=== PATIENT | male | born 1930 | race Caucasian/White ===

== ENCOUNTER 2016-04-11 12:57 | Emergency (ER) | payer OTHER ==
[2016-04-11 13:24] VITALS: BP 140/69; PULSE 74; TEMP 97.8; BMI 19.7
--- NOTE | 2016-04-11 14:44 | PDOC ---
History of Present Illness - General Chief Complaint: Pain Stated Complaint: FALL (PCP SENT) Time Seen by Provider: 04/11/16 14:26 History Source: Patient Exam Limitations: No Limitations - History of Present Illness Initial Comments: 04/11/16 14:46 86y M hx of afib on coumadin, stomach ca, htn, presents from PMD office for evvaluation. The pt fell ou tof bed 1 week ago, approx 2 feet, complaining of pain to his L hip, L rib area. Pt dneis any headache, neck pain, back pain, loc , vision changes, n/v, cough, sob, cp, abd pain, le pain. pt went to dr. salcedo office for evaluation and was sent to the ED for evaluation. pt has been citlaliin yesi per . pt ambulates with assistance and denies any pain when ambulating. Past History - Past Medical History Allergies/Adverse Reactions: Allergies Allergy/AdvReac Type Severity Reaction Status Date / Time aspirin Allergy Rash Verified 04/11/16 13:25 Home Medications: Ambulatory Orders Metoprolol "Xl" (Sustain Act) [Toprol Xl] 50 mg PO DAILY 08/09/11 Warfarin Na [Coumadin] 2 mg PO DAILY@1800 08/09/11 Furosemide [Lasix] 20 mg PO ASDIR 04/11/16 Metformin HCl 500 mg PO DAILY 04/11/16 Potassium Chloride [Klor-Con M10] 10 meq PO ASDIR 04/11/16 Tramadol HCl 50 mg PO TID #21 tablet MDD 3 04/11/16 Anemia: No Asthma: No Cancer: Yes (stomach) Cardiac Disorders: Yes (ATRIAL FIBRILLATION) CVA: No COPD: No CHF: No Dementia: No Diabetes: No GI Disorders: No Disorders: No HTN: Yes Hypercholesterolemia: No Liver Disease: No Seizures: No Thyroid Disease: No - Surgical History Abdominal Surgery: Yes Appendectomy: No Cardiac Surgery: No Cholecystectomy: Yes Lung Surgery: No Neurologic Surgery: No Orthopedic Surgery: No - Psycho/Social/Smoking Cessation Hx Suicidal Ideation: No Smoking History: Never smoked Information on smoking cessation initiated: No Hx Alcohol Use: No Drug/Substance Use Hx: No Review of Systems - Review of Systems Able to Perform ROS?: Yes Comments:: 04/11/16 14:57 Constitutional - no reported Fever, Chills, weakness, HEENT: no reported vision changes, sore throat Respiratory: no reported cough, sob, hemoptysis Cardiac: no reported chest pain, palpitations, light headedness, leg swelling Abd/GI: no reported abd pain, nausea, vomiting, blood per rectum, melena, diarrhea : no reported dysuria, frequency, discharge Musculskelatal - +L sided rib pain, L hip pain no reported back pain, joint swelling skin - no reported bruising, erythema, rash neurological: no reported headache, numbness, focal weakness, tingling, ataxia, weakness hematologic: no reported anemia, easy bruising, easy bleeding *Physical Exam - Vital Signs Last Vital Signs Temp Pulse Resp BP Pulse Ox 97.8 F 74 18 140/69 100 04/11/16 13:19 04/11/16 13:19 04/11/16 13:19 04/11/16 13:19 04/11/16 13:19 - Physical Exam Comments: 04/11/16 14:59 GENERAL: The patient is awake, alert, and fully oriented, Nontoxic - in no acute distress. HEAD: Normocephalic, atraumatic. EYES: extraocular movements intact, sclera anicteric, conjunctiva clear. ENT: Normal voice, Moist mucous membranes. NECK: Normal range of motion, supple LUNGS: Breath sounds equal, clear to auscultation bilaterally. No wheezes, no rhonchi, no rales. HEART: Regular rate and rhythm, normal S1 and S2 without murmur, rub or gallop. ABDOMEN: Soft, nontender, normoactive bowel sounds. No guarding, no rebound. No CVA tenderness NEUROLOGICAL: No facial assymetry, Normal speech, PSYCH: Normal mood, normal affect. SKIN: Warm, Dry, normal turgor, Back: No midline tenderness to the cervical, thoracic or lumbar spine Musculoskelatal: FROM of b/l shoulders, elbows, wrist. FROM of hips, knees, ankles - No signs of ecchymosis, erythema, or crepitus noted on palpation extremities, chest wall, clavicals, back. mild tenderness to L lateral ribs, w/ o crepitus/eechymosis/erythema, minma tenderness to lL iliac crest, slightly shuffling gait, but no discomfort when ambulating ED Treatment Course - LABORATORY CBC & Chemistry Diagram: 04/11/16 15:08 04/11/16 15:08 Medical Decision Making - Medical Decision Making 04/11/16 15:01 no focal bony tenderness on back to suggest spinal fx no trauma on scalp no headache/n/v/dizziness or other sypmtoms to suggest ich will ck labs to r/o metabolic derangement, anemia will ck inr will ck xray of ribs, hip/pelvis will give tylenol will reassess 04/11/16 17:18 labs reviewed INR slightly thereapeutic xray of ribs/chest/hip negative cxr shows some atelectasis - inconsistant with pna as pt is otherwise asypmtomatic will d/c the pt to fu with pmd reutrn precuations were discussed I discussed the physical exam findings, ancillary test results and final diagnoses with the patient. I answered all of the patient's questions. The patient was satisfied with the care received and felt comfortable with the discharge plan and treatment plan. The patient will call their primary care physician within 24 hours to arrange follow-up and will return to the Emergency Department with any new, persistent or worsening symptoms. caes was d/w dr haile, agrees [facility] and will follow up with him tomorrow *DC/Admit/Observation/Transfer Diagnosis at time of Disposition: Rib pain on left side Fall from bed Qualifiers: Encounter type: initial encounter Qualified Code(s): W06.XXXA - Fall from bed, initial encounter - Discharge Dispostion Disposition: HOME Condition at time of disposition: Improved Admit: No - Prescriptions Prescriptions: Tramadol HCl 50 mg PO TID #21 tablet MDD 3 - Referrals Referrals: Tung Haile MD [Primary Care Provider] - - Patient Instructions Printed Discharge Instructions: DI for Rib Contusion Additional Instructions: Return to the emergency department immediately with ANY new, persistent or worsening symptoms including any worseing pain. Take iburpfeon/tylenol for your pain. You MUST call and follow up with your doctor tomorrow for further evaluation of your symptoms. Results were discussed with you. Please make sure your doctor reviews the results of your emergency evaluation. If you had any xrays during your visit, it was read preliminarily by myself, a Radiologist will review it and if there are any additional findings we will call you.
[2016-04-11] MEDS ORDERED: ACETAMINOPHEN 325 MG TABLET (FP) PO ONE (14:45)
[2016-04-11] MEDS ORDERED: ACETAMINOPHEN 325 MG TABLET (FP) ONE (14:53)
[2016-04-11 15:29] LABS: BASOPHIL 1.4 % (0-2.0); EOSINOPHIL 0.8 % (0-4.5); MEAN CELL VOLUME 80.6 fl (80-96); NEUTROPHILS 52.7 % (42.8-82.8); PLATELET COUNT 479 K/MM3 (134-434); RDW 18.5 % (11.9-15.9); WHITE BLOOD COUNT 7.7 K/mm3 (4.0-10.0)
[2016-04-11 15:38] LABS: INR 3.93 (0.82-1.09); PROTHROMBIN TIME (PATIENT) 44.4 SEC (9.98-11.88)
[2016-04-11 15:40] LABS: ALBUMIN 3.2 g/dl (3.4-5.0); ALK PHOS 169 U/L (45-117); ANION GAP 10 (8-16); BILIRUBIN,TOTAL 0.6 mg/dL (0.2-1.0); CALCIUM 9.4 mg/dL (8.5-10.1); CO2 29 mmol/L (21-32); GLUCOSE,RANDOM 91 mg/dL (74-106); SGOT/AST 68 U/L (15-37); SGPT/ALT 49 U/L (12-78); TOT PROT 6.9 g/dl (6.4-8.2)
== END 2016-04-11 19:15 | disposition home or self-care (01) ==
LOC: JER 12:57
DX: R07.81 Pleurodynia (principal); M25.552 Pain in left hip; W06.XXXA Fall from bed, initial encounter; Y93.89 Activity, other specified; Y92.013 Bedroom of single-family (private) house as the place of occurrence of the external cause; I48.91 Unspecified atrial fibrillation; Z79.01 Long term (current) use of anticoagulants; I10 Essential (primary) hypertension; Z85.028 Personal history of other malignant neoplasm of stomach
CPT/HCPCS: 36415; 71020-TC; 71101-TC; 73523-TC; 80053; 85025; 85610; 99281-25

== ENCOUNTER 2016-04-15 10:43 | Inpatient (IN) | payer OTHER ==
--- NOTE | 2016-04-15 12:23 | PDOC ---
History of Present Illness - General Chief Complaint: Pain Stated Complaint: ABD PAIN Time Seen by Provider: 04/15/16 11:58 History Source: Patient, Spouse - History of Present Illness Timing/Duration: reports: constant Quality: reports: severe Abdominal Pain Onset Location: reports: LUQ Pain Radiation: reports: no radiation Past History - Past Medical History Allergies/Adverse Reactions: Allergies Allergy/AdvReac Type Severity Reaction Status Date / Time aspirin Allergy Rash Verified 04/15/16 10:47 Home Medications: Ambulatory Orders Metoprolol "Xl" (Sustain Act) [Toprol Xl] 50 mg PO DAILY 08/09/11 Warfarin Na [Coumadin] 2 mg PO DAILY@1800 08/09/11 Furosemide [Lasix] 20 mg PO ASDIR 04/11/16 Metformin HCl 500 mg PO DAILY 04/11/16 Potassium Chloride [Klor-Con M10] 10 meq PO ASDIR 04/11/16 Tramadol HCl 50 mg PO TID #21 tablet MDD 3 04/11/16 Anemia: No Asthma: No Cancer: Yes (stomach) Cardiac Disorders: Yes (ATRIAL FIBRILLATION) CVA: No COPD: No CHF: No Dementia: No Diabetes: Yes GI Disorders: No Disorders: No HTN: Yes Hypercholesterolemia: Yes Liver Disease: No Seizures: No Thyroid Disease: No - Surgical History Abdominal Surgery: Yes Appendectomy: No Cardiac Surgery: No Cholecystectomy: Yes Lung Surgery: No Neurologic Surgery: No Orthopedic Surgery: No - Psycho/Social/Smoking Cessation Hx Suicidal Ideation: No Smoking History: Never smoked Have you smoked in the past 12 months: No Information on smoking cessation initiated: No Hx Alcohol Use: No Drug/Substance Use Hx: No Review of Systems - Review of Systems Constitutional: No: Chills, Fever Respiratory: No: Cough, Shortness of Breath Cardiac (ROS): No: Chest Pain ABD/GI: No: Constipated, Diarrhea, Nausea, Rectal Bleeding, Vomiting, Tarry Stools : No: Dysuria *Physical Exam - Vital Signs Last Vital Signs Temp Pulse Resp BP Pulse Ox 98.4 F 73 18 153/98 100 04/15/16 10:47 04/15/16 10:47 04/15/16 10:47 04/15/16 10:47 04/15/16 10:47 - Physical Exam General Appearance: Yes: Appropriately Dressed. No: Apparent Distress HEENT: positive: Normal Voice Respiratory/Chest: positive: Lungs Clear, Normal Breath Sounds. negative: Respiratory Distress Cardiovascular: positive: Regular Rate, S1, S2 Gastrointestinal/Abdominal: positive: Normal Bowel Sounds, Soft. negative: Tender, Distended, Guarding, Hernia, Mass Musculoskeletal: negative: CVA Tenderness Extremity: positive: Normal Inspection Integumentary: positive: Dry, Warm Neurologic: positive: Fully Oriented, Alert, Normal Mood/Affect ED Treatment Course - LABORATORY CBC & Chemistry Diagram: 04/15/16 12:01 04/15/16 12:01 - RADIOLOGY Radiology Studies Ordered: Category Date Time Status ABDOMEN & PELVIS CT WITH CONTR [CT] Stat CT Scan 04/15/16 12:18 Ordered CHEST X-RAY PORTABLE* [RAD] Stat Radiology 04/15/16 11:59 Ordered Medical Decision Making - Medical Decision Making 04/15/16 12:19 86-year-old male, history of A. fib on Coumadin, stomach cancer status post gastrectomy 40 years ago, hypertension, presents with abd pain. Patient reports left upper quadrant pain that has been constant 2 weeks, unable to describe. As per , pain so severe that pt has a difficult time ambulating. Pt was seen in ED status post fall 4 days ago and was complaining of left rib pain then with negative x-rays. insists that LUQ pain started prior to fall. Pt denies changes to bowel movement, blood per rectum, melena, nausea, vomiting, fever or chills. No recent weight loss. Reports no chest pain or shortness of breath. See exam Upper abd pain Stable w/ unimpressive abd exam -pain control -labs -CT given h/o gastric ca -dispo pending 04/15/16 12:24 04/15/16 13:40 Patient's PMD ,Dr. Tung Amador, contacted me. Agrees with CAT scan in ED and would like to be contacted with disposition at [phone] 04/15/16 16:15 04/15/16 16:56 CT read *DC/Admit/Observation/Transfer Diagnosis at time of Disposition: Pneumonia Qualifiers: Pneumonia type: due to unspecified organism Laterality: unspecified laterality Lung location: unspecified part of lung Qualified Code(s): J18.9 - Pneumonia, unspecified organism - Discharge Dispostion Condition at time of disposition: Fair Admit: Yes Addendum entered and electronically signed by Gavin Geiger PA 04/15/16 17:02 : CT demonstrates bibasal consolidation/pneumonia, right more than left with borderline dilatation of the common bile duct and constipation. Case discussed with Dr. Amador who recommends treating for possible pneumonia and admitting with consults to Dr. Dockery of pulmonary and Dr. Sparrow of GI
[2016-04-15 12:39] LABS: EOSINOPHIL 0.3 % (0-4.5); MCH 25.9 pg (25.7-33.7); MEAN CELL VOLUME 80.9 fl (80-96); MEAN PLT VOLUME 9.2 fl (7.5-11.1); NEUTROPHILS 62.4 % (42.8-82.8); PLATELET COUNT 373 K/MM3 (134-434); RDW 19.2 % (11.9-15.9); WHITE BLOOD COUNT 8.8 K/mm3 (4.0-10.0)
[2016-04-15 12:50] LABS: ALBUMIN 2.9 g/dl (3.4-5.0); ALK PHOS 156 U/L (45-117); ANION GAP 9 (8-16); BILIRUBIN,TOTAL 0.7 mg/dL (0.2-1.0); CALCIUM 8.8 mg/dL (8.5-10.1); CO2 29 mmol/L (21-32); GLUCOSE,RANDOM 100 mg/dL (74-106); SGOT/AST 32 U/L (15-37); SGPT/ALT 28 U/L (12-78); TOT PROT 6.5 g/dl (6.4-8.2)
[2016-04-15 12:52] LABS: TROPONIN I < 0.02 ng/ml (0.00-0.05)
[2016-04-15] MEDS ORDERED: AZITHROMYCIN IVPB 500 MG in DEXTROSE 5%-WATER - 250 ML IVPB ONE (16:54)
[2016-04-15] MEDS ORDERED: CEFTRIAXONE 50 ML ONE (17:44)
[2016-04-15] MEDS ORDERED: AZITHROMYCIN IVPB 250 ML IVPB ONE ×2 (17:44→17:46)
[2016-04-15] MEDS ORDERED: POLYETHYLENE GLYCOL 3350 255 GM BTL PO ONE (18:09)
[2016-04-15 18:52] LABS: PROTHROMBIN TIME (PATIENT) 65.6 SEC (9.98-11.88)
[2016-04-15 18:58] LABS: INR 5.75 (0.82-1.09)
[2016-04-15 19:31] VITALS: BMI 24.2
[2016-04-15] MEDS ORDERED: POLYETHYLENE GLYCOL 3350 119 GM BTL PO ONE (21:15)
[2016-04-15 21:32] LABS: PROTHROMBIN TIME (PATIENT) 61.7 SEC (9.98-11.88)
[2016-04-15 21:39] LABS: INR 5.42 (0.82-1.09)
[2016-04-15] MEDS: PIPERACILLIN/TAZOB 3.375 GM/50 ML PRE-DOCKED IVPB SCH (22:46)
[2016-04-15] MEDS: DOCUSATE SODIUM 100 MG CAPSULE (FP) PO SCH (22:46)
[2016-04-16] MEDS: DOCUSATE SODIUM 100 MG CAPSULE (FP) PO SCH ×3 (05:35→21:56)
[2016-04-16] MEDS: PIPERACILLIN/TAZOB 3.375 GM/50 ML PRE-DOCKED IVPB SCH ×2 (05:35→15:32)
[2016-04-16] MEDS: metFORMIN HCL 500 MG TABLET (FP) PO SCH (06:32)
[2016-04-16 09:07] LABS: MCH 25.9 pg (25.7-33.7); MCHC 32.3 g/dl (32.0-35.9); MEAN CELL VOLUME 80.1 fl (80-96); MEAN PLT VOLUME 8.9 fl (7.5-11.1); PLATELET COUNT 348 K/MM3 (134-434); RDW 19.1 % (11.9-15.9); WHITE BLOOD COUNT 9.2 K/mm3 (4.0-10.0)
[2016-04-16 09:16] LABS: PROTHROMBIN TIME (PATIENT) 55.4 SEC (9.98-11.88)
[2016-04-16 10:16] LABS: INR 4.88 (0.82-1.09)
[2016-04-16 11:41] LABS: PLATELET COMMENT2 NO CLOTTING DETECTED; PLATELET ESTIMATE ADEQUATE (NORMAL)
[2016-04-16] MEDS: POTASSIUM CHLORIDE TABS 10 MEQ TABLET.ER (FP) PO SCH (11:41)
[2016-04-16] MEDS: METOPROLOL SUCCINATE 50 MG TAB.SR.24H (FP) PO SCH (11:41)
[2016-04-16 12:34] LABS: CALCIUM 8.7 mg/dL (8.5-10.1); CREATININE 0.8 mg/dL (0.7-1.3)
--- NOTE | 2016-04-16 13:03 | CONSULT ---
Cardiology Consult (text) - Consultation Consultation Note: Cardiology (Dr. Colmenares covering Dr. Ibrahim) Patient seen and examined Consulted for management of AFib, HTN and anticoagulation 86 M with h/o DM2, AF on AC (coumadin), S/P remote gastrectomy for gastric CA, HTN, admitted for evaluation of 2 week h/o left upper quadrant abdominal pain. Denies chest pain, dyspnea or palpitations at bedside and reports recent fall 1 week ago transferring from bed to standing No h/o CVA, DE or CAD Followed by Dr. Ibrahim and last seen approx 6 months ago Meds: Metoprolol 50mg daily Coumadin Metformin 500 Tramadol ALL: Asa - rash PE: 157/81mmHg, P 79/min Afebrile No distress Confused Irregular with no murmur Lungs clear bilaterally Abd is tender in LUQ No edema ECG: Afib at 85/min with LAFB and LVH Labs: INR 4.88, Hgb 11.6, Plt 348,000 BUN/Cr 10/0.8 AST/ALT 32/28 IMP: 1) AFib -Well rate controlled -Continue Metoprolol at 50mg daily -Supratherapeutic INR without bleeding -Agree with holding coumadin -Need to reassess anticoagulation candidacy given h/o recent fall -Would start IV UFH once INR <2. -Allergy to ASA 2) HTN -Elevated today -Will monitor and consider addition of CCB if remains elevated DM as per primary team Undergoing GI evaluation for abdominal pain and h/o gastric cancer
--- NOTE | 2016-04-16 13:10 | HP ---
Admitting History and Physical - Admission Chief Complaint: s/p fall 2 wks ago c/o luq pain History of Present Illness: s/p fall pneumonia on ct cheast stage 2 sacral ulcer constipated relieved w miralax feels better today History Source: Patient, Family Member Limitations to Obtaining History: Language Barrier, Other (mild dementia) - Past Medical History Cardiovascular: Yes: AFIB Pulmonary: Yes: Pneumonia Gastrointestinal: Yes: Constipation, Other (total gastrectomy /??? cancer stomach and cholocystectomy) Endocrine: Yes: Diabetes Mellitus Dermatology: Yes: Other (easy brusabiliy) - Smoking History Smoking history: Never smoked Have you smoked in the past 12 months: No - Alcohol/Substance Use Hx Alcohol Use: No - Social History Usual Living Arrangement: Yes: With Spouse ADL: Family Assistance History of Recent Travel: No Home Medications - Allergies Allergies/Adverse Reactions: Allergies Allergy/AdvReac Type Severity Reaction Status Date / Time aspirin Allergy Rash Verified 04/15/16 10:47 - Home Medications Home Medications: Ambulatory Orders Metoprolol "Xl" (Sustain Act) [Toprol Xl] 50 mg PO DAILY 08/09/11 Warfarin Na [Coumadin] mg PO DAILY@1800 08/09/11 Metformin HCl 500 mg PO DAILY 04/11/16 Tramadol HCl 50 mg PO TID #21 tablet MDD 3 04/11/16 Family Disease History - Family Disease History Family History: Unremarkable Review of Systems - Review of Systems Constitutional: reports: Other (abd pain) Eyes: reports: No Symptoms HENT: reports: No Symptoms Neck: reports: No Symptoms Cardiovascular: reports: No Symptoms Respiratory: reports: No Symptoms Gastrointestinal: reports: Bloating, Other (pain) Genitourinary: reports: No Symptoms Breasts: reports: No Symptoms Reported Musculoskeletal: reports: No Symptoms Integumentary: reports: Bruising Neurological: reports: Confusion (at times) Endocrine: reports: No Symptoms Hematology/Lymphatic: reports: Easily Bruised Psychiatric: reports: Other (dementia mild) Physical Examination Vital Signs: Vital Signs Temperature 98.0 F 04/16/16 09:00 Pulse Rate 79 04/16/16 11:19 Respiratory Rate 20 04/16/16 09:00 Blood Pressure 157/81 04/16/16 11:19 O2 Sat by Pulse Oximetry (%) 98 04/16/16 10:00 Constitutional: Yes: No Distress Eyes: Yes: WNL HENT: Yes: WNL Neck: Yes: WNL Cardiovascular: Yes: Pulse Irregular Respiratory: Yes: WNL Gastrointestinal: Yes: Distention, Hypoactive Bowel Sounds ...Rectal Exam: Yes: Deferred Renal/: Yes: WNL Breast(s): Yes: WNL Musculoskeletal: Yes: WNL Extremities: Yes: WNL Edema: No Edema: LUE: Trace Peripheral Pulses WNL: Yes Integumentary: Yes: Bruising Wound/Incision: Yes: Other (sacral ulcer stage 2) ...Motor Strength: WNL Psychiatric: Yes: Other (mild dementia) Labs: CBC, BMP 04/16/16 08:05 04/16/16 08:05 Problem List - Problems (1) Impaction of colon Code(s): K56.49 - OTHER IMPACTION OF INTESTINE (2) A-fib Code(s): I48.91 - UNSPECIFIED ATRIAL FIBRILLATION Assessment/Plan get aic level id gi to see pt giveb enema 1 liter fl resrition daily
--- NOTE | 2016-04-16 13:45 | CONSULT ---
Consult Consult Specialty:: GI Referred by:: Dr Lana Amador Reason for Consultation:: Abdominal pain - History of Present Illness Chief Complaint: Abdominal pain History of Present Illness: 86 M with h/o AF on AC, S/P remote gastrectomy for gastric CA, HTN, admitted for evaluation of 2 week h/o abdominal pain. He reports pain has been severe, /. Fell 4 days ago and was evaluated in the ED for L rib pain. Pain preceded fall as per . A CT was done That shows a troubling constellation of pancreatic and common bile duct dilatation. f - History Source History Provided By: Patient, Family Member, Medical Record Limitations to Obtaining History: No Limitations - Past Medical History Cardio/Vascular: Yes: AFIB Pulmonary: Yes: Pneumonia Gastrointestinal: Yes: Constipation, Other (total gastrectomy /??? cancer stomach and cholocystectomy) Endocrine: Yes: Diabetes Mellitus Dermatology: Yes: Other (easy brusabiliy) - Alcohol/Substance Use Hx Alcohol Use: No - Smoking History Smoking history: Never smoked Have you smoked in the past 12 months: No - Social History ADL: Family Assistance History of Recent Travel: No Home Medications - Allergies Allergies/Adverse Reactions: Allergies Allergy/AdvReac Type Severity Reaction Status Date / Time aspirin Allergy Rash Verified 04/15/16 10:47 - Home Medications Home Medications: Ambulatory Orders Metoprolol "Xl" (Sustain Act) [Toprol Xl] 50 mg PO DAILY 08/09/11 Warfarin Na [Coumadin] mg PO DAILY@1800 08/09/11 Metformin HCl 500 mg PO DAILY 04/11/16 Tramadol HCl 50 mg PO TID #21 tablet MDD 3 04/11/16 Physical Exam-GI Vital Signs: Vital Signs Temperature 98.0 F 04/16/16 09:00 Pulse Rate 79 04/16/16 11:19 Respiratory Rate 20 04/16/16 09:00 Blood Pressure 157/81 04/16/16 11:19 O2 Sat by Pulse Oximetry (%) 98 04/16/16 10:00 Constitutional: Yes: Well Nourished, Anxious HENT: Yes: Normocephalic Neck: Yes: Supple Cardiovascular: Yes: Pulse Irregular Respiratory: Yes: Regular Gastrointestinal Inspection: Yes: WNL ...Palpate: Yes: Soft, Tenderness, Epigastium ...Percussion: Yes: Tympanitic Labs: CBC, BMP 04/16/16 08:05 04/16/16 08:05 INR, PTT INR 4.88 (0.82-1.09) H* 04/16/16 08:20 Hepatic Panel Total Bilirubin 0.7 mg/dL (0.2-1.0) 04/15/16 12:01 AST 32 U/L (15-37) D 04/15/16 12:01 ALT 28 U/L (12-78) D 04/15/16 12:01 Alkaline Phosphatase 156 U/L (45-117) H 04/15/16 12:01 Albumin 2.9 g/dl (3.4-5.0) L 04/15/16 12:01 Imaging - Results Cat Scan: Report Reviewed Assessment/Plan 86 M with above history now admitted with 2 week h/o abdominal pain with CT showing double duct sign. Normal LFT's. R/O pancreatic ca vs cholangiocarcinoma. MRI ordered. Tumor markers ordered Continue low Na diet Will follow
--- NOTE | 2016-04-16 14:16 | PN ---
Progress Note (short form) - Note Progress Note: PULMONARY CHART REVIEWED CT ABD NOTED HAVE ORDERED CT CHEST NO CONTRAST FULL CONSULT TO FOLLOWGaby VALENZUELA MD
--- NOTE | 2016-04-16 15:13 | CONSULT ---
Consult Consult Specialty:: infectious diseases Referred by:: Reason for Consultation:: pneumonia,abd pain - History of Present Illness Chief Complaint: abd pain History of Present Illness: Patient does not speak bolivian history taken from the charts 86-year-old male, history of A. fib on Coumadin, stomach cancer status post gastrectomy 40 years ago, hypertension, presents with abd pain. Patient reports left upper quadrant pain that has been constant 2 weeks, unable to describe. As per , pain so severe that pt has a difficult time ambulating. Pt was seen in ED status post fall 4 days ago and was complaining of left rib pain then with negative x-rays. insists that LUQ pain started prior to fall. Pt denies changes to bowel movement, blood per rectum, melena, nausea, vomiting, fever or chills. No recent weight loss. Reports no chest pain or shortness of breath. patient was worked up and and on ct scan was found to have pleural effusion and pneumonia possibly bilateral patient also has sacral ulcer stage patient otherwise uncomfortable - History Source History Provided By: Patient, Medical Record Limitations to Obtaining History: Language Barrier - Past Medical History Cardio/Vascular: Yes: AFIB Pulmonary: Yes: Pneumonia Gastrointestinal: Yes: Constipation, Other (total gastrectomy /??? cancer stomach and cholocystectomy) Endocrine: Yes: Diabetes Mellitus Dermatology: Yes: Other (easy brusabiliy) - Alcohol/Substance Use Hx Alcohol Use: No - Smoking History Smoking history: Never smoked Have you smoked in the past 12 months: No - Social History ADL: Family Assistance History of Recent Travel: No Home Medications - Allergies Allergies/Adverse Reactions: Allergies Allergy/AdvReac Type Severity Reaction Status Date / Time aspirin Allergy Rash Verified 04/15/16 10:47 - Home Medications Home Medications: Ambulatory Orders Metoprolol "Xl" (Sustain Act) [Toprol Xl] 50 mg PO DAILY 08/09/11 Warfarin Na [Coumadin] mg PO DAILY@1800 08/09/11 Metformin HCl 500 mg PO DAILY 04/11/16 Tramadol HCl 50 mg PO TID #21 tablet MDD 3 04/11/16 Review of Systems - Review of Systems Constitutional: reports: Loss of Appetite, Weakness Eyes: reports: No Symptoms HENT: reports: No Symptoms Neck: reports: No Symptoms Cardiovascular: reports: No Symptoms Respiratory: reports: Cough Gastrointestinal: reports: Abdominal Pain Genitourinary: reports: No Symptoms Integumentary: reports: No Symptoms Neurological: reports: No Symptoms Endocrine: reports: No Symptoms Hematology/Lymphatic: reports: No Symptoms Psychiatric: reports: No Symptoms Physical Exam Vital Signs: Vital Signs Temperature 98.0 F 04/16/16 09:00 Pulse Rate 79 04/16/16 11:19 Respiratory Rate 20 04/16/16 09:00 Blood Pressure 157/81 04/16/16 11:19 O2 Sat by Pulse Oximetry (%) 98 04/16/16 10:00 Constitutional: Yes: Other (failure to thrive) Eyes: Yes: Conjunctiva Clear HENT: Yes: Atraumatic Neck: Yes: Supple Cardiovascular: Yes: Pulse Irregular Respiratory: Yes: Regular, Poor Air Entry, Rhonchi Gastrointestinal: Yes: Normal Bowel Sounds, Soft Musculoskeletal: Yes: WNL Extremities: Yes: Other (patient has multiple bruise gomez on both upper ext) Neurological: Yes: Alert, Oriented Psychiatric: Yes: Alert Labs: CBC, BMP 04/16/16 08:05 04/16/16 08:05 Imaging - Results Chest X-ray: Report Reviewed, Image Reviewed Cat Scan: Report Reviewed, Image Reviewed (of abd) Assessment/Plan after loking at the patients history i think patient is aspirating agree with the ct of the chest Problem List - Problems (1) Impaction of colon Code(s): K56.49 - OTHER IMPACTION OF INTESTINE (2) A-fib Code(s): I48.91 - UNSPECIFIED ATRIAL FIBRILLATION pneumonia abd pain plan we will continue zosyn' await for ct of the chest
[2016-04-16] MEDS: ACETAMINOPHEN 325 MG TABLET (FP) PO PRN (16:26)
--- NOTE | 2016-04-16 16:30 | EKG ---
Test Reason : Blood Pressure : / mmHG Vent. Rate : 079 BPM Atrial Rate : 090 BPM P-R Int : 000 ms QRS Dur : 100 ms QT Int : 380 ms P-R-T Axes : 000 -57 024 degrees QTc Int : 435 ms POOR DATA QUALITY, INTERPRETATION MAY BE ADVERSELY AFFECTED ATRIAL FIBRILLATION LEFT ANTERIOR FASCICULAR BLOCK MODERATE VOLTAGE CRITERIA FOR LVH, MAY BE NORMAL VARIANT ABNORMAL ECG WHEN COMPARED WITH ECG OF 17-AUG-2010 12:53, ATRIAL FIBRILLATION HAS REPLACED SINUS RHYTHM Confirmed by JULIO VILLASEÑOR MD ([id number]) on 04/16/2016 4:29:59 PM Referred By: Confirmed By:JULIO VILLASEÑOR MD
[2016-04-16] MEDS ORDERED: WARFARIN NA 1 MG TABLET (FP) PO SCH ×2 (18:00)
[2016-04-16] MEDS: PIPERACILLIN/TAZOB 3.375 GM 50 ML IVPB SCH (20:04)
[2016-04-17] MEDS: PIPERACILLIN/TAZOB 3.375 GM 50 ML IVPB SCH ×3 (02:18→18:02)
[2016-04-17] MEDS: DOCUSATE SODIUM 100 MG CAPSULE (FP) PO SCH ×3 (06:26→22:00)
[2016-04-17] MEDS: metFORMIN HCL 500 MG TABLET (FP) PO SCH (06:26)
[2016-04-17] MEDS: ACETAMINOPHEN 325 MG TABLET (FP) PO PRN (07:09)
[2016-04-17 08:13] LABS: BASOPHIL 0.6 % (0-2.0); EOSINOPHIL 0.5 % (0-4.5); MCH 25.9 pg (25.7-33.7); MCHC 32.2 g/dl (32.0-35.9); MEAN CELL VOLUME 80.4 fl (80-96); MEAN PLT VOLUME 9.1 fl (7.5-11.1); NEUTROPHILS 67.8 % (42.8-82.8); PLATELET COUNT 371 K/MM3 (134-434); RDW 19.4 % (11.9-15.9)
[2016-04-17 08:33] LABS: CALCIUM 8.7 mg/dL (8.5-10.1); CREATININE 0.8 mg/dL (0.7-1.3)
[2016-04-17] MEDS: POTASSIUM CHLORIDE TABS 10 MEQ TABLET.ER (FP) PO SCH (09:38)
[2016-04-17] MEDS: METOPROLOL SUCCINATE 50 MG TAB.SR.24H (FP) PO SCH (09:38)
--- NOTE | 2016-04-17 11:17 | CONSULT ---
Consult Consult Specialty:: PULMONARY Reason for Consultation:: SOB - History of Present Illness Chief Complaint: SOB History of Present Illness: 86 M with h/o DM2, AF on AC (coumadin), S/P remote gastrectomy for gastric CA, HTN, admitted for evaluation of 2 week h/o left upper quadrant abdominal pain. Denies chest pain, dyspnea or palpitations. 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 cancer stomach and cholocystectomy) Endocrine: Yes: Diabetes Mellitus Dermatology: Yes: Other (easy brusabiliy) - Alcohol/Substance Use Hx Alcohol Use: No - Smoking History Smoking history: Never smoked Have you smoked in the past 12 months: No - Social History ADL: Family Assistance Place of : Other History of Recent Travel: No Home Medications - Allergies Allergies/Adverse Reactions: Allergies Allergy/AdvReac Type Severity Reaction Status Date / Time aspirin Allergy Rash Verified 04/15/16 10:47 - Home Medications Home Medications: Ambulatory Orders Metoprolol "Xl" (Sustain Act) [Toprol Xl] 50 mg PO DAILY 08/09/11 Warfarin Na [Coumadin] mg PO DAILY@1800 08/09/11 Metformin HCl 500 mg PO DAILY 04/11/16 Tramadol HCl 50 mg PO TID #21 tablet MDD 3 04/11/16 Family Disease History - Family Disease History Family History: Unremarkable Review of Systems - Review of Systems Respiratory: denies: Cough, Hemoptysis, SOB, Wheezing Physical Exam Vital Sings: Vital Signs Temperature 97.4 F L 04/17/16 06:00 Pulse Rate 87 04/17/16 06:00 Respiratory Rate 20 04/17/16 06:00 Blood Pressure 158/86 04/17/16 06:00 O2 Sat by Pulse Oximetry (%) 98 04/16/16 21:00 Constitutional: Yes: Calm Eyes: Yes: EOM Intact HENT: Yes: Normocephalic Neck: Yes: Trachea Midline Cardiovascular: Yes: S1, S2 Respiratory: Yes: Diminished (BREATH SOUNDS AT RIGHT BASE) Gastrointestinal: Yes: Normal Bowel Sounds, Soft Edema: No Labs: CBC, BMP 04/17/16 06:35 04/17/16 06:35 REST OF LABS REVIEWED Imaging - Results Chest X-ray: Image Reviewed Cat Scan: Image Reviewed Problem List - Problems (1) A-fib Code(s): I48.91 - UNSPECIFIED ATRIAL FIBRILLATION (2) Impaction of colon Code(s): K56.49 - OTHER IMPACTION OF INTESTINE (3) Pleural effusion Code(s): J90 - PLEURAL EFFUSION, NOT ELSEWHERE CLASSIFIED Assessment/Plan RIGHT LARGE VOLUME PLEURAL EFFUSION WITH COMPRESSIVE ATELECTASIS SMALL LEFT SIDED EFFUSION LACK OF FEVER AND NORMAL WBC WITH NO CLEAR CUT INFILTRATE ON CT SPEAK AGAINST FACILITY ACQUIRED PNEUMONIA MAY CONSIDER OBSERVING OFF ANTIBIOTICS/WILL LEAVE THAT TO ID [employer] TENDER IF PATIENT HAS NOT HAD A PREVIOUS THORACENTESIS WOULD CONSIDER HOLDING A/C AND HAVE IR PERFORM ECHO/CARDIO F/U R BIANCA SIERRA
[2016-04-17 11:29] LABS: INR 2.58 (0.82-1.09); PROTHROMBIN TIME (PATIENT) 28.9 SEC (9.98-11.88)
--- NOTE | 2016-04-17 11:51 | PN ---
Progress Note, Physician History of Present Illness: No events overnight No complaints No chest pain or dyspnea - Current Medication List Current Medications: Active Medications Acetaminophen (Tylenol -) 650 mg PO Q4H PRN PRN Reason: FEVER OR PAIN Last Admin: 04/17/16 07:09 Dose: 650 mg Docusate Sodium (Colace -) 100 mg PO TID [facility] Last Admin: 04/17/16 06:26 Dose: 100 mg Furosemide (Lasix -) 20 mg PO MoTuWeFr@1000 [facility] Piperacillin Sod/Tazobactam Sod (Zosyn 3.375gm Ivpb (Pre-Docked)) 50 mls @ 100 mls/hr IVPB Q8H-IV [facility] Last Admin: 04/17/16 09:39 Dose: 100 mls/hr Lisinopril (Prinivil) 5 mg PO DAILY [facility] Metformin HCl (Glucophage -) 500 mg PO DAILY@0700 [facility] Last Admin: 04/17/16 06:26 Dose: 500 mg Metoprolol Succinate (Toprol Xl -) 50 mg PO DAILY [facility] Last Admin: 04/17/16 09:38 Dose: 50 mg Potassium Chloride (K-Dur -) 10 meq PO DAILY [facility] Last Admin: 04/17/16 09:38 Dose: 10 meq - Objective Vital Signs: Vital Signs Temperature 97.4 F L 04/17/16 06:00 Pulse Rate 87 04/17/16 06:00 Respiratory Rate 20 04/17/16 06:00 Blood Pressure 158/86 04/17/16 06:00 O2 Sat by Pulse Oximetry (%) 98 04/16/16 21:00 Constitutional: Yes: No Distress, Calm Eyes: Yes: WNL HENT: Yes: WNL Neck: Yes: WNL Cardiovascular: Yes: WNL Respiratory: Yes: WNL, Regular Gastrointestinal: Yes: WNL, Tenderness Edema: No Labs: CBC, BMP 04/17/16 06:35 04/17/16 06:35 INR, PTT INR 2.58 (0.82-1.09) H D 04/17/16 11:08 Assessment/Plan 1) AFib -Well rate controlled -Continue Metoprolol at 50mg daily -Supratherapeutic INR without bleeding -Agree with holding coumadin -Need to reassess anticoagulation candidacy given h/o recent fall -Would start IV UFH once INR <2. -Allergy to ASA 2) HTN -Elevated today -Will start Lisinopril 5mg daily DM as per primary team Undergoing GI evaluation for abdominal pain and h/o gastric cancer
[2016-04-17] MEDS ORDERED: BENZOCAINE 28 GM HEMORRHOIDAL OINTMENT PR PRN (13:14)
--- NOTE | 2016-04-17 13:17 | PN ---
Progress Note, Physician Chief Complaint: gen pain when moving him hemorroids pain urgency plan flomax ointmeny pr chk ct chest mri abd - Current Medication List Current Medications: Active Medications Acetaminophen (Tylenol -) 650 mg PO Q4H PRN PRN Reason: FEVER OR PAIN Last Admin: 04/17/16 07:09 Dose: 650 mg Benzocaine (Americaine Ointment -) 1 applic [place] PRN PRN PRN Reason: PAIN Docusate Sodium (Colace -) 100 mg PO TID [facility] Last Admin: 04/17/16 06:26 Dose: 100 mg Furosemide (Lasix -) 20 mg PO MoTuWeFr@1000 [facility] Piperacillin Sod/Tazobactam Sod (Zosyn 3.375gm Ivpb (Pre-Docked)) 50 mls @ 100 mls/hr IVPB Q8H-IV [facility] Last Admin: 04/17/16 09:39 Dose: 100 mls/hr Lisinopril (Prinivil) 5 mg PO DAILY [facility] Metformin HCl (Glucophage -) 500 mg PO DAILY@0700 [facility] Last Admin: 04/17/16 06:26 Dose: 500 mg Metoprolol Succinate (Toprol Xl -) 50 mg PO DAILY [facility] Last Admin: 04/17/16 09:38 Dose: 50 mg Potassium Chloride (K-Dur -) 10 meq PO DAILY [facility] Last Admin: 04/17/16 09:38 Dose: 10 meq Tamsulosin HCl (Flomax -) 0.4 mg PO DAILY@0830 [facility] - Objective Vital Signs: Vital Signs Temperature 97.4 F L 04/17/16 06:00 Pulse Rate 87 04/17/16 06:00 Respiratory Rate 20 04/17/16 06:00 Blood Pressure 158/86 04/17/16 06:00 O2 Sat by Pulse Oximetry (%) 98 04/16/16 21:00 Labs: CBC, BMP 04/17/16 06:35 04/17/16 06:35 INR, PTT INR 2.58 (0.82-1.09) H D 04/17/16 11:08 Problem List - Problems (1) Impaction of colon Code(s): K56.49 - OTHER IMPACTION OF INTESTINE (2) A-fib Code(s): I48.91 - UNSPECIFIED ATRIAL FIBRILLATION
[2016-04-17] MEDS ORDERED: HYDROmorphone HCL 2 MG TABLET PO PRN ×2 (14:32)
[2016-04-17] MEDS: LISINOPRIL 5 MG TABLET (FP) PO SCH (14:59)
--- NOTE | 2016-04-17 16:22 | PN ---
GI Progress Note Subjective: Didn't tolerate MRI yesterday. Patient yelling and screaming during the procedure with too much movement to generate an accurate report. Repeat today with nurse and family present and did much better. Not read yet. - Objective Vital Signs: Vital Signs Temperature 97.4 F L 04/17/16 14:49 Pulse Rate 79 04/17/16 14:49 Respiratory Rate 20 04/17/16 14:49 Blood Pressure 142/74 04/17/16 14:49 O2 Sat by Pulse Oximetry (%) 98 04/16/16 21:00 Constitutional: Thin HENT: Yes: Normocephalic Neck: Yes: Supple Cardiovascular: Yes: Regular Rate and Rhythm Respiratory: Yes: CTA Bilaterally ...Auscultate: Yes: Normoactive Bowel Sounds ...Palpate: Yes: Soft. No: Tenderness Labs: CBC, BMP 04/17/16 06:35 04/17/16 06:35 INR, PTT INR 2.58 (0.82-1.09) H D 04/17/16 11:08 - ....Imaging MRI: Pending (Await official read) Assessment/Plan 86 M with above history now admitted with 2 week h/o abdominal pain with CT showing double duct sign. Normal LFT's. R/O pancreatic ca vs cholangiocarcinoma. MRI done-report pending. Tumor markers ordered and still pending Continue low Na diet Will follow
--- NOTE | 2016-04-17 16:55 | PN ---
Progress Note, Physician History of Present Illness: confused but awake and alert - Current Medication List Current Medications: Active Medications Acetaminophen (Tylenol -) 650 mg PO Q4H PRN PRN Reason: FEVER OR PAIN Last Admin: 04/17/16 07:09 Dose: 650 mg Benzocaine (Americaine Ointment -) 1 applic [place] PRN PRN PRN Reason: PAIN Docusate Sodium (Colace -) 100 mg PO TID [facility] Last Admin: 04/17/16 14:58 Dose: 100 mg Furosemide (Lasix -) 20 mg PO MoTuWeFr@1000 [facility] Hydromorphone HCl (Dilaudid -) 1 mg PO Q4H PRN Last Admin: 04/17/16 14:58 Dose: 1 mg Hydromorphone HCl (Dilaudid -) 1 mg PO Q6H PRN Piperacillin Sod/Tazobactam Sod (Zosyn 3.375gm Ivpb (Pre-Docked)) 50 mls @ 100 mls/hr IVPB Q8H-IV [facility] Last Admin: 04/17/16 09:39 Dose: 100 mls/hr Lisinopril (Prinivil) 5 mg PO DAILY [facility] Last Admin: 04/17/16 14:59 Dose: 5 mg Metformin HCl (Glucophage -) 500 mg PO DAILY@0700 [facility] Last Admin: 04/17/16 06:26 Dose: 500 mg Metoprolol Succinate (Toprol Xl -) 50 mg PO DAILY [facility] Last Admin: 04/17/16 09:38 Dose: 50 mg Potassium Chloride (K-Dur -) 10 meq PO DAILY [facility] Last Admin: 04/17/16 09:38 Dose: 10 meq Tamsulosin HCl (Flomax -) 0.4 mg PO DAILY@0830 [facility] Warfarin Sodium (Coumadin -) 1 mg PO DAILY@1800 [facility] - Objective Vital Signs: Vital Signs Temperature 97.4 F L 04/17/16 14:49 Pulse Rate 79 04/17/16 14:49 Respiratory Rate 20 04/17/16 14:49 Blood Pressure 142/74 04/17/16 14:49 O2 Sat by Pulse Oximetry (%) 97 04/17/16 10:00 Constitutional: Yes: No Distress, Calm Neck: Yes: Supple Cardiovascular: Yes: Regular Rate and Rhythm Respiratory: Yes: Regular, Poor Air Entry, Rhonchi Musculoskeletal: Yes: WNL Extremities: Yes: WNL Neurological: Yes: Alert, Confusion Psychiatric: Yes: Alert Labs: CBC, BMP 04/17/16 06:35 04/17/16 06:35 INR, PTT INR 2.58 (0.82-1.09) H D 04/17/16 11:08 - ....Imaging Cat Scan: Image Reviewed Assessment/Plan after loking at the patients history i think patient is aspirating agree with the ct of the chest Problem List - Problems (1) Impaction of colon Code(s): K56.49 - OTHER IMPACTION OF INTESTINE (2) A-fib Code(s): I48.91 - UNSPECIFIED ATRIAL FIBRILLATION pneumonia abd pain pleural effusion plan contiue modestosyn await for all imaging results of mrcp and ercp
[2016-04-17] MEDS ORDERED: WARFARIN NA 1 MG TABLET (FP) PO SCH (18:00)
[2016-04-17] MEDS ORDERED: PT OWN MED DRAWER 7, Y5N ONE (21:18)
[2016-04-18] MEDS: PIPERACILLIN/TAZOB 3.375 GM 50 ML IVPB SCH ×3 (01:40→16:59)
[2016-04-18] MEDS: metFORMIN HCL 500 MG TABLET (FP) PO SCH (06:13)
[2016-04-18] MEDS: DOCUSATE SODIUM 100 MG CAPSULE (FP) PO SCH ×3 (06:13→22:53)
[2016-04-18 07:38] LABS: INR 2.29 (0.82-1.09); MCH 26.3 pg (25.7-33.7); MCHC 32.8 g/dl (32.0-35.9); MEAN CELL VOLUME 79.9 fl (80-96); MEAN PLT VOLUME 8.7 fl (7.5-11.1); PLATELET COUNT 347 K/MM3 (134-434); PROTHROMBIN TIME (PATIENT) 25.6 SEC (9.98-11.88); RDW 19.3 % (11.9-15.9); WHITE BLOOD COUNT 8.3 K/mm3 (4.0-10.0)
[2016-04-18 07:54] LABS: CALCIUM 8.1 mg/dL (8.5-10.1)
[2016-04-18 07:55] LABS: CREATININE 0.8 mg/dL (0.7-1.3)
[2016-04-18] MEDS: TAMSULOSIN HCL 0.4 MG CAP.ER.24H (FP) PO SCH (09:42)
[2016-04-18] MEDS: POTASSIUM CHLORIDE TABS 10 MEQ TABLET.ER (FP) PO SCH (09:42)
[2016-04-18] MEDS: METOPROLOL SUCCINATE 50 MG TAB.SR.24H (FP) PO SCH (11:44)
[2016-04-18] MEDS: FUROSEMIDE 20 MG TABLET (FP) PO SCH (11:44)
[2016-04-18] MEDS: LISINOPRIL 5 MG TABLET (FP) PO SCH (11:44)
[2016-04-18] MEDS: ACETAMINOPHEN 325 MG TABLET (FP) PO PRN ×2 (11:52→16:56)
--- NOTE | 2016-04-18 11:54 | PN ---
Progress Note, Physician History of Present Illness: PULLMONARY ALERT,C/O GENERALIZED PAINS,-SOB - Current Medication List Current Medications: Active Medications Acetaminophen (Tylenol -) 650 mg PO Q4H PRN PRN Reason: FEVER OR PAIN Last Admin: 04/17/16 07:09 Dose: 650 mg Benzocaine (Americaine Ointment -) 1 applic [place] PRN PRN PRN Reason: PAIN Docusate Sodium (Colace -) 100 mg PO TID [facility] Last Admin: 04/18/16 06:13 Dose: 100 mg Furosemide (Lasix -) 20 mg PO MoTuWeFr@1000 [facility] Piperacillin Sod/Tazobactam Sod (Zosyn 3.375gm Ivpb (Pre-Docked)) 50 mls @ 100 mls/hr IVPB Q8H-IV [facility] Last Admin: 04/18/16 09:44 Dose: 100 mls/hr Lisinopril (Prinivil) 5 mg PO DAILY [facility] Last Admin: 04/17/16 14:59 Dose: 5 mg Metformin HCl (Glucophage -) 500 mg PO DAILY@0700 [facility] Last Admin: 04/18/16 06:13 Dose: 500 mg Metoprolol Succinate (Toprol Xl -) 50 mg PO DAILY [facility] Last Admin: 04/17/16 09:38 Dose: 50 mg Potassium Chloride (K-Dur -) 10 meq PO DAILY [facility] Last Admin: 04/18/16 09:42 Dose: 10 meq Tamsulosin HCl (Flomax -) 0.4 mg PO DAILY@0830 [facility] Last Admin: 04/18/16 09:42 Dose: 0.4 mg Warfarin Sodium (Coumadin -) 1 mg PO DAILY@1800 [facility] Last Admin: 04/17/16 18:02 Dose: 1 mg - Objective Vital Signs: Vital Signs Temperature 98.2 F 04/18/16 11:26 Pulse Rate 88 04/18/16 11:26 Respiratory Rate 18 04/18/16 11:26 Blood Pressure 127/70 04/18/16 11:26 O2 Sat by Pulse Oximetry (%) 93 L 04/17/16 21:00 Constitutional: Yes: Calm, Thin Eyes: Yes: WNL HENT: Yes: WNL Neck: Yes: WNL Cardiovascular: Yes: Pulse Irregular, S1, S2 Respiratory: Yes: Rales (CRACKLES LEFT 1/3 UP) Gastrointestinal: Yes: Normal Bowel Sounds, Soft Extremities: Yes: WNL Edema: No Labs: CBC, BMP 04/18/16 06:35 04/18/16 06:35 INR, PTT INR 2.29 (0.82-1.09) H 04/18/16 06:35 Problem List - Problems (1) Rib pain on left side Code(s): R07.81 - PLEURODYNIA (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
--- NOTE | 2016-04-18 12:18 | PN ---
Progress Note, Physician History of Present Illness: No complaints and daughter at bedside - Current Medication List Current Medications: Active Medications Acetaminophen (Tylenol -) 650 mg PO Q4H PRN PRN Reason: FEVER OR PAIN Last Admin: 04/18/16 11:52 Dose: 650 mg Benzocaine (Americaine Ointment -) 1 applic [place] PRN PRN PRN Reason: PAIN Docusate Sodium (Colace -) 100 mg PO TID [facility] Last Admin: 04/18/16 06:13 Dose: 100 mg Furosemide (Lasix -) 20 mg PO MoTuWeFr@1000 [facility] Last Admin: 04/18/16 11:44 Dose: 20 mg Piperacillin Sod/Tazobactam Sod (Zosyn 3.375gm Ivpb (Pre-Docked)) 50 mls @ 100 mls/hr IVPB Q8H-IV [facility] Last Admin: 04/18/16 09:44 Dose: 100 mls/hr Lisinopril (Prinivil) 5 mg PO DAILY [facility] Last Admin: 04/18/16 11:44 Dose: 5 mg Metformin HCl (Glucophage -) 500 mg PO DAILY@0700 [facility] Last Admin: 04/18/16 06:13 Dose: 500 mg Metoprolol Succinate (Toprol Xl -) 50 mg PO DAILY [facility] Last Admin: 04/18/16 11:44 Dose: 50 mg Potassium Chloride (K-Dur -) 10 meq PO DAILY [facility] Last Admin: 04/18/16 09:42 Dose: 10 meq Tamsulosin HCl (Flomax -) 0.4 mg PO DAILY@0830 [facility] Last Admin: 04/18/16 09:42 Dose: 0.4 mg Warfarin Sodium (Coumadin -) 1 mg PO DAILY@1800 [facility] Last Admin: 04/17/16 18:02 Dose: 1 mg - Objective Vital Signs: Vital Signs Temperature 98.2 F 04/18/16 11:26 Pulse Rate 88 04/18/16 11:26 Respiratory Rate 18 04/18/16 11:26 Blood Pressure 127/70 04/18/16 11:26 O2 Sat by Pulse Oximetry (%) 93 L 04/17/16 21:00 Constitutional: Yes: No Distress, Calm Eyes: Yes: WNL HENT: Yes: WNL Neck: Yes: WNL Cardiovascular: Yes: Pulse Irregular Respiratory: Yes: WNL Musculoskeletal: Yes: WNL Extremities: Yes: WNL Edema: No Labs: CBC, BMP 04/18/16 06:35 04/18/16 06:35 INR, PTT INR 2.29 (0.82-1.09) H 04/18/16 06:35 Assessment/Plan 1) AFib -Well rate controlled -Continue Metoprolol at 50mg daily -Therapeutic INR without bleeding -Agree with holding coumadin -Need to reassess anticoagulation candidacy given h/o recent fall -Would start IV UFH once INR <2 in anticipation of possible GI procedures?. -Allergy to ASA 2) HTN -Better today -Continue Lisinopril 5mg daily DM as per primary team Undergoing GI evaluation for abdominal pain and h/o gastric cancer
--- NOTE | 2016-04-18 14:21 | CONSULT ---
Consult Consult Specialty:: urology Referred by:: Tung Amador MD Reason for Consultation:: urinary incontinence - History of Present Illness History of Present Illness: Patient is a 86 year old male admitted with pneumonia after a fall. The patient had symptoms of prostatism at home. He describes urinary frequency, urgency, with nocturia x3+ prior to hospitalization. The patient is a poor historian and the history was ascertained from the and daughter. The patient does not have a history of previous urlogic surgery, uti's, or gross hematuria. The patient denies gross hematuria. 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 cancer stomach and cholocystectomy) Endocrine: Yes: Diabetes Mellitus Dermatology: Yes: Other (easy brusabiliy) - Alcohol/Substance Use Hx Alcohol Use: No - Smoking History Smoking history: Never smoked Have you smoked in the past 12 months: No - Social History ADL: Family Assistance History of Recent Travel: No Home Medications - Allergies Allergies/Adverse Reactions: Allergies Allergy/AdvReac Type Severity Reaction Status Date / Time aspirin Allergy Rash Verified 04/15/16 10:47 - Home Medications Home Medications: Ambulatory Orders Metoprolol "Xl" (Sustain Act) [Toprol Xl] 50 mg PO DAILY 08/09/11 Warfarin Na [Coumadin] mg PO DAILY@1800 08/09/11 Metformin HCl 500 mg PO DAILY 04/11/16 Tramadol HCl 50 mg PO TID #21 tablet MDD 3 04/11/16 Physical Exam- Vital Signs: Vital Signs Temperature 98.2 F 04/18/16 11:26 Pulse Rate 88 04/18/16 11:26 Respiratory Rate 18 04/18/16 11:26 Blood Pressure 127/70 04/18/16 11:26 O2 Sat by Pulse Oximetry (%) 96 04/18/16 09:00 Constitutional: Yes: Cachectic Eyes: Yes: WNL, Conjunctiva Clear, EOM Intact HENT: Yes: WNL, Atraumatic, Normocephalic Neck: Yes: WNL, Supple, Trachea Midline Cardiovascular: Yes: Pulse Irregular Respiratory: Yes: Regular Gastrointestinal: Yes: Normal Bowel Sounds, Soft Renal/: Yes: Bladder Distention Kidneys: Yes: WNL Pelvis: Yes: Bladder Palpable Scrotum: Yes: WNL Penis: Yes: WNL Prostate Exam: Yes: Swollen Labs: CBC, BMP 04/18/16 06:35 04/18/16 06:35 Imaging - Results Cat Scan: Report Reviewed Assessment/Plan Impression bph urinary incontinence plan continue flomax bladder scan ordered to evaluate whether patient is in retention If patient is not in retention then ditropan xl at 5 mg daily may be started discussed with patient and family x 20 minutes
--- NOTE | 2016-04-18 14:54 | PN ---
Progress Note, Physician History of Present Illness: patient stable no issues family in room d/w the family patient has a history of confusion evaluated by urology bladder scan - Current Medication List Current Medications: Active Medications Acetaminophen (Tylenol -) 650 mg PO Q4H PRN PRN Reason: FEVER OR PAIN Last Admin: 04/18/16 11:52 Dose: 650 mg Benzocaine (Americaine Ointment -) 1 applic [place] PRN PRN PRN Reason: PAIN Docusate Sodium (Colace -) 100 mg PO TID [facility] Last Admin: 04/18/16 06:13 Dose: 100 mg Furosemide (Lasix -) 20 mg PO MoTuWeFr@1000 [facility] Last Admin: 04/18/16 11:44 Dose: 20 mg Piperacillin Sod/Tazobactam Sod (Zosyn 3.375gm Ivpb (Pre-Docked)) 50 mls @ 100 mls/hr IVPB Q8H-IV [facility] Last Admin: 04/18/16 09:44 Dose: 100 mls/hr Lisinopril (Prinivil) 5 mg PO DAILY [facility] Last Admin: 04/18/16 11:44 Dose: 5 mg Metformin HCl (Glucophage -) 500 mg PO DAILY@0700 [facility] Last Admin: 04/18/16 06:13 Dose: 500 mg Metoprolol Succinate (Toprol Xl -) 50 mg PO DAILY [facility] Last Admin: 04/18/16 11:44 Dose: 50 mg Potassium Chloride (K-Dur -) 10 meq PO DAILY [facility] Last Admin: 04/18/16 09:42 Dose: 10 meq Tamsulosin HCl (Flomax -) 0.4 mg PO DAILY@0830 [facility] Last Admin: 04/18/16 09:42 Dose: 0.4 mg Warfarin Sodium (Coumadin -) 1 mg PO DAILY@1800 [facility] Last Admin: 04/17/16 18:02 Dose: 1 mg - Objective Vital Signs: Vital Signs Temperature 98.2 F 04/18/16 11:26 Pulse Rate 88 04/18/16 11:26 Respiratory Rate 18 04/18/16 11:26 Blood Pressure 127/70 04/18/16 11:26 O2 Sat by Pulse Oximetry (%) 96 04/18/16 09:00 Constitutional: Yes: No Distress, Calm Cardiovascular: Yes: Regular Rate and Rhythm Respiratory: Yes: Regular, Poor Air Entry Gastrointestinal: Yes: Normal Bowel Sounds, Soft Musculoskeletal: Yes: WNL Extremities: Yes: WNL Neurological: Yes: Alert, Oriented Psychiatric: Yes: Alert Labs: CBC, BMP 04/18/16 06:35 04/18/16 06:35 INR, PTT INR 2.29 (0.82-1.09) H 04/18/16 06:35 Assessment/Plan Problem List - Problems (1) Impaction of colon Code(s): K56.49 - OTHER IMPACTION OF INTESTINE (2) A-fib Code(s): I48.91 - UNSPECIFIED ATRIAL FIBRILLATION pneumonia abd pain pleural effusion plan contiue zosyn await for all imaging results of mrcp results noted gi on case bladder scan
--- NOTE | 2016-04-18 15:36 | PN ---
Progress Note, Physician History of Present Illness: PT CONFUSED VSS APETITE OK BM OK APPREIETED AGREE W PLAN DITROPAN IF FLOMAX NI HELP NA BETERR CT CHEST AND MRI REVUED T10 FX LESS BACK PAIN SACRAL ULCER STAGE 2 PLAN IS WATCH INCRESING AGITATION - Current Medication List Current Medications: Active Medications Acetaminophen (Tylenol -) 650 mg PO Q4H PRN PRN Reason: FEVER OR PAIN Last Admin: 04/18/16 11:52 Dose: 650 mg Benzocaine (Americaine Ointment -) 1 applic [place] PRN PRN PRN Reason: PAIN Docusate Sodium (Colace -) 100 mg PO TID [facility] Last Admin: 04/18/16 15:18 Dose: Not Given Furosemide (Lasix -) 20 mg PO MoTuWeFr@1000 [facility] Last Admin: 04/18/16 11:44 Dose: 20 mg Piperacillin Sod/Tazobactam Sod (Zosyn 3.375gm Ivpb (Pre-Docked)) 50 mls @ 100 mls/hr IVPB Q8H-IV [facility] Last Admin: 04/18/16 09:44 Dose: 100 mls/hr Lisinopril (Prinivil) 5 mg PO DAILY [facility] Last Admin: 04/18/16 11:44 Dose: 5 mg Metformin HCl (Glucophage -) 500 mg PO DAILY@0700 [facility] Last Admin: 04/18/16 06:13 Dose: 500 mg Metoprolol Succinate (Toprol Xl -) 50 mg PO DAILY [facility] Last Admin: 04/18/16 11:44 Dose: 50 mg Potassium Chloride (K-Dur -) 10 meq PO DAILY [facility] Last Admin: 04/18/16 09:42 Dose: 10 meq Tamsulosin HCl (Flomax -) 0.4 mg PO DAILY@0830 [facility] Last Admin: 04/18/16 09:42 Dose: 0.4 mg Warfarin Sodium (Coumadin -) 1 mg PO DAILY@1800 [facility] Last Admin: 04/17/16 18:02 Dose: 1 mg - Objective Vital Signs: Vital Signs Temperature 97.6 F 04/18/16 15:15 Pulse Rate 71 04/18/16 15:15 Respiratory Rate 18 04/18/16 15:15 Blood Pressure 132/72 04/18/16 15:15 O2 Sat by Pulse Oximetry (%) 96 04/18/16 09:00 Labs: CBC, BMP 04/18/16 06:35 04/18/16 06:35 INR, PTT INR 2.29 (0.82-1.09) H 04/18/16 06:35 Problem List - Problems (1) Impaction of colon Code(s): K56.49 - OTHER IMPACTION OF INTESTINE (2) A-fib Code(s): I48.91 - UNSPECIFIED ATRIAL FIBRILLATION
[2016-04-18] MEDS: HALOPERIDOL 0.5 MG TABLET PO PRN (16:51)
[2016-04-18] MEDS: WARFARIN NA 1 MG TABLET (FP) PO SCH (19:13)
[2016-04-19] MEDS: PIPERACILLIN/TAZOB 3.375 GM 50 ML IVPB SCH ×3 (02:23→18:15)
[2016-04-19] MEDS: metFORMIN HCL 500 MG TABLET (FP) PO SCH (06:48)
[2016-04-19] MEDS: DOCUSATE SODIUM 100 MG CAPSULE (FP) PO SCH ×3 (06:48→22:40)
[2016-04-19 08:21] LABS: CALCIUM 8.6 mg/dL (8.5-10.1); CREATININE 0.9 mg/dL (0.7-1.3)
[2016-04-19] MEDS: TAMSULOSIN HCL 0.4 MG CAP.ER.24H (FP) PO SCH (08:35)
[2016-04-19 09:11] LABS: MCH 26.7 pg (25.7-33.7); MCHC 33.1 g/dl (32.0-35.9); MEAN CELL VOLUME 80.8 fl (80-96); PLATELET COUNT 300 K/MM3 (134-434); WHITE BLOOD COUNT 10.3 K/mm3 (4.0-10.0)
[2016-04-19] MEDS ORDERED: PT OWN MED DRAWER 7, Y5N ONE ×4 (11:02→22:30)
[2016-04-19] MEDS: POTASSIUM CHLORIDE TABS 10 MEQ TABLET.ER (FP) PO SCH (11:04)
[2016-04-19] MEDS: FUROSEMIDE 20 MG TABLET (FP) PO SCH (11:04)
[2016-04-19] MEDS: METOPROLOL SUCCINATE 50 MG TAB.SR.24H (FP) PO SCH (11:04)
[2016-04-19] MEDS: LISINOPRIL 5 MG TABLET (FP) PO SCH (11:04)
[2016-04-19] MEDS: SOLIFENACIN SUCCINATE 5 MG TAB (FP) PO SCH (11:05)
--- NOTE | 2016-04-19 11:10 | PN ---
Progress Note, Physician - Current Medication List Current Medications: Active Medications Acetaminophen (Tylenol -) 650 mg PO Q4H PRN PRN Reason: FEVER OR PAIN Last Admin: 04/18/16 16:56 Dose: 650 mg Benzocaine (Americaine Ointment -) 1 applic [place] PRN PRN PRN Reason: PAIN Docusate Sodium (Colace -) 100 mg PO TID [facility] Last Admin: 04/19/16 06:48 Dose: 100 mg Furosemide (Lasix -) 20 mg PO MoTuWeFr@1000 [facility] Last Admin: 04/18/16 11:44 Dose: 20 mg Haloperidol (Haldol -) 0.5 mg PO BID PRN PRN Reason: AGITATION Last Admin: 04/18/16 16:51 Dose: 0.5 mg Piperacillin Sod/Tazobactam Sod (Zosyn 3.375gm Ivpb (Pre-Docked)) 50 mls @ 100 mls/hr IVPB Q8H-IV [facility] Last Admin: 04/19/16 02:23 Dose: 100 mls/hr Lisinopril (Prinivil) 5 mg PO DAILY [facility] Last Admin: 04/18/16 11:44 Dose: 5 mg Metformin HCl (Glucophage -) 500 mg PO DAILY@0700 [facility] Last Admin: 04/19/16 06:48 Dose: 500 mg Metoprolol Succinate (Toprol Xl -) 50 mg PO DAILY [facility] Last Admin: 04/18/16 11:44 Dose: 50 mg Potassium Chloride (K-Dur -) 10 meq PO DAILY [facility] Last Admin: 04/18/16 09:42 Dose: 10 meq Solifenacin (Vesicare -) 5 mg PO DAILY [facility] Tamsulosin HCl (Flomax -) 0.4 mg PO DAILY@0830 [facility] Last Admin: 04/19/16 08:35 Dose: 0.4 mg Warfarin Sodium (Coumadin -) 1 mg PO DAILY@1800 [facility] Last Admin: 04/18/16 19:13 Dose: 1 mg - Objective Vital Signs: Vital Signs Temperature 98.7 F 04/19/16 06:00 Pulse Rate 92 H 04/19/16 06:00 Respiratory Rate 20 04/19/16 06:00 Blood Pressure 126/80 04/19/16 06:00 O2 Sat by Pulse Oximetry (%) 96 04/18/16 09:00 Labs: CBC, BMP 04/19/16 06:25 04/19/16 06:25 INR, PTT INR 2.29 (0.82-1.09) H 04/18/16 06:35 Problem List - Problems (1) Impaction of colon Code(s): K56.49 - OTHER IMPACTION OF INTESTINE (2) A-fib Code(s): I48.91 - UNSPECIFIED ATRIAL FIBRILLATION Assessment/Plan cxr in am no sx needed futile ercp woiuld be diff if pt insisting will send to [facility] cont as is
[2016-04-19 12:09] LABS: ANISOCYTOSIS 2+; FRAGMENTED CELL 1+; MICROCYTOSIS 1+; POIKILOCYTOSIS 4+; TARGET CELLS 3+
[2016-04-19 12:11] LABS: ACANTHOCYTES 1+; BURR CELLS 3+
--- NOTE | 2016-04-19 12:19 | PN ---
Progress Note (short form) - Note Progress Note: Awake in NAD on RA. Confused. Intake & Output 04/16/16 04/17/16 04/18/16 04/19/16 23:59 23:59 23:59 23:59 Intake Total 1080 1260 1510 50 Balance 1080 1260 1510 50 Last Vital Signs Temp Pulse Resp BP Pulse Ox 98.7 F 92 H 20 126/80 96 04/19/16 06:00 04/19/16 06:00 04/19/16 06:00 04/19/16 06:00 04/18/16 09:00 Active Medications Acetaminophen (Tylenol -) 650 mg PO Q4H PRN PRN Reason: FEVER OR PAIN Last Admin: 04/18/16 16:56 Dose: 650 mg Benzocaine (Americaine Ointment -) 1 applic [place] PRN PRN PRN Reason: PAIN Docusate Sodium (Colace -) 100 mg PO TID [facility] Last Admin: 04/19/16 06:48 Dose: 100 mg Furosemide (Lasix -) 20 mg PO MoTuWeFr@1000 [facility] Last Admin: 04/19/16 11:04 Dose: 20 mg Haloperidol (Haldol -) 0.5 mg PO BID PRN PRN Reason: AGITATION Last Admin: 04/18/16 16:51 Dose: 0.5 mg Piperacillin Sod/Tazobactam Sod (Zosyn 3.375gm Ivpb (Pre-Docked)) 50 mls @ 100 mls/hr IVPB Q8H-IV [facility] Last Admin: 04/19/16 11:05 Dose: 100 mls/hr Lisinopril (Prinivil) 5 mg PO DAILY [facility] Last Admin: 04/19/16 11:04 Dose: 5 mg Metformin HCl (Glucophage -) 500 mg PO DAILY@0700 [facility] Last Admin: 04/19/16 06:48 Dose: 500 mg Metoprolol Succinate (Toprol Xl -) 50 mg PO DAILY [facility] Last Admin: 04/19/16 11:04 Dose: 50 mg Potassium Chloride (K-Dur -) 10 meq PO DAILY [facility] Last Admin: 04/19/16 11:04 Dose: 10 meq Solifenacin (Vesicare -) 5 mg PO DAILY [facility] Last Admin: 04/19/16 11:05 Dose: 5 mg Tamsulosin HCl (Flomax -) 0.4 mg PO DAILY@0830 [facility] Last Admin: 04/19/16 08:35 Dose: 0.4 mg Warfarin Sodium (Coumadin -) 1 mg PO DAILY@1800 [facility] Last Admin: 04/18/16 19:13 Dose: 1 mg Constitutional: Yes: NAD, confused Eyes: Yes: WNL HENT: Yes: WNL Neck: Yes: WNL Cardiovascular: Yes: Pulse Irregular, S1, S2 Respiratory: Yes: Basilar rhonchi / crackles Gastrointestinal: Yes: Normal Bowel Sounds, Soft Extremities: Yes: WNL Edema: No Labs: Laboratory Results - last 24 hr 04/16/16 04/16/16 04/16/16 13:52 13:52 13:52 WBC RBC Hgb Hct MCV MCHC RDW Plt Count MPV Neutrophils % Lymphocytes % Poikilocytosis Anisocytosis Microcytosis Macrocytosis Target Cells [place] Cells Acanthocytes (Spur) Fragmented RBCs Morphology Comment Sodium Potassium Chloride Carbon Dioxide Anion Gap BUN Creatinine Random Glucose Calcium Tumor Marker AFP 4.6 Carcinoembryonic Ag 3.8 CA 19-9 Antigen 11 04/19/16 04/19/16 06:25 06:25 WBC 10.3 H RBC 4.41 Hgb 11.8 Hct 35.6 MCV 80.8 MCHC 33.1 RDW 20.0 H Plt Count 300 MPV 9.0 Neutrophils % Y Lymphocytes % Y Poikilocytosis 4+ Anisocytosis 2+ Microcytosis 1+ Macrocytosis 2+ Target Cells 3+ [place] Cells 3+ Acanthocytes (Spur) 1+ Fragmented RBCs 1+ Morphology Comment Slide scanned Sodium 143 Potassium 4.2 Chloride 106 Carbon Dioxide 28 Anion Gap 9 BUN 18 D Creatinine 0.9 Random Glucose 90 Calcium 8.6 Tumor Marker AFP Carcinoembryonic Ag CA 19-9 Antigen Problem List - Problems (1) Rib pain on left side Code(s): R07.81 - PLEURODYNIA (2) Gastric adenocarcinoma Code(s): C16.9 - MALIGNANT NEOPLASM OF STOMACH, UNSPECIFIED (3) A-fib Code(s): I48.91 - UNSPECIFIED ATRIAL FIBRILLATION (4) Impaction of colon Code(s): K56.49 - OTHER IMPACTION OF INTESTINE (5) Pleural effusion Code(s): J90 - PLEURAL EFFUSION, NOT ELSEWHERE CLASSIFIED Assessment/Plan RIGHT LARGE VOLUME PLEURAL EFFUSION WITH COMPRESSIVE ATELECTASIS SMALL LEFT SIDED EFFUSION R/O PANCREATIC CA H/O GASTRIC CA FOLLOW RADIOGRAPHS -> CAN CONSIDER THORACENTESIS BY IR IF NO IMPROVEMENT GI W/U ONGOING O2 NEEDED ASPIRATION PRECAUTIONS ON ABX PER ID DR BAEZ
--- NOTE | 2016-04-19 13:11 | PN ---
Progress Note, Physician History of Present Illness: patient stable no issues patient confused remaining stable all images noted - Current Medication List Current Medications: Active Medications Acetaminophen (Tylenol -) 650 mg PO Q4H PRN PRN Reason: FEVER OR PAIN Last Admin: 04/18/16 16:56 Dose: 650 mg Benzocaine (Americaine Ointment -) [address] PRN PRN PRN Reason: PAIN Docusate Sodium (Colace -) 100 mg PO TID [facility] Last Admin: 04/19/16 06:48 Dose: 100 mg Furosemide (Lasix -) 20 mg PO MoTuWeFr@1000 [facility] Last Admin: 04/19/16 11:04 Dose: 20 mg Haloperidol (Haldol -) 0.5 mg PO BID PRN PRN Reason: AGITATION Last Admin: 04/18/16 16:51 Dose: 0.5 mg Piperacillin Sod/Tazobactam Sod (Zosyn 3.375gm Ivpb (Pre-Docked)) 50 mls @ 100 mls/hr IVPB Q8H-IV [facility] Last Admin: 04/19/16 11:05 Dose: 100 mls/hr Lisinopril (Prinivil) 5 mg PO DAILY [facility] Last Admin: 04/19/16 11:04 Dose: 5 mg Metformin HCl (Glucophage -) 500 mg PO DAILY@0700 [facility] Last Admin: 04/19/16 06:48 Dose: 500 mg Metoprolol Succinate (Toprol Xl -) 50 mg PO DAILY [facility] Last Admin: 04/19/16 11:04 Dose: 50 mg Potassium Chloride (K-Dur -) 10 meq PO DAILY [facility] Last Admin: 04/19/16 11:04 Dose: 10 meq Solifenacin (Vesicare -) 5 mg PO DAILY [facility] Last Admin: 04/19/16 11:05 Dose: 5 mg Tamsulosin HCl (Flomax -) 0.4 mg PO DAILY@0830 [facility] Last Admin: 04/19/16 08:35 Dose: 0.4 mg Warfarin Sodium (Coumadin -) 1 mg PO DAILY@1800 [facility] Last Admin: 04/18/16 19:13 Dose: 1 mg - Objective Vital Signs: Vital Signs Temperature 98.7 F 04/19/16 06:00 Pulse Rate 92 H 04/19/16 06:00 Respiratory Rate 20 04/19/16 06:00 Blood Pressure 126/80 04/19/16 06:00 O2 Sat by Pulse Oximetry (%) 96 04/18/16 09:00 Constitutional: Yes: No Distress, Calm Cardiovascular: Yes: Regular Rate and Rhythm Respiratory: Yes: Regular Gastrointestinal: Yes: Normal Bowel Sounds, Soft Musculoskeletal: Yes: Other Extremities: Yes: WNL Neurological: Yes: Alert, Confusion Psychiatric: Yes: Alert Labs: CBC, BMP 04/19/16 06:25 04/19/16 06:25 INR, PTT INR 2.29 (0.82-1.09) H 04/18/16 06:35 Assessment/Plan Problem List - Problems (1) Impaction of colon Code(s): K56.49 - OTHER IMPACTION OF INTESTINE (2) A-fib Code(s): I48.91 - UNSPECIFIED ATRIAL FIBRILLATION pneumonia abd pain pleural effusion plan contiue zosyn probably no aggressive mgmt will be done will switch to oral after looking at the xrays rest as per primary
--- NOTE | 2016-04-19 15:35 | PN ---
Progress Note (short form) - Note Progress Note: reviewed MRCP,reviewed hospital course--h/o of gastric surgery in the past-- ERCP difficult--will need to send to tertiary center for further evaluation vs conservative management because of pats advanced age
[2016-04-19] MEDS: HALOPERIDOL 0.5 MG TABLET PO PRN (18:15)
[2016-04-19] MEDS: WARFARIN NA 1 MG TABLET (FP) PO SCH (18:26)
[2016-04-20] MEDS: PIPERACILLIN/TAZOB 3.375 GM 50 ML IVPB SCH ×3 (02:02→17:43)
[2016-04-20] MEDS: DOCUSATE SODIUM 100 MG CAPSULE (FP) PO SCH ×3 (07:39→21:32)
[2016-04-20] MEDS: metFORMIN HCL 500 MG TABLET (FP) PO SCH (07:40)
[2016-04-20 08:13] LABS: MCH 26.5 pg (25.7-33.7); MCHC 32.8 g/dl (32.0-35.9); MEAN CELL VOLUME 80.8 fl (80-96); MEAN PLT VOLUME 8.6 fl (7.5-11.1); PLATELET COUNT 259 K/MM3 (134-434); RDW 20.3 % (11.9-15.9); WHITE BLOOD COUNT 8.5 K/mm3 (4.0-10.0)
[2016-04-20] MEDS: TAMSULOSIN HCL 0.4 MG CAP.ER.24H (FP) PO SCH (08:23)
[2016-04-20 08:27] LABS: INR 2.8 (0.82-1.09); PROTHROMBIN TIME (PATIENT) 31.4 SEC (9.98-11.88)
[2016-04-20 08:53] LABS: CALCIUM 8.5 mg/dL (8.5-10.1); CREATININE 0.9 mg/dL (0.7-1.3)
[2016-04-20] MEDS: SOLIFENACIN SUCCINATE 5 MG TAB (FP) PO SCH (09:32)
[2016-04-20] MEDS: POTASSIUM CHLORIDE TABS 10 MEQ TABLET.ER (FP) PO SCH (09:32)
[2016-04-20] MEDS: HALOPERIDOL 0.5 MG TABLET PO PRN ×2 (09:32→21:32)
[2016-04-20] MEDS: METOPROLOL SUCCINATE 50 MG TAB.SR.24H (FP) PO SCH (09:32)
[2016-04-20] MEDS: LISINOPRIL 5 MG TABLET (FP) PO SCH (09:32)
[2016-04-20] MEDS: FUROSEMIDE 20 MG TABLET (FP) PO SCH (09:32)
--- NOTE | 2016-04-20 11:50 | CONSULT ---
Consultation: REQUESTING PROVIDER: Dr. López (Thoracic Surgery) CONSULT REQUEST: We have been asked to surgically evaluate this patient for right pleural effusion History Source: Patient, Family Member Limitations to Obtaining History: Language Barrier; mild dementia HISTORY OF PRESENT ILLNESS: Called to [facility] 86[facility] w/ PMHx noted below. Admitted to [facility] s/p fall with subsequent development of pneumonia as well as abd pain. Per GI note, admitted for evaluation of 2 week h/o abdominal pain. He reports pain has been severe, 01/10. Fell 4 days ago and was evaluated in the ED for L rib pain. Pain preceded fall as per . A CT was done That shows a troubling constellation of pancreatic and common bile duct dilatation. GI recommends transfer to tertiary care facility should he need an ERCP. Also onCT scan, note b/l pleural effusion (R>L). Chest xray also confirms R>L effusion. Denies CP, SOB, AGUILAR, wheezing, n/v/f/c or hemoptysis. PMHx: HTN, AFIB, Pneumonia, Constipation, Dementia, Diabetes Mellitus, easy brusabiliy) PSHx: Total gastrectomy /??? cancer stomach and cholecystectomy Smoking history: Never smoked Home Meds Metoprolol "Xl" (Sustain Act) [Toprol Xl] 50 mg PO DAILY Warfarin Na [Coumadin] 1 mg PO DAILY Metformin HCl 500 mg PO DAILY Tramadol HCl 50 mg PO TID #21 tablet Allergy: ASA ROS: CONSTITUTIONAL: SEE ABOVE. Absent: diaphoresis, generalized weakness, malaise, loss of appetite, weight change CARDIOVASCULAR: SEE ABOVE. Absent: syncope, palpitations RESPIRATORY: SEE ABOVE. GASTROINTESTINAL: Absent: SEE ABOVE. abdominal distension, diarrhea, constipation, melena, hematochezia GENITOURINARY: Absent: dysuria, frequency, urgency, hesitancy, hematuria, flank pain, genital pain MUSCULOSKELETAL: Absent: myalgia, arthralgia, joint swelling, back pain, neck pain SKIN: Absent: rash, itching, pallor HEMATOLOGIC/IMMUNOLOGIC: Absent: easy bleeding, easy bruising, lymphadenopathy, frequent infections NEUROLOGIC: Absent: focal weakness or paresthesias, dizziness, unsteady gait, seizure, mental status changes PSYCHIATRIC: Absent: anxiety, depression, suicidal or homicidal ideation, hallucinations. Last Vital Signs Temp Pulse Resp BP Pulse Ox 97.7 F 87 20 152/97 97 01/18/17 06:00 04/20/16 06:00 04/20/16 09:00 04/20/16 06:00 04/19/16 09:00 PE GENERAL: Awake, alert, in no acute distress. HEAD: Normal with no signs of trauma. EYES: Sclera anicteric, conjunctiva clear. NECK: Normal range of motion, supple without lymphadenopathy, JVD. LUNGS: Bi-basilar rhonchi / crackles. No accessory muscle use. HEART: afib. UE: 2+ pulses, warm, well-perfused. No cyanosis. Cap refill <2 seconds. Trace peripheral edema. LE: 2+ pulses, warm, well-perfused. No calf tenderness. Trace peripheral edema. SKIN: Stage 2 sacral ulcer (clean) LABS: CBC, BMP 04/20/16 06:35 04/20/16 06:35 INR, PTT INR 2.80 (0.82-1.09) H 04/20/16 06:35 Microbiology 04/15/16 17:16 Blood - Peripheral Venous Blood Culture - Preliminary NO GROWTH OBTAINED AFTER 96 HOURS, INCUBATION TO CONTINUE FOR 1 DAYS. 04/15/16 17:16 Blood - Peripheral Venous Blood Culture - Preliminary NO GROWTH OBTAINED AFTER 96 HOURS, INCUBATION TO CONTINUE FOR 1 DAYS. Problem List - Problems (1) Pleural effusion Assessment/Plan: Ordered right sided thoaracentesis Send specimen for: 1. AFB 2. Pleural fluid analysis 3. Pleural fluid culture & cytology 4. Pleural fluid cell count Continue medical management DVT ppx Dr. López (Thoracic) made aware and agrees with above plan. Code(s): J90 - PLEURAL EFFUSION, NOT ELSEWHERE CLASSIFIED (2) Pneumonia Code(s): J18.9 - PNEUMONIA, UNSPECIFIED ORGANISM Qualifiers: Pneumonia type: due to unspecified organism Laterality: unspecified laterality Lung location: unspecified part of lung Qualified Code(s) : J18.9 - Pneumonia, unspecified organism (3) A-fib Code(s): I48.91 - UNSPECIFIED ATRIAL FIBRILLATION Visit type - Case Type Case Type: ED Admission
--- NOTE | 2016-04-20 11:56 | EKG ---
Test Reason : Blood Pressure : / mmHG Vent. Rate : 085 BPM Atrial Rate : 073 BPM P-R Int : 000 ms QRS Dur : 104 ms QT Int : 392 ms P-R-T Axes : 000 -61 018 degrees QTc Int : 466 ms ATRIAL FIBRILLATION LEFT ANTERIOR FASCICULAR BLOCK MINIMAL VOLTAGE CRITERIA FOR LVH, MAY BE NORMAL VARIANT ANTERIOR INFARCT , AGE UNDETERMINED ABNORMAL ECG WHEN COMPARED WITH ECG OF 15-APR-2016 12:59, NONSPECIFIC T WAVE ABNORMALITY NOW EVIDENT IN ANTERIOR LEADS Confirmed by GRISELDA SIERRA, NATASHA ([id number]) on 04/20/2016 11:55:27 AM Referred By: Confirmed By:NATASHA VILLALOBOS MD
--- NOTE | 2016-04-20 12:11 | PN ---
Progress Note, Physician History of Present Illness: pulmonary alert,-resp distress. - Current Medication List Current Medications: Active Medications Acetaminophen (Tylenol -) 650 mg PO Q4H PRN PRN Reason: FEVER OR PAIN Last Admin: 04/18/16 16:56 Dose: 650 mg Benzocaine (Americaine Ointment -) 1 applic [place] PRN PRN PRN Reason: PAIN Docusate Sodium (Colace -) 100 mg PO TID [facility] Last Admin: 04/20/16 07:39 Dose: 100 mg Furosemide (Lasix -) 20 mg PO MoTuWeFr@1000 [facility] Last Admin: 04/20/16 09:32 Dose: 20 mg Haloperidol (Haldol -) 0.5 mg PO BID PRN PRN Reason: AGITATION Last Admin: 04/20/16 09:32 Dose: 0.5 mg Piperacillin Sod/Tazobactam Sod (Zosyn 3.375gm Ivpb (Pre-Docked)) 50 mls @ 100 mls/hr IVPB Q8H-IV [facility] Last Admin: 04/20/16 09:31 Dose: 100 mls/hr Lisinopril (Prinivil) 5 mg PO DAILY [facility] Last Admin: 04/20/16 09:32 Dose: 5 mg Metformin HCl (Glucophage -) 500 mg PO DAILY@0700 [facility] Last Admin: 04/20/16 07:40 Dose: 500 mg Metoprolol Succinate (Toprol Xl -) 50 mg PO DAILY [facility] Last Admin: 04/20/16 09:32 Dose: 50 mg Potassium Chloride (K-Dur -) 10 meq PO DAILY [facility] Last Admin: 04/20/16 09:32 Dose: 10 meq Solifenacin (Vesicare -) 5 mg PO DAILY [facility] Last Admin: 04/20/16 09:32 Dose: 5 mg Tamsulosin HCl (Flomax -) 0.4 mg PO DAILY@0830 [facility] Last Admin: 04/20/16 08:23 Dose: 0.4 mg Warfarin Sodium (Coumadin -) 1 mg PO DAILY@1800 [facility] Last Admin: 04/19/16 18:26 Dose: 1 mg - Objective Vital Signs: Vital Signs Temperature 97.7 F 04/20/16 06:00 Pulse Rate 87 04/20/16 06:00 Respiratory Rate 20 04/20/16 09:00 Blood Pressure 152/97 04/20/16 06:00 O2 Sat by Pulse Oximetry (%) 97 04/19/16 09:00 Constitutional: Yes: Calm, Thin Eyes: Yes: WNL HENT: Yes: WNL Neck: Yes: WNL Cardiovascular: Yes: Pulse Irregular, S1, S2 Respiratory: Yes: Diminished, Rhonchi (FEW SCATTERED RHONCHI) Gastrointestinal: Yes: Normal Bowel Sounds, Soft Extremities: Yes: WNL Edema: No Labs: CBC, BMP 04/20/16 06:35 04/20/16 06:35 INR, PTT INR 2.80 (0.82-1.09) H 04/20/16 06:35 - ....Imaging Chest X-ray: Report Reviewed, Image Reviewed Problem List - Problems (1) Rib pain on left side Code(s): R07.81 - PLEURODYNIA (2) Gastric adenocarcinoma Code(s): C16.9 - MALIGNANT NEOPLASM OF STOMACH, UNSPECIFIED Assessment/Plan Problem List - Problems (1) A-fib Code(s): I48.91 - UNSPECIFIED ATRIAL FIBRILLATION (2) Impaction of colon Code(s): K56.49 - OTHER IMPACTION OF INTESTINE (3) Pleural effusion Code(s): J90 - PLEURAL EFFUSION, NOT ELSEWHERE CLASSIFIED Assessment/Plan RIGHT PLEURAL EFUSION SMALL LEFT SIDED EFFUSION DOUBT PNEUMONIA R/O PANCREATIC CA H/O GASTRIC CA IF PATIENT HAS NOT HAD A PREVIOUS THORACENTESIS WOULD CONSIDER HOLDING A/C AND HAVE IR PERFORM GI W/U DR LEIGH
--- NOTE | 2016-04-20 14:05 | PN ---
Progress Note, Physician Chief Complaint: pt very confused po ok vss plan chst sx to thorocetisis asp precautions cont all tx as is any sx not advised s[poke to family fl may be malg in origin - Current Medication List Current Medications: Active Medications Acetaminophen (Tylenol -) 650 mg PO Q4H PRN PRN Reason: FEVER OR PAIN Last Admin: 04/18/16 16:56 Dose: 650 mg Benzocaine (Americaine Ointment -) 1 applic [place] PRN PRN PRN Reason: PAIN Docusate Sodium (Colace -) 100 mg PO TID [facility] Last Admin: 04/20/16 07:39 Dose: 100 mg Furosemide (Lasix -) 20 mg PO MoTuWeFr@1000 [facility] Last Admin: 04/20/16 09:32 Dose: 20 mg Haloperidol (Haldol -) 0.5 mg PO BID PRN PRN Reason: AGITATION Last Admin: 04/20/16 09:32 Dose: 0.5 mg Piperacillin Sod/Tazobactam Sod (Zosyn 3.375gm Ivpb (Pre-Docked)) 50 mls @ 100 mls/hr IVPB Q8H-IV [facility] Last Admin: 04/20/16 09:31 Dose: 100 mls/hr Lisinopril (Prinivil) 5 mg PO DAILY [facility] Last Admin: 04/20/16 09:32 Dose: 5 mg Metformin HCl (Glucophage -) 500 mg PO DAILY@0700 [facility] Last Admin: 04/20/16 07:40 Dose: 500 mg Metoprolol Succinate (Toprol Xl -) 50 mg PO DAILY [facility] Last Admin: 04/20/16 09:32 Dose: 50 mg Potassium Chloride (K-Dur -) 10 meq PO DAILY [facility] Last Admin: 04/20/16 09:32 Dose: 10 meq Solifenacin (Vesicare -) 5 mg PO DAILY [facility] Last Admin: 04/20/16 09:32 Dose: 5 mg Tamsulosin HCl (Flomax -) 0.4 mg PO DAILY@0830 [facility] Last Admin: 04/20/16 08:23 Dose: 0.4 mg Warfarin Sodium (Coumadin -) 1 mg PO DAILY@1800 [facility] Last Admin: 04/19/16 18:26 Dose: 1 mg - Objective Vital Signs: Vital Signs Temperature 97.7 F 04/20/16 06:00 Pulse Rate 87 04/20/16 06:00 Respiratory Rate 20 04/20/16 09:00 Blood Pressure 152/97 04/20/16 06:00 O2 Sat by Pulse Oximetry (%) 97 04/19/16 09:00 Labs: CBC, BMP 04/20/16 06:35 04/20/16 06:35 INR, PTT INR 2.80 (0.82-1.09) H 04/20/16 06:35 Problem List - Problems (1) Impaction of colon Code(s): K56.49 - OTHER IMPACTION OF INTESTINE (2) A-fib Code(s): I48.91 - UNSPECIFIED ATRIAL FIBRILLATION
--- NOTE | 2016-04-20 17:00 | PN ---
Progress Note, Physician History of Present Illness: patient very confused patient tolerated diet - Current Medication List Current Medications: Active Medications Acetaminophen (Tylenol -) 650 mg PO Q4H PRN PRN Reason: FEVER OR PAIN Last Admin: 04/18/16 16:56 Dose: 650 mg Benzocaine (Americaine Ointment -) 1 applic [place] PRN PRN PRN Reason: PAIN Docusate Sodium (Colace -) 100 mg PO TID [facility] Last Admin: 04/20/16 15:49 Dose: Not Given Furosemide (Lasix -) 20 mg PO MoTuWeFr@1000 [facility] Last Admin: 04/20/16 09:32 Dose: 20 mg Haloperidol (Haldol -) 0.5 mg PO BID PRN PRN Reason: AGITATION Last Admin: 04/20/16 09:32 Dose: 0.5 mg Piperacillin Sod/Tazobactam Sod (Zosyn 3.375gm Ivpb (Pre-Docked)) 50 mls @ 100 mls/hr IVPB Q8H-IV [facility] Last Admin: 04/20/16 09:31 Dose: 100 mls/hr Lisinopril (Prinivil) 5 mg PO DAILY [facility] Last Admin: 04/20/16 09:32 Dose: 5 mg Metformin HCl (Glucophage -) 500 mg PO DAILY@0700 [facility] Last Admin: 04/20/16 07:40 Dose: 500 mg Metoprolol Succinate (Toprol Xl -) 50 mg PO DAILY [facility] Last Admin: 04/20/16 09:32 Dose: 50 mg Potassium Chloride (K-Dur -) 10 meq PO DAILY [facility] Last Admin: 04/20/16 09:32 Dose: 10 meq Solifenacin (Vesicare -) 5 mg PO DAILY [facility] Last Admin: 04/20/16 09:32 Dose: 5 mg Tamsulosin HCl (Flomax -) 0.4 mg PO DAILY@0830 [facility] Last Admin: 04/20/16 08:23 Dose: 0.4 mg Warfarin Sodium (Coumadin -) 1 mg PO DAILY@1800 [facility] Last Admin: 04/19/16 18:26 Dose: 1 mg - Objective Vital Signs: Vital Signs Temperature 98 F 04/20/16 15:42 Pulse Rate 91 H 04/20/16 15:42 Respiratory Rate 16 04/20/16 15:42 Blood Pressure 95/61 04/20/16 15:42 O2 Sat by Pulse Oximetry (%) 97 04/19/16 09:00 Constitutional: Yes: Other Eyes: Yes: Conjunctiva Clear Cardiovascular: Yes: Regular Rate and Rhythm Respiratory: Yes: Poor Air Entry, Rhonchi, Other (rt side) Gastrointestinal: Yes: Normal Bowel Sounds, Soft Musculoskeletal: Yes: WNL Extremities: Yes: WNL Neurological: Yes: Confusion Labs: CBC, BMP 04/20/16 06:35 04/20/16 06:35 INR, PTT INR 2.80 (0.82-1.09) H 04/20/16 06:35 Assessment/Plan Problem List - Problems (1) Impaction of colon Code(s): K56.49 - OTHER IMPACTION OF INTESTINE (2) A-fib Code(s): I48.91 - UNSPECIFIED ATRIAL FIBRILLATION pneumonia abd pain confusion pleural effusion plan continue abx for now await for final plan
[2016-04-20] MEDS: WARFARIN NA 1 MG TABLET (FP) PO SCH (17:36)
[2016-04-20] MEDS: ACETAMINOPHEN 325 MG TABLET (FP) PO PRN (22:52)
[2016-04-21] MEDS ORDERED: PT OWN MED DRAWER 7, Y5N ONE ×2 (00:08→12:25)
[2016-04-21] MEDS: PIPERACILLIN/TAZOB 3.375 GM 50 ML IVPB SCH ×2 (01:25→10:05)
[2016-04-21] MEDS: DOCUSATE SODIUM 100 MG CAPSULE (FP) PO SCH ×3 (06:45→21:30)
[2016-04-21] MEDS: metFORMIN HCL 500 MG TABLET (FP) PO SCH (06:45)
[2016-04-21 07:50] LABS: INR 2.31 (0.82-1.09); PROTHROMBIN TIME (PATIENT) 25.9 SEC (9.98-11.88)
[2016-04-21 08:24] LABS: MCH 26.1 pg (25.7-33.7); MCHC 32.3 g/dl (32.0-35.9); MEAN CELL VOLUME 80.8 fl (80-96); MEAN PLT VOLUME 9.2 fl (7.5-11.1); PLATELET COUNT 251 K/MM3 (134-434); RDW 19.9 % (11.9-15.9); WHITE BLOOD COUNT 9.7 K/mm3 (4.0-10.0)
[2016-04-21 09:07] LABS: CALCIUM 9.1 mg/dL (8.5-10.1); CREATININE 0.9 mg/dL (0.7-1.3)
[2016-04-21] MEDS: TAMSULOSIN HCL 0.4 MG CAP.ER.24H (FP) PO SCH (09:25)
[2016-04-21] MEDS: LISINOPRIL 5 MG TABLET (FP) PO SCH (10:04)
[2016-04-21] MEDS: METOPROLOL SUCCINATE 50 MG TAB.SR.24H (FP) PO SCH (10:04)
[2016-04-21] MEDS: POTASSIUM CHLORIDE TABS 10 MEQ TABLET.ER (FP) PO SCH (10:05)
--- NOTE | 2016-04-21 10:48 | PN ---
Progress Note, Physician - Current Medication List Current Medications: Active Medications Acetaminophen (Tylenol -) 650 mg PO Q4H PRN PRN Reason: FEVER OR PAIN Last Admin: 04/20/16 22:52 Dose: 650 mg Benzocaine (Americaine Ointment -) 1 applic [place] PRN PRN PRN Reason: PAIN Docusate Sodium (Colace -) 100 mg PO TID [facility] Last Admin: 04/21/16 06:45 Dose: 100 mg Furosemide (Lasix -) 20 mg PO MoTuWeFr@1000 [facility] Last Admin: 04/20/16 09:32 Dose: 20 mg Haloperidol (Haldol -) 0.5 mg PO BID PRN PRN Reason: AGITATION Last Admin: 04/20/16 09:32 Dose: 0.5 mg Piperacillin Sod/Tazobactam Sod (Zosyn 3.375gm Ivpb (Pre-Docked)) 50 mls @ 100 mls/hr IVPB Q8H-IV [facility] Last Admin: 04/21/16 10:05 Dose: 100 mls/hr Lisinopril (Prinivil) 5 mg PO DAILY [facility] Last Admin: 04/21/16 10:04 Dose: Not Given Metformin HCl (Glucophage -) 500 mg PO DAILY@0700 [facility] Last Admin: 04/21/16 06:45 Dose: 500 mg Metoprolol Succinate (Toprol Xl -) 50 mg PO DAILY [facility] Last Admin: 04/21/16 10:04 Dose: Not Given Potassium Chloride (K-Dur -) 10 meq PO DAILY [facility] Last Admin: 04/21/16 10:05 Dose: 10 meq Solifenacin (Vesicare -) 5 mg PO DAILY [facility] Last Admin: 04/20/16 09:32 Dose: 5 mg Tamsulosin HCl (Flomax -) 0.4 mg PO DAILY@0830 [facility] Last Admin: 04/21/16 09:25 Dose: 0.4 mg Warfarin Sodium (Coumadin -) 1 mg PO DAILY@1800 [facility] Last Admin: 04/20/16 17:36 Dose: Not Given - Objective Vital Signs: Vital Signs Temperature 97.6 F 04/21/16 10:02 Pulse Rate 89 04/21/16 10:02 Respiratory Rate 20 04/21/16 10:02 Blood Pressure 97/51 04/21/16 10:02 O2 Sat by Pulse Oximetry (%) 97 04/19/16 09:00 Labs: CBC, BMP 04/21/16 06:40 04/21/16 06:40 INR, PTT INR 2.31 (0.82-1.09) H 04/21/16 06:40 Problem List - Problems (1) Impaction of colon Code(s): K56.49 - OTHER IMPACTION OF INTESTINE (2) A-fib Code(s): I48.91 - UNSPECIFIED ATRIAL FIBRILLATION Assessment/Plan pt appears calm now by side no distess na high take off fluid restriction wait inr less 1.8 than thorocetisis
[2016-04-21] MEDS: ACETAMINOPHEN 325 MG TABLET (FP) PO PRN (12:29)
[2016-04-21] MEDS: SOLIFENACIN SUCCINATE 5 MG TAB (FP) PO SCH (12:29)
--- NOTE | 2016-04-21 13:25 | PN ---
Progress Note, Physician History of Present Illness: PULMONARY AWAKE ,CONFUSED ,RESP DISTRESS - Current Medication List Current Medications: Active Medications Acetaminophen (Tylenol -) 650 mg PO Q4H PRN PRN Reason: FEVER OR PAIN Last Admin: 04/21/16 12:29 Dose: 650 mg Benzocaine (Americaine Ointment -) 1 applic [place] PRN PRN PRN Reason: PAIN Docusate Sodium (Colace -) 100 mg PO TID [facility] Last Admin: 04/21/16 06:45 Dose: 100 mg Furosemide (Lasix -) 20 mg PO MoTuWeFr@1000 [facility] Last Admin: 04/20/16 09:32 Dose: 20 mg Haloperidol (Haldol -) 0.5 mg PO BID PRN PRN Reason: AGITATION Last Admin: 04/20/16 09:32 Dose: 0.5 mg Piperacillin Sod/Tazobactam Sod (Zosyn 3.375gm Ivpb (Pre-Docked)) 50 mls @ 100 mls/hr IVPB Q8H-IV [facility] Last Admin: 04/21/16 10:05 Dose: 100 mls/hr Lisinopril (Prinivil) 5 mg PO DAILY [facility] Last Admin: 04/21/16 10:04 Dose: Not Given Metformin HCl (Glucophage -) 500 mg PO DAILY@0700 [facility] Last Admin: 04/21/16 06:45 Dose: 500 mg Metoprolol Succinate (Toprol Xl -) 50 mg PO DAILY [facility] Last Admin: 04/21/16 10:04 Dose: Not Given Potassium Chloride (K-Dur -) 10 meq PO DAILY [facility] Last Admin: 04/21/16 10:05 Dose: 10 meq Solifenacin (Vesicare -) 5 mg PO DAILY [facility] Last Admin: 04/21/16 12:29 Dose: 5 mg Tamsulosin HCl (Flomax -) 0.4 mg PO DAILY@0830 [facility] Last Admin: 04/21/16 09:25 Dose: 0.4 mg - Objective Vital Signs: Vital Signs Temperature 97.6 F 04/21/16 10:02 Pulse Rate 89 04/21/16 10:02 Respiratory Rate 20 04/21/16 10:02 Blood Pressure 97/51 04/21/16 10:02 O2 Sat by Pulse Oximetry (%) 97 04/19/16 09:00 Constitutional: Yes: Cachectic, Other (AWAKE) Eyes: Yes: WNL HENT: Yes: WNL Neck: Yes: WNL Cardiovascular: Yes: Pulse Irregular, S1, S2 Respiratory: Yes: Diminished Gastrointestinal: Yes: Normal Bowel Sounds, Soft Extremities: Yes: WNL Edema: No Labs: CBC, BMP 04/21/16 06:40 04/21/16 06:40 INR, PTT INR 2.31 (0.82-1.09) H 04/21/16 06:40 Problem List - Problems (1) Rib pain on left side Code(s): R07.81 - PLEURODYNIA (2) Gastric adenocarcinoma Code(s): C16.9 - MALIGNANT NEOPLASM OF STOMACH, UNSPECIFIED Assessment/Plan Problem List - Problems (1) A-fib Code(s): I48.91 - UNSPECIFIED ATRIAL FIBRILLATION (2) Impaction of colon Code(s): K56.49 - OTHER IMPACTION OF INTESTINE (3) Pleural effusion Code(s): J90 - PLEURAL EFFUSION, NOT ELSEWHERE CLASSIFIED Assessment/Plan RIGHT PLEURAL EFUSION SMALL LEFT SIDED EFFUSION DOUBT PNEUMONIA R/O PANCREATIC CA H/O GASTRIC CA CHEST X-RAY GI W/U ABX PER ID DR LEIGH
--- NOTE | 2016-04-21 15:14 | PN ---
Progress Note, Physician History of Present Illness: more awake and alert had confusion electrolyte changes noted - Current Medication List Current Medications: Active Medications Acetaminophen (Tylenol -) 650 mg PO Q4H PRN PRN Reason: FEVER OR PAIN Last Admin: 04/21/16 12:29 Dose: 650 mg Benzocaine (Americaine Ointment -) 1 applic [place] PRN PRN PRN Reason: PAIN Docusate Sodium (Colace -) 100 mg PO TID [facility] Last Admin: 04/21/16 06:45 Dose: 100 mg Furosemide (Lasix -) 20 mg PO MoTuWeFr@1000 [facility] Last Admin: 04/20/16 09:32 Dose: 20 mg Haloperidol (Haldol -) 0.5 mg PO BID PRN PRN Reason: AGITATION Last Admin: 04/20/16 09:32 Dose: 0.5 mg Metformin HCl (Glucophage -) 500 mg PO DAILY@0700 [facility] Last Admin: 04/21/16 06:45 Dose: 500 mg Metoprolol Succinate (Toprol Xl -) 25 mg PO DAILY [facility] Potassium Chloride (K-Dur -) 10 meq PO DAILY [facility] Last Admin: 04/21/16 10:05 Dose: 10 meq Solifenacin (Vesicare -) 5 mg PO DAILY [facility] Last Admin: 04/21/16 12:29 Dose: 5 mg Tamsulosin HCl (Flomax -) 0.4 mg PO DAILY@0830 [facility] Last Admin: 04/21/16 09:25 Dose: 0.4 mg - Objective Vital Signs: Vital Signs Temperature 97.4 F L 04/21/16 14:25 Pulse Rate 100 H 04/21/16 14:25 Respiratory Rate 16 04/21/16 14:25 Blood Pressure 90/56 04/21/16 14:25 O2 Sat by Pulse Oximetry (%) 97 04/19/16 09:00 Constitutional: Yes: No Distress, Calm Cardiovascular: Yes: Regular Rate and Rhythm Respiratory: Yes: Poor Air Entry, Rhonchi Gastrointestinal: Yes: Normal Bowel Sounds, Soft Musculoskeletal: Yes: Other Extremities: Yes: Other Neurological: Yes: Alert, Confusion Labs: CBC, BMP 04/21/16 06:40 04/21/16 06:40 INR, PTT INR 2.31 (0.82-1.09) H 04/21/16 06:40 Assessment/Plan Problem List - Problems (1) Impaction of colon Code(s): K56.49 - OTHER IMPACTION OF INTESTINE (2) A-fib Code(s): I48.91 - UNSPECIFIED ATRIAL FIBRILLATION pneumonia abd pain confusion pleural effusion plan will stop abx await for inr to come down
[2016-04-21] MEDS: METOPROLOL SUCCINATE 25 MG TAB.SR.24H (FP) PO SCH (17:00)
[2016-04-22] MEDS: DOCUSATE SODIUM 100 MG CAPSULE (FP) PO SCH ×3 (06:18→21:28)
[2016-04-22] MEDS: metFORMIN HCL 500 MG TABLET (FP) PO SCH (06:18)
[2016-04-22 07:05] LABS: MCH 26.3 pg (25.7-33.7); MCHC 32.3 g/dl (32.0-35.9); MEAN CELL VOLUME 81.5 fl (80-96); PLATELET COUNT 243 K/MM3 (134-434); RDW 20.3 % (11.9-15.9); WHITE BLOOD COUNT 8.2 K/mm3 (4.0-10.0)
[2016-04-22 07:27] LABS: INR 2.01 (0.82-1.09); PROTHROMBIN TIME (PATIENT) 22.4 SEC (9.98-11.88)
[2016-04-22 07:35] LABS: CALCIUM 8.8 mg/dL (8.5-10.1); CREATININE 0.9 mg/dL (0.7-1.3)
[2016-04-22 08:16] LABS: NEUTROPHILS 77.2 % (42.8-82.8)
[2016-04-22 08:22] LABS: BASOPHIL 2.4 % (0-2.0); EOSINOPHIL 2.7 % (0-4.5)
[2016-04-22 10:08] LABS: ACANTHOCYTES 2+; ANISOCYTOSIS 2+; BURR CELLS 4+; FRAGMENTED CELL 1+; HELMET CELLS 1+; MICROCYTOSIS 1+; OVALOCYTES 1+; POIKILOCYTOSIS 4+; SPHEROCYTE 1+; TARGET CELLS 2+
[2016-04-22] MEDS: FUROSEMIDE 20 MG TABLET (FP) PO SCH (10:21)
[2016-04-22] MEDS: TAMSULOSIN HCL 0.4 MG CAP.ER.24H (FP) PO SCH (10:21)
[2016-04-22] MEDS: POTASSIUM CHLORIDE TABS 10 MEQ TABLET.ER (FP) PO SCH (10:21)
[2016-04-22] MEDS: SOLIFENACIN SUCCINATE 5 MG TAB (FP) PO SCH (10:21)
[2016-04-22] MEDS: METOPROLOL SUCCINATE 25 MG TAB.SR.24H (FP) PO SCH (10:21)
--- NOTE | 2016-04-22 12:34 | PN ---
Progress Note, Physician - Current Medication List Current Medications: Active Medications Acetaminophen (Tylenol -) 650 mg PO Q4H PRN PRN Reason: FEVER OR PAIN Last Admin: 04/21/16 12:29 Dose: 650 mg Benzocaine (Americaine Ointment -) 1 applic [place] PRN PRN PRN Reason: PAIN Docusate Sodium (Colace -) 100 mg PO TID [facility] Last Admin: 04/22/16 06:18 Dose: 100 mg Furosemide (Lasix -) 20 mg PO MoTuWeFr@1000 [facility] Last Admin: 04/22/16 10:21 Dose: 20 mg Haloperidol (Haldol -) 0.5 mg PO BID PRN PRN Reason: AGITATION Last Admin: 04/20/16 09:32 Dose: 0.5 mg Metformin HCl (Glucophage -) 500 mg PO DAILY@0700 [facility] Last Admin: 04/22/16 06:18 Dose: 500 mg Metoprolol Succinate (Toprol Xl -) 25 mg PO DAILY [facility] Last Admin: 04/22/16 10:21 Dose: 25 mg Potassium Chloride (K-Dur -) 10 meq PO DAILY [facility] Last Admin: 04/22/16 10:21 Dose: 10 meq Solifenacin (Vesicare -) 5 mg PO DAILY [facility] Last Admin: 04/22/16 10:21 Dose: 5 mg Tamsulosin HCl (Flomax -) 0.4 mg PO DAILY@0830 [facility] Last Admin: 04/22/16 10:21 Dose: 0.4 mg - Objective Vital Signs: Vital Signs Temperature 97.8 F 04/22/16 05:42 Pulse Rate 97 H 04/22/16 05:42 Respiratory Rate 20 04/22/16 05:42 Blood Pressure 115/82 04/22/16 05:42 O2 Sat by Pulse Oximetry (%) 96 04/21/16 11:00 Labs: CBC, BMP 04/22/16 06:35 04/22/16 06:35 INR, PTT INR 2.01 (0.82-1.09) H 04/22/16 06:35 Problem List - Problems (1) Impaction of colon Code(s): K56.49 - OTHER IMPACTION OF INTESTINE (2) A-fib Code(s): I48.91 - UNSPECIFIED ATRIAL FIBRILLATION Assessment/Plan skin tears noted tx dressing as ordered when inr less 2 give luvonox 40 q 12 stop 12 hrs prior to proceder cont tx as is get cxr today again
--- NOTE | 2016-04-22 12:57 | PN ---
Progress Note, Physician History of Present Illness: pulmonary alert,still confused,-resp distress - Current Medication List Current Medications: Active Medications Acetaminophen (Tylenol -) 650 mg PO Q4H PRN PRN Reason: FEVER OR PAIN Last Admin: 04/21/16 12:29 Dose: 650 mg Benzocaine (Americaine Ointment -) 1 applic [place] PRN PRN PRN Reason: PAIN Docusate Sodium (Colace -) 100 mg PO TID [facility] Last Admin: 04/22/16 06:18 Dose: 100 mg Furosemide (Lasix -) 20 mg PO MoTuWeFr@1000 [facility] Last Admin: 04/22/16 10:21 Dose: 20 mg Haloperidol (Haldol -) 0.5 mg PO BID PRN PRN Reason: AGITATION Last Admin: 04/20/16 09:32 Dose: 0.5 mg Metformin HCl (Glucophage -) 500 mg PO DAILY@0700 [facility] Last Admin: 04/22/16 06:18 Dose: 500 mg Metoprolol Succinate (Toprol Xl -) 25 mg PO DAILY [facility] Last Admin: 04/22/16 10:21 Dose: 25 mg Potassium Chloride (K-Dur -) 10 meq PO DAILY [facility] Last Admin: 04/22/16 10:21 Dose: 10 meq Solifenacin (Vesicare -) 5 mg PO DAILY [facility] Last Admin: 04/22/16 10:21 Dose: 5 mg Tamsulosin HCl (Flomax -) 0.4 mg PO DAILY@0830 [facility] Last Admin: 04/22/16 10:21 Dose: 0.4 mg - Objective Vital Signs: Vital Signs Temperature 97.8 F 04/22/16 05:42 Pulse Rate 97 H 04/22/16 05:42 Respiratory Rate 20 04/22/16 05:42 Blood Pressure 115/82 04/22/16 05:42 O2 Sat by Pulse Oximetry (%) 96 04/21/16 11:00 Constitutional: Yes: Calm, Thin Eyes: Yes: WNL HENT: Yes: WNL Neck: Yes: Supple Cardiovascular: Yes: Pulse Irregular, S1, S2 Respiratory: Yes: Diminished Gastrointestinal: Yes: WNL Extremities: Yes: WNL Edema: No Labs: CBC, BMP 04/22/16 06:35 04/22/16 06:35 INR, PTT INR 2.01 (0.82-1.09) H 04/22/16 06:35 Problem List - Problems (1) Rib pain on left side Code(s): R07.81 - PLEURODYNIA (2) 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
[2016-04-22] MEDS: BACITRACIN 30 GM TUBE TOPICAL OINTMENT TP SCH (15:29)
--- NOTE | 2016-04-22 16:11 | PN ---
Progress Note, Physician History of Present Illness: continues to be confused otherwise no new issues - Current Medication List Current Medications: Active Medications Acetaminophen (Tylenol -) 650 mg PO Q4H PRN PRN Reason: FEVER OR PAIN Last Admin: 04/21/16 12:29 Dose: 650 mg Bacitracin (Bacitracin -) 1 applic TP Q2D@1000 [facility] Last Admin: 04/22/16 15:29 Dose: Not Given Benzocaine (Americaine Ointment -) 1 applic [place] PRN PRN PRN Reason: PAIN Docusate Sodium (Colace -) 100 mg PO TID [facility] Last Admin: 04/22/16 15:28 Dose: 100 mg Furosemide (Lasix -) 20 mg PO MoTuWeFr@1000 [facility] Last Admin: 04/22/16 10:21 Dose: 20 mg Haloperidol (Haldol -) 0.5 mg PO BID PRN PRN Reason: AGITATION Last Admin: 04/20/16 09:32 Dose: 0.5 mg Metformin HCl (Glucophage -) 500 mg PO DAILY@0700 [facility] Last Admin: 04/22/16 06:18 Dose: 500 mg Metoprolol Succinate (Toprol Xl -) 25 mg PO DAILY [facility] Last Admin: 04/22/16 10:21 Dose: 25 mg Potassium Chloride (K-Dur -) 10 meq PO DAILY [facility] Last Admin: 04/22/16 10:21 Dose: 10 meq Solifenacin (Vesicare -) 5 mg PO DAILY [facility] Last Admin: 04/22/16 10:21 Dose: 5 mg Tamsulosin HCl (Flomax -) 0.4 mg PO DAILY@0830 [facility] Last Admin: 04/22/16 10:21 Dose: 0.4 mg - Objective Vital Signs: Vital Signs Temperature 97.3 F L 04/22/16 14:06 Pulse Rate 80 04/22/16 14:06 Respiratory Rate 20 04/22/16 14:06 Blood Pressure 137/76 04/22/16 14:06 O2 Sat by Pulse Oximetry (%) 96 04/22/16 10:00 Constitutional: Yes: No Distress, Other Neck: Yes: Supple Cardiovascular: Yes: Regular Rate and Rhythm Respiratory: Yes: Poor Air Entry Gastrointestinal: Yes: Normal Bowel Sounds, Soft Labs: CBC, BMP 04/22/16 06:35 04/22/16 06:35 INR, PTT INR 2.01 (0.82-1.09) H 04/22/16 06:35 Assessment/Plan Problem List - Problems (1) Impaction of colon Code(s): K56.49 - OTHER IMPACTION OF INTESTINE (2) A-fib Code(s): I48.91 - UNSPECIFIED ATRIAL FIBRILLATION pneumonia abd pain confusion pleural effusion plan stable off of abx continue supportive treatment
--- NOTE | 2016-04-22 16:40 | PN ---
Progress Note (short form) - Note Progress Note: Called by Dr. Dr. López from thoracic surgery to follow up on this patient. Seen as a consult two days ago. Vital Signs Period Temp Pulse Resp BP Sys/Ho Pulse Ox Last 24 Hr 97.2 F-98.0 F 80-99 20-20 110-167/60-89 96 PE: GEN: Alert but not oriented. NAD LUNGS: CTA b/l but diminished, no dyspnea INR, PTT INR 2.01 (0.82-1.09) H 04/22/16 06:35 Problem List - Problems (1) Gastric adenocarcinoma Assessment/Plan: pt with right effusion, called for possible thoracentesis Case D?w thoracic surgeon and will plan for thorcentesis in IR when INR imporved , the patient was getting coumadin. Plan as per medicine is to begin lovenox when INR <2 CXR ordered to eval for worsening effusion, although the patient remains comfortable and in NAD with his breathing currrently Case D/W Dr. López Code(s): C16.9 - MALIGNANT NEOPLASM OF STOMACH, UNSPECIFIED
--- NOTE | 2016-04-22 18:18 | PN ---
Progress Note (short form) - Note Progress Note: CC: afib S: constant lower abdominal pain, and pain at right hand wound. Per nursing, eating small amounts, but not drinking much. + mild confusion. no cp, palps, dizziness sob. Current Medications Acetaminophen (Tylenol -) 650 mg PO Q4H PRN PRN Reason: FEVER OR PAIN Last Admin: 04/21/16 12:29 Dose: 650 mg Bacitracin (Bacitracin -) 1 applic TP Q2D@1000 [facility] Last Admin: 04/22/16 15:29 Dose: Not Given Benzocaine (Americaine Ointment -) 1 applic [place] PRN PRN PRN Reason: PAIN Docusate Sodium (Colace -) 100 mg PO TID [facility] Last Admin: 04/22/16 15:28 Dose: 100 mg Furosemide (Lasix -) 20 mg PO MoTuWeFr@1000 [facility] Last Admin: 04/22/16 10:21 Dose: 20 mg Haloperidol (Haldol -) 0.5 mg PO BID PRN PRN Reason: AGITATION Last Admin: 04/20/16 09:32 Dose: 0.5 mg Metformin HCl (Glucophage -) 500 mg PO DAILY@0700 [facility] Last Admin: 04/22/16 06:18 Dose: 500 mg Metoprolol Succinate (Toprol Xl -) 25 mg PO DAILY [facility] Last Admin: 04/22/16 10:21 Dose: 25 mg Potassium Chloride (K-Dur -) 10 meq PO DAILY [facility] Last Admin: 04/22/16 10:21 Dose: 10 meq Solifenacin (Vesicare -) 5 mg PO DAILY [facility] Last Admin: 04/22/16 10:21 Dose: 5 mg Tamsulosin HCl (Flomax -) 0.4 mg PO DAILY@0830 [facility] Last Admin: 04/22/16 10:21 Dose: 0.4 mg Vital Signs - 24 hr 04/21/16 04/21/16 04/22/16 18:15 20:07 02:00 Temperature 97.7 F 98.0 F Pulse Rate 88 99 H 90 Respiratory 20 20 20 Rate Blood Pressure 111/61 131/76 139/85 O2 Sat by Pulse Oximetry (%) 04/22/16 04/22/16 04/22/16 05:42 10:00 14:06 Temperature 97.8 F 97.2 F L 97.3 F L Pulse Rate 97 H 94 H 80 Respiratory 20 20 20 Rate Blood Pressure 115/82 167/89 137/76 O2 Sat by Pulse 96 Oximetry (%) Intake & Output 04/20/16 04/21/16 04/22/16 04/23/16 07:59 07:59 07:59 07:59 Intake Total 150 250 800 300 Balance 150 250 800 300 Constitutional: Yes: No Distress, Calm Eyes: Yes: WNL HENT: Yes: WNL Neck: Yes: WNL Cardiovascular: Yes: Pulse Irregular Respiratory: Yes: WNL Musculoskeletal: Yes: WNL Extremities: Yes: WNL Edema: No Diffuse bruising throughout skin Labs: CBC, BMP 04/22/16 06:35 04/22/16 06:35 Laboratory Tests 04/22/16 06:35 INR 2.01 H Assessment/Plan AFib -Reasonable rate controlled on Metoprolol at 25 mg daily, continue -Therapeutic INR despite having held coumadin for possible thora. Would check lfts. -Would defer overall anticoagulation candidacy decision to pcp. -Can bridge once INR < 2.0 -Allergy to ASA Pleural effusion - Mgm't per pmd/pulm/surg - improving s/p QOD lasix dosing, but patient developing worsened hypernatremia and with poor po intake. Would stop lasix and replace with less potent HCTZ 25 mg/day. Monitor volume status and for reaccumulation of pleural effusion. HTN -labile. Con't metoprolol. HCTZ as mentioned. abdominal pain and h/o gastric cancer - with concern for hepatobiliary abnormality. per pmd, GI>
[2016-04-22] MEDS: HALOPERIDOL 0.5 MG TABLET PO PRN (21:29)
[2016-04-23] MEDS: metFORMIN HCL 500 MG TABLET (FP) PO SCH (07:00)
[2016-04-23] MEDS: DOCUSATE SODIUM 100 MG CAPSULE (FP) PO SCH ×3 (07:00→21:57)
[2016-04-23 08:16] LABS: INR 1.7 (0.82-1.09); PROTHROMBIN TIME (PATIENT) 18.9 SEC (9.98-11.88)
[2016-04-23 08:26] LABS: CALCIUM 9.1 mg/dL (8.5-10.1); CREATININE 0.8 mg/dL (0.7-1.3)
[2016-04-23 08:30] LABS: ALBUMIN 2.5 g/dl (3.4-5.0); BILIRUBIN,DIRECT 0.2 mg/dL (0.0-0.2); BILIRUBIN,TOTAL 0.6 mg/dL (0.2-1.0)
[2016-04-23] MEDS: TAMSULOSIN HCL 0.4 MG CAP.ER.24H (FP) PO SCH (09:21)
[2016-04-23] MEDS: POTASSIUM CHLORIDE TABS 10 MEQ TABLET.ER (FP) PO SCH (09:57)
[2016-04-23] MEDS: SOLIFENACIN SUCCINATE 5 MG TAB (FP) PO SCH (09:57)
[2016-04-23] MEDS: METOPROLOL SUCCINATE 25 MG TAB.SR.24H (FP) PO SCH (09:57)
[2016-04-23] MEDS: HYDROCHLOROTHIAZIDE 25 MG TABLET (FP) PO SCH (09:57)
[2016-04-23] MEDS: ACETAMINOPHEN 325 MG TABLET (FP) PO PRN (11:49)
--- NOTE | 2016-04-23 12:12 | PN ---
Progress Note, Physician History of Present Illness: PULMONARY AWAKE,VERY WEAK C/O GENERALIZED PAINS - Current Medication List Current Medications: Active Medications Acetaminophen (Tylenol -) 650 mg PO Q4H PRN PRN Reason: FEVER OR PAIN Last Admin: 04/23/16 11:49 Dose: 650 mg Apixaban (Eliquis -) 2.5 mg PO BID [facility] Bacitracin (Bacitracin -) 1 applic TP Q2D@1000 [facility] Last Admin: 04/22/16 15:29 Dose: Not Given Benzocaine (Americaine Ointment -) 1 applic [place] PRN PRN PRN Reason: PAIN Docusate Sodium (Colace -) 100 mg PO TID [facility] Last Admin: 04/23/16 07:00 Dose: 100 mg Haloperidol (Haldol -) 0.5 mg PO BID PRN PRN Reason: AGITATION Last Admin: 04/22/16 21:29 Dose: 0.5 mg Hydrochlorothiazide (Hctz -) 25 mg PO DAILY [facility] Last Admin: 04/23/16 09:57 Dose: 25 mg Metformin HCl (Glucophage -) 500 mg PO DAILY@0700 [facility] Last Admin: 04/23/16 07:00 Dose: 500 mg Metoprolol Succinate (Toprol Xl -) 25 mg PO DAILY [facility] Last Admin: 04/23/16 09:57 Dose: 25 mg Potassium Chloride (K-Dur -) 10 meq PO DAILY [facility] Last Admin: 04/23/16 09:57 Dose: 10 meq Solifenacin (Vesicare -) 5 mg PO DAILY [facility] Last Admin: 04/23/16 09:57 Dose: 5 mg Tamsulosin HCl (Flomax -) 0.4 mg PO DAILY@0830 [facility] Last Admin: 04/23/16 09:21 Dose: 0.4 mg - Objective Vital Signs: Vital Signs Temperature 98.2 F 04/22/16 18:00 Pulse Rate 92 H 04/23/16 09:35 Respiratory Rate 20 04/23/16 09:35 Blood Pressure 129/73 04/23/16 09:35 O2 Sat by Pulse Oximetry (%) 95 04/22/16 21:00 Constitutional: Yes: Calm, Cachectic Eyes: Yes: WNL HENT: Yes: WNL Neck: Yes: WNL Cardiovascular: Yes: Pulse Irregular, S1, S2 Respiratory: Yes: Diminished Gastrointestinal: Yes: Normal Bowel Sounds, Soft Extremities: Yes: WNL Edema: No Labs: CBC, BMP 04/22/16 06:35 04/23/16 06:30 INR, PTT INR 1.70 (0.82-1.09) H 04/23/16 06:30 Problem List - Problems (1) Rib pain on left side Code(s): R07.81 - PLEURODYNIA (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
--- NOTE | 2016-04-23 12:42 | PN ---
Progress Note, Physician Chief Complaint: pt very confused feeding him no problem swallowing vss cxr w less plm fliud cacelled thorocetisis spoke dr reeves to [facility] neuro to adjust haldol vs ativan and to ro cva doubt needs h protdiet d/c warfarin and placed on low dose eliqis spoke to cardio?agrees for now blader scan to see if abd pain bladder - Current Medication List Current Medications: Active Medications Acetaminophen (Tylenol -) 650 mg PO Q4H PRN PRN Reason: FEVER OR PAIN Last Admin: 04/23/16 11:49 Dose: 650 mg Apixaban (Eliquis -) 2.5 mg PO BID [facility] Bacitracin (Bacitracin -) 1 applic TP Q2D@1000 [facility] Last Admin: 04/22/16 15:29 Dose: Not Given Benzocaine (Americaine Ointment -) 1 applic [place] PRN PRN PRN Reason: PAIN Docusate Sodium (Colace -) 100 mg PO TID [facility] Last Admin: 04/23/16 07:00 Dose: 100 mg Haloperidol (Haldol -) 0.5 mg PO BID PRN PRN Reason: AGITATION Last Admin: 04/22/16 21:29 Dose: 0.5 mg Hydrochlorothiazide (Hctz -) 25 mg PO DAILY [facility] Last Admin: 04/23/16 09:57 Dose: 25 mg Metformin HCl (Glucophage -) 500 mg PO DAILY@0700 [facility] Last Admin: 04/23/16 07:00 Dose: 500 mg Metoprolol Succinate (Toprol Xl -) 25 mg PO DAILY [facility] Last Admin: 04/23/16 09:57 Dose: 25 mg Potassium Chloride (K-Dur -) 10 meq PO DAILY [facility] Last Admin: 04/23/16 09:57 Dose: 10 meq Solifenacin (Vesicare -) 5 mg PO DAILY [facility] Last Admin: 04/23/16 09:57 Dose: 5 mg Tamsulosin HCl (Flomax -) 0.4 mg PO DAILY@0830 [facility] Last Admin: 04/23/16 09:21 Dose: 0.4 mg - Objective Vital Signs: Vital Signs Temperature 98.2 F 04/22/16 18:00 Pulse Rate 92 H 04/23/16 09:35 Respiratory Rate 20 04/23/16 09:35 Blood Pressure 129/73 04/23/16 09:35 O2 Sat by Pulse Oximetry (%) 95 04/22/16 21:00 Labs: CBC, BMP 04/22/16 06:35 04/23/16 06:30 INR, PTT INR 1.70 (0.82-1.09) H 04/23/16 06:30 Problem List - Problems (1) Impaction of colon Code(s): K56.49 - OTHER IMPACTION OF INTESTINE (2) A-fib Code(s): I48.91 - UNSPECIFIED ATRIAL FIBRILLATION
--- NOTE | 2016-04-23 13:21 | CON.NEP ---
Consult Referred by:: Tung Amador MD Reason for Consultation:: hypernatremia - History of Present Illness History of Present Illness: This is an 86 year old man with history of HTN, DM, AFib on anticoagulation, s/ p gastrectomy for remote gastric ca. He was admitted s/p fall. He has hypernatremia and has a right pleural effusion. So nephrology is consulted. 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) Endocrine: Yes: Diabetes Mellitus Dermatology: Yes: Other (easy brusabiliy) - Alcohol/Substance Use Hx Alcohol Use: No - Smoking History Smoking history: Never smoked Have you smoked in the past 12 months: No - Social History ADL: Family Assistance History of Recent Travel: No Home Medications - Allergies Allergies/Adverse Reactions: Allergies Allergy/AdvReac Type Severity Reaction Status Date / Time aspirin Allergy Rash Verified 04/15/16 10:47 - Home Medications Home Medications: Ambulatory Orders Metoprolol "Xl" (Sustain Act) [Toprol Xl] 50 mg PO DAILY 08/09/11 Warfarin Na [Coumadin] mg PO DAILY@1800 08/09/11 Metformin HCl 500 mg PO DAILY 04/11/16 Tramadol HCl 50 mg PO TID #21 tablet MDD 3 04/11/16 Review of Systems Unable to obtain ROS, reason: dementia Nephrology Consult - Height Height: 5 ft 6 in - Weight Weight: 150 lb - BMI Body Mass Index (BMI): 24.2 - Lab Results CBC,BMP: CBC, BMP 04/22/16 06:35 04/23/16 06:30 Anion Gap: Anion Gap Anion Gap 11 (8-16) 04/23/16 06:30 - Imaging Chest X-ray: Report Reviewed (right pleural effusion) - Physical Examination Vital Signs: Vital Signs Temperature 98.2 F 04/22/16 18:00 Pulse Rate 92 H 04/23/16 09:35 Respiratory Rate 20 04/23/16 09:35 Blood Pressure 129/73 04/23/16 09:35 O2 Sat by Pulse Oximetry (%) 95 04/22/16 21:00 Constitutional: Yes: Thin Eyes: Yes: Other (bitemporal wasting) HENT: Yes: Other ( ecchymotic areas) Neck: Yes: WNL Cardiovascular: Yes: Pulse Irregular Respiratory: Yes: Regular, Diminished Gastrointestinal: Yes: Normal Bowel Sounds. No: Palpable Mass Renal/: Yes: WNL Musculoskeletal: Yes: WNL Extremities: Yes: WNL Edema: No Peripheral Pulses WNL: Yes Integumentary: Yes: Pressure Ulcer, Other (surgical abdominal scar) Wound/Incision: Yes: Clean/Dry Neurological: Yes: WNL Assessment/Plan IMPRESSION hypernatremia likely due to diuresis and decreased po intake not sure if patient is fluid overloaded abdominal pain maybe from constipation PLAN will start a small amount od d5w which should be less likely to cause chf than saline ok to use hctz though bp may drop and sodium should drop as well MV
[2016-04-23] MEDS ORDERED: DEXTROSE 5%-WATER - 1,000 ML IV ONE (13:30)
[2016-04-23] MEDS ORDERED: PT OWN MED DRAWER 7, Y5N ONE (14:38)
--- NOTE | 2016-04-23 15:11 | PN ---
GI Progress Note Subjective: has spontaneous movement, abdominal pain resolved after inserting cleveland, denies abdominal pain - Objective Vital Signs: Vital Signs Temperature 97.8 F 04/23/16 12:00 Pulse Rate 92 H 04/23/16 09:35 Respiratory Rate 20 04/23/16 09:35 Blood Pressure 129/73 04/23/16 09:35 O2 Sat by Pulse Oximetry (%) 95 04/22/16 21:00 Constitutional: Well Nourished Eyes: Yes: Conjunctiva Clear HENT: Yes: Atraumatic Neck: Yes: Trachea Midline Cardiovascular: Yes: Regular Rate and Rhythm Respiratory: Yes: CTA Bilaterally ...Palpate: Yes: Soft. No: Firm/Rigid, Guarding, Hepatomegaly, Mass, Pulsatile Mass, Splenomegaly, Tenderness Labs: CBC, BMP 04/22/16 06:35 04/23/16 06:30 INR, PTT INR 1.70 (0.82-1.09) H 04/23/16 06:30 Problem List - Problems (1) Abdominal pain Assessment/Plan: R> secondry to urinary retention Code(s): R10.9 - UNSPECIFIED ABDOMINAL PAIN (2) Common bile duct dilatation Assessment/Plan: R>patient poor candidate for further w/u until metal status and respiratory status are stable Code(s): K83.8 - OTHER SPECIFIED DISEASES OF BILIARY TRACT
--- NOTE | 2016-04-23 15:53 | PN ---
Progress Note, Physician History of Present Illness: grossly confused events noted - Current Medication List Current Medications: Active Medications Acetaminophen (Tylenol -) 650 mg PO Q4H PRN PRN Reason: FEVER OR PAIN Last Admin: 04/23/16 11:49 Dose: 650 mg Apixaban (Eliquis -) 2.5 mg PO BID [facility] Bacitracin (Bacitracin -) 1 applic TP Q2D@1000 [facility] Last Admin: 04/22/16 15:29 Dose: Not Given Benzocaine (Americaine Ointment -) 1 applic [place] PRN PRN PRN Reason: PAIN Docusate Sodium (Colace -) 100 mg PO TID [facility] Last Admin: 04/23/16 07:00 Dose: 100 mg Haloperidol (Haldol -) 0.5 mg PO BID PRN PRN Reason: AGITATION Last Admin: 04/22/16 21:29 Dose: 0.5 mg Hydrochlorothiazide (Hctz -) 25 mg PO DAILY [facility] Last Admin: 04/23/16 09:57 Dose: 25 mg Dextrose (D5w -) 1,000 mls @ 42 mls/hr IV ASDIR ONE Stop: 04/24/16 13:18 Last Admin: 04/23/16 15:11 Dose: 42 mls/hr Metformin HCl (Glucophage -) 500 mg PO DAILY@0700 [facility] Last Admin: 04/23/16 07:00 Dose: 500 mg Metoprolol Succinate (Toprol Xl -) 25 mg PO DAILY [facility] Last Admin: 04/23/16 09:57 Dose: 25 mg Potassium Chloride (K-Dur -) 10 meq PO DAILY [facility] Last Admin: 04/23/16 09:57 Dose: 10 meq Solifenacin (Vesicare -) 5 mg PO DAILY [facility] Last Admin: 04/23/16 09:57 Dose: 5 mg Tamsulosin HCl (Flomax -) 0.4 mg PO DAILY@0830 [facility] Last Admin: 04/23/16 09:21 Dose: 0.4 mg - Objective Vital Signs: Vital Signs Temperature 98.4 F 04/23/16 14:30 Pulse Rate 79 04/23/16 14:30 Respiratory Rate 22 04/23/16 14:30 Blood Pressure 148/58 04/23/16 14:30 O2 Sat by Pulse Oximetry (%) 95 04/22/16 21:00 Constitutional: Yes: Moderate Distress, Other HENT: Yes: Atraumatic Neck: Yes: Supple Respiratory: Yes: Poor Air Entry Gastrointestinal: Yes: Normal Bowel Sounds, Soft Musculoskeletal: Yes: Other Extremities: Yes: Other Neurological: Yes: Alert, Confusion Labs: CBC, BMP 04/22/16 06:35 04/23/16 06:30 INR, PTT INR 1.70 (0.82-1.09) H 04/23/16 06:30 Assessment/Plan Problem List - Problems (1) Impaction of colon Code(s): K56.49 - OTHER IMPACTION OF INTESTINE (2) A-fib Code(s): I48.91 - UNSPECIFIED ATRIAL FIBRILLATION pneumonia abd pain confusion pleural effusion dehydration plan stable off of abx grossly confused hydration as per renal close monitoring
[2016-04-23 15:59] LABS: ARTERIAL BLD GAS O2 SATURATION 99.3 % (90-98.9); ARTERIAL BLOOD GAS BASE EXCESS 2.2 meq/l (-2-2); ARTERIAL BLOOD GAS HCO3 24.4 meq/L (22-26)
[2016-04-23 16:00] LABS: ALLENS TEST POSITIVE
[2016-04-23 16:01] LABS: ART PUNCT SITE RIGHT RADIAL; ARTERIAL BLOOD GAS pH 7.51 (7.35-7.45); LPM/O2% 21%; PT. ON O2? NO; TYPE OF O2 ROOM AIR
--- NOTE | 2016-04-23 17:32 | CON.NEURO ---
Consult Consult Specialty:: Neurology Referred by:: Tung haile Reason for Consultation:: Altered Mental Status - History of Present Illness Chief Complaint: Altered Mental Status History of Present Illness: Patient admitted a couple of weeks ago with complaints of abdominal pain and suspicion of pneumonia. As per son, that patient has had some altered mentation over the last 6 months or so, with some hallucinations, and sundowning and confusion, but walked into the hospital conversant. He became more confused over the past week and over the last 24 hours has become totally incoherent and doesn't seem to recognize his son or be able to carry on a coherent conversation. He had a cleveland catheter placed which seemed to eliminate some of his abdominal pain, but now he is complaining of pain again. He then says that there is pain throughout his body. His son notes that he has been having some tremulous movements and balling up his hand meaninglessly and grasping at the air for the last 24 hours and has never done that before. 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 cancer stomach and cholocystectomy) Endocrine: Yes: Diabetes Mellitus Dermatology: Yes: Other (easy brusabiliy) - Alcohol/Substance Use Hx Alcohol Use: No - Smoking History Smoking history: Never smoked Have you smoked in the past 12 months: No - Social History ADL: Family Assistance History of Recent Travel: No Home Medications - Allergies Allergies/Adverse Reactions: Allergies Allergy/AdvReac Type Severity Reaction Status Date / Time aspirin Allergy Rash Verified 04/15/16 10:47 - Home Medications Home Medications: Ambulatory Orders Metoprolol "Xl" (Sustain Act) [Toprol Xl] 50 mg PO DAILY 08/09/11 Warfarin Na [Coumadin] mg PO DAILY@1800 08/09/11 Metformin HCl 500 mg PO DAILY 04/11/16 Tramadol HCl 50 mg PO TID #21 tablet MDD 3 04/11/16 Physical Exam-Neuro Vital Signs: Vital Signs Temperature 98.4 F 04/23/16 14:30 Pulse Rate 79 04/23/16 14:30 Respiratory Rate 22 04/23/16 14:30 Blood Pressure 148/58 04/23/16 14:30 O2 Sat by Pulse Oximetry (%) 95 04/22/16 21:00 Constitutional: Yes: Thin, Other (aggitated, grasping at the air at times) Labs: CBC, BMP 04/22/16 06:35 04/23/16 06:30 INR, PTT INR 1.70 (0.82-1.09) H 04/23/16 06:30 - Neuro Exam Level Of Consciousness: Yes: Oriented to Person (inattentive) Eyes: Yes: CLARE Cranial Nerves II-XII Intact: Yes DTR's: 0 Left Achilles, 0 Right Achilles, 1+ Left Bicep, 1+ Right Bicep Babinski: Absent Response to light touch: Normal Imaging - Results Cat Scan: Pending Problem List - Problems (1) Encephalopathy Code(s): G93.40 - ENCEPHALOPATHY, UNSPECIFIED (2) Encephalopathy due to metabolic factor or toxin Assessment/Plan: Most likely. Though he appears to have a non-focal exam, he should still have a CT head to r/o stroke in this setting of afib. I think that this is more likely an encephalopathy due to toxic/metabolic factors. I'd start with checking ammonia level. If that and CT head are negative, may need to broaden search. Code(s): [id number] - Assessment/Plan Check CT head, ammonia level, and sedate with caution if needed for safety.
[2016-04-23] MEDS ORDERED: WARFARIN NA 1 MG TABLET (FP) PO SCH (18:00)
--- NOTE | 2016-04-23 20:32 | CONSULT ---
Consult Consult Specialty:: PULMONARY / CRITICAL CARE Referred by:: Dr Amador Reason for Consultation:: altered mental status - History of Present Illness Chief Complaint: confusion History of Present Illness: 86 y/o male with multiple medical problems including HTN, DM2, AF (on AC), prior gastric cancer, sacral decub, was admitted 8 days ago with pneumonia and pleural effusion. He was managed on the floor, thoracic was consulted for a thora, but wasn't done due to high risk for bleed given anticoagulation. He has had progressive altered mental status with agitated delirium while on the floor. A head CT was done which by report was negative, neurology was consulted and he was transferred to the ICU for closer monitoring. 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 cancer stomach and cholocystectomy) Endocrine: Yes: Diabetes Mellitus Dermatology: Yes: Other (easy brusabiliy) - Past Surgical History Additional Surgical History: ?gastrectomy - Alcohol/Substance Use Hx Alcohol Use: No - Smoking History Smoking history: Never smoked Have you smoked in the past 12 months: No - Social History ADL: Family Assistance History of Recent Travel: No Home Medications - Allergies Allergies/Adverse Reactions: Allergies Allergy/AdvReac Type Severity Reaction Status Date / Time aspirin Allergy Rash Verified 04/15/16 10:47 - Home Medications Home Medications: Ambulatory Orders Metoprolol "Xl" (Sustain Act) [Toprol Xl] 50 mg PO DAILY 08/09/11 Warfarin Na [Coumadin] mg PO DAILY@1800 08/09/11 Metformin HCl 500 mg PO DAILY 04/11/16 Tramadol HCl 50 mg PO TID #21 tablet MDD 3 04/11/16 Review of Systems Unable to obtain ROS, reason: altered mental status Physical Exam Vital Signs: Vital Signs Temperature 99.3 F 04/23/16 17:45 Pulse Rate 93 H 04/23/16 20:11 Respiratory Rate 04/23/16 20:11 Blood Pressure 121/70 04/23/16 20:11 O2 Sat by Pulse Oximetry (%) 97 04/23/16 11:05 Constitutional: Yes: Cachectic, Thin HENT: Yes: Other (bi-temporal wasting) Neck: Yes: Supple, Trachea Midline. No: Tenderness Cardiovascular: Yes: Pulse Irregular, S1, S2 Respiratory: Yes: CTA Bilaterally Gastrointestinal: Yes: Soft Extremities: Yes: Erythema Edema: No Peripheral Pulses WNL: Yes Neurological: Yes: Confusion, Dysarthria, Lethargy, Other (follows 1 step commands) Labs: CBC, BMP 04/22/16 06:35 04/23/16 06:30 Imaging - Results Chest X-ray: Report Reviewed, Image Reviewed Cat Scan: Pending, Image Reviewed Problem List - Problems (1) Lactic acidosis Code(s): E87.2 - ACIDOSIS (2) Encephalopathy due to metabolic factor or toxin Code(s): PNM3236 - (3) Delirium Code(s): R41.0 - DISORIENTATION, UNSPECIFIED (4) Hypernatremia Code(s): E87.0 - HYPEROSMOLALITY AND HYPERNATREMIA (5) A-fib Code(s): I48.91 - UNSPECIFIED ATRIAL FIBRILLATION (6) Malnutrition Code(s): E46 - UNSPECIFIED PROTEIN-CALORIE MALNUTRITION Assessment/Plan AMS and agitated delirium likely toxic metabolic encephalopathy Lactic acidosis Hypernatremia Severe malnutrition AF HTN -Hold Metformin - lactic acidosis, check fingersticks -Check UA and cultures to r/o infection, CXR is clear, no effusion -D5W for hyperNa -Frequent re-orientation, window room if possible, maximize sleep/wake cycle -Thiamine/Folate, probably needs some kind of gastric access if in line with goals of care -Rate control and AC per Cards Critically Ill 35" Thank you for this interesting consult Yonathan Leach Pulm/CC PRIVACY OFFICER
[2016-04-23] MEDS: APIXABAN 2.5 MG TABLET PO SCH (21:57)
[2016-04-23] MEDS ORDERED: ACETAMINOPHEN 1000 MG/100 ML VIAL (NON FORMULARY) IVPB ONE (23:35)
[2016-04-24 06:12] LABS: EOSINOPHIL 0.5 % (0-4.5); MCHC 32.2 g/dl (32.0-35.9); MEAN CELL VOLUME 80.8 fl (80-96); MEAN PLT VOLUME 9.2 fl (7.5-11.1); NEUTROPHILS 46.2 % (42.8-82.8); PLATELET COUNT 289 K/MM3 (134-434); RDW 20.4 % (11.9-15.9); WHITE BLOOD COUNT 7.8 K/mm3 (4.0-10.0)
[2016-04-24] MEDS: DOCUSATE SODIUM 100 MG CAPSULE (FP) PO SCH ×3 (06:26→22:15)
[2016-04-24 06:47] LABS: CALCIUM 8.8 mg/dL (8.5-10.1)
[2016-04-24 06:50] LABS: CREATININE 0.8 mg/dL (0.7-1.3)
[2016-04-24 07:36] LABS: ANISOCYTOSIS 1+; PLATELET COMMENT2 NO CLOTTING DETECTED; PLATELET COMMENT3 FEW GIANT PLTS; PLATELET ESTIMATE ADEQUATE (NORMAL); POIKILOCYTOSIS 1+; POLYCHROMASIA 1+
--- NOTE | 2016-04-24 08:28 | PN ---
Progress Note, Physician Chief Complaint: afib History of Present Illness: transferred to ICU overnight for acute agitated delirium. evaluated by critical care and found to have: AMS and agitated delirium likely toxic metabolic encephalopathy Lactic acidosis Hypernatremia Severe malnutrition AF HTN they held Metformin due to lactic acidosis, sent cultures and started D5W infusion for hyperNa he is currently mildly sedated, appears comfortable. - Current Medication List Current Medications: Active Medications Acetaminophen (Tylenol -) 650 mg PO Q4H PRN PRN Reason: FEVER OR PAIN Last Admin: 04/23/16 11:49 Dose: 650 mg Apixaban (Eliquis -) 2.5 mg PO BID [facility] Last Admin: 04/23/16 21:57 Dose: Not Given Bacitracin (Bacitracin -) 1 applic TP Q2D@1000 [facility] Last Admin: 04/22/16 15:29 Dose: Not Given Benzocaine (Americaine Ointment -) 1 applic [place] PRN PRN PRN Reason: PAIN Docusate Sodium (Colace -) 100 mg PO TID [facility] Last Admin: 04/24/16 06:26 Dose: Not Given Folic Acid (Folic Acid -) 1 mg PO DAILY [facility] Haloperidol (Haldol -) 0.5 mg PO BID PRN PRN Reason: AGITATION Last Admin: 04/22/16 21:29 Dose: 0.5 mg Hydrochlorothiazide (Hctz -) 25 mg PO DAILY [facility] Last Admin: 04/23/16 09:57 Dose: 25 mg Dextrose (D5w -) 1,000 mls @ 42 mls/hr IV ASDIR ONE Stop: 04/24/16 13:18 Last Admin: 04/23/16 15:11 Dose: 42 mls/hr Metoprolol Succinate (Toprol Xl -) 25 mg PO DAILY [facility] Last Admin: 04/23/16 09:57 Dose: 25 mg Potassium Chloride (K-Dur -) 10 meq PO DAILY [facility] Last Admin: 04/23/16 09:57 Dose: 10 meq Solifenacin (Vesicare -) 5 mg PO DAILY [facility] Last Admin: 04/23/16 09:57 Dose: 5 mg Tamsulosin HCl (Flomax -) 0.4 mg PO DAILY@0830 [facility] Last Admin: 04/23/16 09:21 Dose: 0.4 mg Thiamine HCl (Vitamin B1 Injection -) 200 mg IVPB DAILY [facility] - Objective Vital Signs: Vital Signs Temperature 98.8 F 04/24/16 06:23 Pulse Rate 76 04/24/16 06:23 Respiratory Rate 20 04/24/16 06:23 Blood Pressure 116/100 04/24/16 06:23 O2 Sat by Pulse Oximetry (%) 100 04/23/16 20:42 Constitutional: Yes: No Distress, Calm Cardiovascular: Yes: Pulse Irregular, S1, S2. No: Gallop, Murmur Respiratory: Yes: Regular, CTA Bilaterally (anteriorly). No: Accessory Muscle Use Extremities: No: Cold Edema: No Neurological: Yes: Lethargy. No: Seizure Psychiatric: No: Agitated Labs: CBC, BMP 04/24/16 05:00 04/24/16 05:00 INR, PTT INR 1.70 (0.82-1.09) H 04/23/16 06:30 Assessment/Plan AFib -Reasonable rate controlled on Metoprolol at 25 mg daily, continue -coumadin held initially with plans for diagnostic/therapeutic thoracentesis, per pulm--however rpt cxr looked improved after diuresis so no plans for thoracentesis at this time per dr haile -i d/w'd dr haile yesterday--he states at baseline pt lives with family member and is not highly confused or suffering from significant dementia; he also states pt has had no issues with poor balance or frequent falls or near-falls, and he does not believe pt is at hi risk for falls; he also states there is no known h/o pathological bleeding -therefore, based on this collateral information about pt's baseline functional status, it seems reasonable to plan to resume AC fdc for CVA prophylaxis given his CHADS-VASC score of 4. -reasonable to consider change of coumadin to eliquis, given the lower risk of ICH and overall bleeding with eliquis in trials--if today's listed bedscale wt is accurate (106 lbs), then pt's age and wt would indicate a dose of 2.5 bid ( though prior wt was 150 lbs???--need clarification of accurate wt)-- states he weighs 120 lbs at home which a dose of 2.5 bid is reasonable for -will also check office records, as it seems pt may be followed by dr mathis, in which case will d/w him as well -of course, the above plan may need to be reconsidered if pt's acute mental status changes do not reverse, which may increase falls risk when out of hospital -Allergy to ASA -would hold off on starting eliquis until CT report back and confirms no acute cerebral event confusion, encephalopathy -likely toxic-metabolic per neuro -allegedly no acute CVA on CT head overnight, per crit care notes--report pending Pleural effusion - per CXR 04/23 report, pleural fluid has resolved with diuresis - observe for sob and f/u serial cxr in future for reaccumulation - hold lasix (hypernatremia) hypernatremia: - likely secondary to lasix, now stopped - improving with D5W overnight--per crit care HTN -labile. Con't metoprolol. HCTZ as mentioned. DM -per pmd, crit care abdominal pain and h/o gastric cancer - with concern for hepatobiliary abnormality. per pmd, GI
[2016-04-24] MEDS ORDERED: PT OWN MED DRAWER 7, Y5N ONE (08:58)
[2016-04-24] MEDS: SOLIFENACIN SUCCINATE 5 MG TAB (FP) PO SCH (09:30)
[2016-04-24] MEDS: HYDROCHLOROTHIAZIDE 25 MG TABLET (FP) PO SCH (09:30)
[2016-04-24] MEDS: TAMSULOSIN HCL 0.4 MG CAP.ER.24H (FP) PO SCH (09:30)
[2016-04-24] MEDS: METOPROLOL SUCCINATE 25 MG TAB.SR.24H (FP) PO SCH (09:30)
[2016-04-24] MEDS: HALOPERIDOL 0.5 MG TABLET PO PRN (09:31)
[2016-04-24] MEDS: APIXABAN 2.5 MG TABLET PO SCH (09:31)
[2016-04-24] MEDS: POTASSIUM CHLORIDE TABS 10 MEQ TABLET.ER (FP) PO SCH (09:32)
[2016-04-24] MEDS: BACITRACIN 30 GM TUBE TOPICAL OINTMENT TP SCH (09:33)
[2016-04-24] MEDS ORDERED: FOLIC ACID 1 MG TABLET (FP) PO SCH (10:00)
[2016-04-24] MEDS ORDERED: THIAMINE HCL 200 MG/2 ML VIAL IVPB SCH (10:00)
--- NOTE | 2016-04-24 10:03 | PN ---
Progress Note (short form) - Note Progress Note: RENAL Pt is in icu now for increasing confusion he is with his cant give any history Current Medications Generic Name Dose Route Start Last Admin Trade Name Melissa PRN Reason Stop Dose Admin Acetaminophen 650 mg 04/15/16 18:10 04/23/16 11:49 Tylenol - PO 650 mg Q4H PRN Administration FEVER OR PAIN Bacitracin 1 applic 04/22/16 15:00 04/24/16 09:33 Bacitracin - TP 1 applic Q2D@1000 [facility] Administration Benzocaine 1 applic 04/17/16 13:14 Americaine Ointment - SC PRN PRN PAIN Docusate Sodium 100 mg 04/15/16 22:00 04/24/16 06:26 Colace - PO Not Given TID [facility] Folic Acid 1 mg 04/24/16 10:00 Folic Acid - PO DAILY [facility] Haloperidol 0.5 mg 04/18/16 15:39 04/24/16 09:31 Haldol - PO 0.5 mg BID PRN Administration AGITATION Hydrochlorothiazide 25 mg 04/23/16 10:00 04/24/16 09:30 Hctz - PO 25 mg DAILY [facility] Administration Dextrose 1,000 mls @ 42 mls/hr 04/23/16 13:30 04/23/16 15:11 D5w - IV 04/24/16 13:18 42 mls/hr ASDIR ONE Administration Metoprolol Succinate 25 mg 04/21/16 14:30 04/24/16 09:30 Toprol Xl - PO 25 mg DAILY [facility] Administration Potassium Chloride 10 meq 04/16/16 10:00 04/24/16 09:32 K-Dur - PO 10 meq DAILY [facility] Administration Solifenacin 5 mg 04/19/16 10:00 04/24/16 09:30 Vesicare - PO 5 mg DAILY [facility] Administration Tamsulosin HCl 0.4 mg 04/18/16 08:30 04/24/16 09:30 Flomax - PO 0.4 mg DAILY@0830 [facility] Administration Thiamine HCl 200 mg 04/24/16 10:00 Vitamin B1 Injection - IVPB DAILY [facility] Last Vital Signs Temp Pulse Resp BP Pulse Ox 98.8 F 76 20 116/100 100 04/24/16 06:23 04/24/16 06:23 04/24/16 06:23 04/24/16 06:23 04/23/16 20:42 not on supplemental o2 and has high sat lungs poor effort cvs s1s2 rr abd soft ext no edema skin multiple ecchymotic areas neuro poorly responsive, no myoclonus CBC, BMP 04/24/16 05:00 04/24/16 05:00 IMPRESSION afib controlled s/p fall toxic metabolic encephalopathy- ?haldol induced abg is wrong. Doubt pts o2 was 130 at room air. Would have a negative Aa gradient PLAN would continue d5w for now hold haldol and vesicare neuro eval MV
--- NOTE | 2016-04-24 10:33 | PN ---
Progress Note (short form) - Note Progress Note: PULMONARY/CCM Pt seen and examined in the ICU. Transferred down for confusion and agitation. Per at bedside, he is at his baseline. No fevers recorded. Denies shortness of breath or chest pain. does complain of generalized pain. Last Vital Signs Temp Pulse Resp BP Pulse Ox 98.8 F 76 20 116/100 100 04/24/16 06:23 04/24/16 06:23 04/24/16 06:23 04/24/16 06:23 04/23/16 20:42 Intake & Output 04/21/16 04/22/16 04/23/16 04/24/16 23:59 23:59 23:59 23:59 Intake Total 850 540 434 604 Output Total 5 7950 800 Balance 850 838 -1216 -196 Weight 150 lb 106 lb 4.205 oz Gen: NAD, cachectic Heart: RRR Lung: distant breath sounds Abd: soft, nontender Ext: no edema CBC, BMP 04/24/16 05:00 04/24/16 05:00 Active Medications Acetaminophen (Tylenol -) 650 mg PO Q4H PRN PRN Reason: FEVER OR PAIN Last Admin: 04/23/16 11:49 Dose: 650 mg Bacitracin (Bacitracin -) 1 applic TP Q2D@1000 [facility] Last Admin: 04/24/16 09:33 Dose: 1 applic Benzocaine (Americaine Ointment -) 1 applic [place] PRN PRN PRN Reason: PAIN Docusate Sodium (Colace -) 100 mg PO TID [facility] Last Admin: 04/24/16 06:26 Dose: Not Given Folic Acid (Folic Acid -) 1 mg PO DAILY [facility] Last Admin: 04/24/16 10:06 Dose: 1 mg Haloperidol (Haldol -) 0.5 mg PO BID PRN PRN Reason: AGITATION Last Admin: 04/24/16 09:31 Dose: 0.5 mg Hydrochlorothiazide (Hctz -) 25 mg PO DAILY [facility] Last Admin: 04/24/16 09:30 Dose: 25 mg Dextrose (D5w -) 1,000 mls @ 42 mls/hr IV ASDIR ONE Stop: 04/24/16 13:18 Last Admin: 04/23/16 15:11 Dose: 42 mls/hr Metoprolol Succinate (Toprol Xl -) 25 mg PO DAILY [facility] Last Admin: 04/24/16 09:30 Dose: 25 mg Potassium Chloride (K-Dur -) 10 meq PO DAILY [facility] Last Admin: 04/24/16 09:32 Dose: 10 meq Solifenacin (Vesicare -) 5 mg PO DAILY [facility] Last Admin: 04/24/16 09:30 Dose: 5 mg Tamsulosin HCl (Flomax -) 0.4 mg PO DAILY@0830 [facility] Last Admin: 04/24/16 09:30 Dose: 0.4 mg Thiamine HCl (Vitamin B1 Injection -) 200 mg IVPB DAILY [facility] Last Admin: 04/24/16 10:07 Dose: 200 mg A/P Altered Mental Status resolved Hypernatremia/Lactic Acidosis likely related to dehydration Atrial Fibrillation Pleural Effusion resolved r/o Pancreatic Ca h/o Gastric Ca HTN DM BPH - continue IVF - monitor urine output, creatinine - pain control - O2 to keep SpO2 >90% - rate controlled on toprol - aspiration precautions - DVT prophylaxis - can monitor on floor
[2016-04-24 10:38] LABS: URINE APPEARANCE CLOUDY; URINE BILIRUBIN NEGATIVE (NEGATIVE); URINE COLOR YELLOW; URINE GLUCOSE (UA) NEGATIVE (NEGATIVE); URINE KETONE NEGATIVE (NEGATIVE); URINE LEUK ESTERASE NEGATIVE (NEGATIVE); URINE NITRITE NEGATIVE (NEGATIVE); URINE UROBILINOGEN NEGATIVE E.U./dl (0.2-1.0)
[2016-04-24 10:42] LABS: URINE BLOOD 3+ (NEGATIVE); URINE PROTEIN 1+ (NEGATIVE)
[2016-04-24 10:48] LABS: URINE MUCUS RARE; URINE RBC 273 /hpf (0-3); URINE WBC 16 /hpf (3-5); YEAST RARE
--- NOTE | 2016-04-24 12:52 | PN ---
Progress Note, Physician Chief Complaint: altered mental status History of Present Illness: 6-8 months of cognitive decline with 1-2 weeks of more severe confusion, dramatic decline over Monday/Monday. Daughter reports that today he is close to baseline. - Current Medication List Current Medications: Active Medications Acetaminophen (Tylenol -) 650 mg PO Q4H PRN PRN Reason: FEVER OR PAIN Last Admin: 04/23/16 11:49 Dose: 650 mg Bacitracin (Bacitracin -) 1 applic TP Q2D@1000 [facility] Last Admin: 04/24/16 09:33 Dose: 1 applic Benzocaine (Americaine Ointment -) 1 applic [place] PRN PRN PRN Reason: PAIN Docusate Sodium (Colace -) 100 mg PO TID [facility] Last Admin: 04/24/16 06:26 Dose: Not Given Folic Acid (Folic Acid -) 1 mg PO DAILY [facility] Last Admin: 04/24/16 10:06 Dose: 1 mg Haloperidol (Haldol -) 0.5 mg PO BID PRN PRN Reason: AGITATION Last Admin: 04/24/16 09:31 Dose: 0.5 mg Hydrochlorothiazide (Hctz -) 25 mg PO DAILY [facility] Last Admin: 04/24/16 09:30 Dose: 25 mg Dextrose (D5w -) 1,000 mls @ 42 mls/hr IV ASDIR ONE Stop: 04/24/16 13:18 Last Admin: 04/23/16 15:11 Dose: 42 mls/hr Metoprolol Succinate (Toprol Xl -) 25 mg PO DAILY [facility] Last Admin: 04/24/16 09:30 Dose: 25 mg Potassium Chloride (K-Dur -) 10 meq PO DAILY [facility] Last Admin: 04/24/16 09:32 Dose: 10 meq Solifenacin (Vesicare -) 5 mg PO DAILY [facility] Last Admin: 04/24/16 09:30 Dose: 5 mg Tamsulosin HCl (Flomax -) 0.4 mg PO DAILY@0830 [facility] Last Admin: 04/24/16 09:30 Dose: 0.4 mg Thiamine HCl (Vitamin B1 Injection -) 200 mg IVPB DAILY [facility] Last Admin: 04/24/16 10:07 Dose: 200 mg - Objective Vital Signs: Vital Signs Temperature 98.8 F 04/24/16 06:23 Pulse Rate 76 04/24/16 06:23 Respiratory Rate 20 01/22/17 09:00 Blood Pressure 116/100 04/24/16 06:23 O2 Sat by Pulse Oximetry (%) 100 04/24/16 09:00 Constitutional: Yes: Thin Neurological: Yes: Alert, Confusion, Cran Nerves II-XII Intact ...Motor Strength: WNL (moves all extremities equally without myoclonus that was seen yesterday) Labs: CBC, BMP 04/24/16 05:00 04/24/16 05:00 INR, PTT INR 1.70 (0.82-1.09) H 04/23/16 06:30 Problem List - Problems (1) Encephalopathy Code(s): G93.40 - ENCEPHALOPATHY, UNSPECIFIED (2) Encephalopathy due to metabolic factor or toxin Assessment/Plan: Marked improvement over yesterday. CT head failed to show evidence of structural deficit, and the impression that this is more of a metabolic phenomenon is reinforced by his lucidity today. Continue supportive medical care. Code(s): [id number] -
[2016-04-24] MEDS: traMADol HCL 50 MG TABLET PO SCH ×2 (16:13→22:16)
--- NOTE | 2016-04-24 16:34 | CON.GU ---
Consult Consult Specialty:: urology Referred by:: Tung Amador MD - History of Present Illness Chief Complaint: urinary retention History of Present Illness: Patient was found in urinary retention. [place] was placed initially without success and subsequently repositioned with proper urinary drainarge. The patient is currently comfortable with the [place] draining clear urine. Patient is no longer on Ditropan XL. 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 cancer stomach and cholocystectomy) Endocrine: Yes: Diabetes Mellitus Dermatology: Yes: Other (easy brusabiliy) - Past Surgical History Additional Surgical History: ?gastrectomy - Alcohol/Substance Use Hx Alcohol Use: No - Smoking History Smoking history: Never smoked Have you smoked in the past 12 months: No - Social History ADL: Family Assistance History of Recent Travel: No Home Medications - Allergies Allergies/Adverse Reactions: Allergies Allergy/AdvReac Type Severity Reaction Status Date / Time aspirin Allergy Rash Verified 04/15/16 10:47 - Home Medications Home Medications: Ambulatory Orders Metoprolol "Xl" (Sustain Act) [Toprol Xl] 50 mg PO DAILY 08/09/11 Warfarin Na [Coumadin] mg PO DAILY@1800 08/09/11 Metformin HCl 500 mg PO DAILY 04/11/16 Tramadol HCl 50 mg PO TID #21 tablet MDD 3 04/11/16 Physical Exam- Vital Signs: Vital Signs Temperature 98.4 F 04/24/16 14:00 Pulse Rate 90 04/24/16 16:00 Respiratory Rate 21 04/24/16 16:00 Blood Pressure 115/65 04/24/16 16:00 O2 Sat by Pulse Oximetry (%) 100 04/24/16 09:00 Gastrointestinal: Yes: WNL, Normal Bowel Sounds, Soft Renal/: Yes: WNL Kidneys: Yes: WNL Pelvis: Yes: WNL Testicles: Yes: WNL Scrotum: Yes: WNL Penis: Yes: WNL Prostate Exam: Yes: Deferred Labs: CBC, BMP 04/24/16 05:00 04/24/16 05:00 Assessment/Plan Impression bph urinary incontinence urinary retention plan maintain with [place].
[2016-04-24] MEDS ORDERED: BENZOCAINE 28 GM HEMORRHOIDAL OINTMENT PR PRN (19:07)
[2016-04-24] MEDS ORDERED: HALOPERIDOL 0.5 MG TABLET PO PRN (19:07)
[2016-04-25] MEDS: DOCUSATE SODIUM 100 MG CAPSULE (FP) PO SCH ×3 (05:58→22:11)
[2016-04-25 06:32] LABS: BASOPHIL 1.3 % (0-2.0); MCH 26.2 pg (25.7-33.7); MCHC 32.6 g/dl (32.0-35.9); MEAN CELL VOLUME 80.5 fl (80-96); MEAN PLT VOLUME 9.1 fl (7.5-11.1); NEUTROPHILS 60.6 % (42.8-82.8); PLATELET COUNT 307 K/MM3 (134-434); RDW 20.4 % (11.9-15.9); WHITE BLOOD COUNT 9.1 K/mm3 (4.0-10.0)
[2016-04-25 06:52] LABS: ALBUMIN 2.3 g/dl (3.4-5.0); ANION GAP 5 (8-16); CALCIUM 8.6 mg/dL (8.5-10.1); CO2 31 mmol/L (21-32); GLUCOSE,RANDOM 96 mg/dL (74-106); MAGNESIUM 2.2 mg/dL (1.8-2.4); PHOSPHOROUS 2.8 mg/dL (2.5-4.9); SGOT/AST 43 U/L (15-37); SGPT/ALT 27 U/L (12-78)
[2016-04-25 06:54] LABS: ALK PHOS 127 U/L (45-117); BILIRUBIN,TOTAL 0.5 mg/dL (0.2-1.0); CREATININE 0.7 mg/dL (0.7-1.3); TOT PROT 5.8 g/dl (6.4-8.2)
--- NOTE | 2016-04-25 09:00 | CON.ORTH ---
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 cancer stomach and cholocystectomy) Endocrine: Yes: Diabetes Mellitus Dermatology: Yes: Other (easy brusabiliy) - Past Surgical History Additional Surgical History: ?gastrectomy - Alcohol/Substance Use Hx Alcohol Use: No - Smoking History Smoking history: Never smoked Have you smoked in the past 12 months: No - Social History ADL: Family Assistance History of Recent Travel: No Home Medications - Allergies Allergies/Adverse Reactions: Allergies Allergy/AdvReac Type Severity Reaction Status Date / Time aspirin Allergy Rash Verified 04/15/16 10:47 - Home Medications Home Medications: Ambulatory Orders Metoprolol "Xl" (Sustain Act) [Toprol Xl] 50 mg PO DAILY 08/09/11 Warfarin Na [Coumadin] mg PO DAILY@1800 08/09/11 Metformin HCl 500 mg PO DAILY 04/11/16 Tramadol HCl 50 mg PO TID #21 tablet MDD 3 04/11/16 Physical Exam for Ortho Vital Signs: Vital Signs Temperature 97.3 F L 04/25/16 02:00 Pulse Rate 90 04/25/16 04:00 Respiratory Rate 18 04/25/16 04:00 Blood Pressure 120/65 04/25/16 04:00 O2 Sat by Pulse Oximetry (%) 98 04/24/16 19:50 Wound/Incision: Yes: Clean/Dry, Dressing Dry and Intact, Other (B/L UE- multiple ulcerations/small superficial lacs ) Labs: CBC, BMP 04/25/16 05:55 04/25/16 05:55 INR, PTT INR 1.70 (0.82-1.09) H 04/23/16 06:30 Imaging - Results Cat Scan: Report Reviewed, Image Reviewed Assessment/Plan 86 M with h/o DM2, AF on AC (coumadin), S/P remote gastrectomy for gastric CA, HTN, admitted for evaluation of 2 week h/o left upper quadrant abdominal pain.Denies chest pain, dyspnea or palpitations. s/p fall 2 weeks ago. Offers no complants at the present time however poor historian. a/p- T11 compression fx, B/L UE multiple ulcerations/lacs NTD for compression fx PT if able OOB continue with wound dressing will follow d/w Dr. Jaffe
[2016-04-25] MEDS ORDERED: PT OWN MED DRAWER 7, Y5N ONE (09:53)
[2016-04-25] MEDS ORDERED: HYDROCHLOROTHIAZIDE 25 MG TABLET (FP) PO SCH (10:00)
[2016-04-25] MEDS: traMADol HCL 50 MG TABLET PO SCH (10:02)
[2016-04-25] MEDS: LIDOCAINE 5% TOPICAL PATCH TP SCH (10:11)
[2016-04-25] MEDS: SOLIFENACIN SUCCINATE 5 MG TAB (FP) PO SCH (10:13)
[2016-04-25] MEDS: TAMSULOSIN HCL 0.4 MG CAP.ER.24H (FP) PO SCH (10:13)
[2016-04-25] MEDS: METOPROLOL SUCCINATE 25 MG TAB.SR.24H (FP) PO SCH (10:13)
[2016-04-25] MEDS: POTASSIUM CHLORIDE TABS 10 MEQ TABLET.ER (FP) PO SCH (10:13)
[2016-04-25] MEDS: FOLIC ACID 1 MG TABLET (FP) PO SCH (10:13)
[2016-04-25] MEDS: THIAMINE HCL 200 MG/2 ML VIAL IVPB SCH (10:14)
--- NOTE | 2016-04-25 11:59 | PN ---
Progress Note (short form) - Note Progress Note: PULMONARY No fevers recorded. Denies shortness of breath or chest pain. Last Vital Signs Temp Pulse Resp BP Pulse Ox 97.3 F L 90 18 120/65 98 04/25/16 02:00 04/25/16 04:00 04/25/16 04:00 04/25/16 04:00 04/24/16 19:50 Gen: NAD, cachectic Heart: RRR Lung: distant breath sounds Abd: soft, nontender Ext: no edema CBC, BMP 04/25/16 05:55 04/25/16 05:55 Active Medications Acetaminophen (Tylenol -) 650 mg PO Q4H PRN PRN Reason: FEVER OR PAIN Bacitracin (Bacitracin -) 1 applic TP Q2D@1000 [facility] Benzocaine (Americaine Ointment -) 1 applic [place] PRN PRN PRN Reason: PAIN Docusate Sodium (Colace -) 100 mg PO TID [facility] Last Admin: 04/25/16 05:58 Dose: 100 mg Folic Acid (Folic Acid -) 1 mg PO DAILY [facility] Last Admin: 04/25/16 10:13 Dose: 1 mg Haloperidol (Haldol -) 0.5 mg PO BID PRN PRN Reason: AGITATION Hydrochlorothiazide (Hctz -) 25 mg PO DAILY [facility] Last Admin: 04/25/16 10:12 Dose: 25 mg Lidocaine (Lidoderm Patch -) 1 patch TP DAILY [facility] Last Admin: 04/25/16 10:11 Dose: 1 patch Metoprolol Succinate (Toprol Xl -) 25 mg PO DAILY [facility] Last Admin: 04/25/16 10:13 Dose: 25 mg Potassium Chloride (K-Dur -) 10 meq PO DAILY [facility] Last Admin: 04/25/16 10:13 Dose: 10 meq Solifenacin (Vesicare -) 5 mg PO DAILY [facility] Last Admin: 04/25/16 10:13 Dose: 5 mg Tamsulosin HCl (Flomax -) 0.4 mg PO DAILY@0830 [facility] Last Admin: 04/25/16 10:13 Dose: 0.4 mg Thiamine HCl (Vitamin B1 Injection -) 200 mg IVPB DAILY [facility] Last Admin: 04/25/16 10:14 Dose: 200 mg Tramadol HCl (Ultram -) 50 mg PO BID [facility] Last Admin: 01/23/17 10:02 Dose: 50 mg A/P Altered Mental Status resolved Hypernatremia/Lactic Acidosis likely related to dehydration Atrial Fibrillation Pleural Effusion resolved r/o Pancreatic Ca h/o Gastric Ca HTN DM BPH - pain control - encourage free water intake - O2 to keep SpO2 >90% - rate controlled on toprol - aspiration precautions - DVT prophylaxis
[2016-04-25] MEDS ORDERED: SODIUM CHLORIDE 0.45% 1,000 ML IV SCH (12:00)
--- NOTE | 2016-04-25 12:25 | PN ---
Progress Note, Physician Chief Complaint: afib History of Present Illness: no saudi arabian per : no complaints of cp, sob, palpitations, syncope - Current Medication List Current Medications: Active Medications Acetaminophen (Tylenol -) 650 mg PO Q4H PRN PRN Reason: FEVER OR PAIN Bacitracin (Bacitracin -) 1 applic TP Q2D@1000 [facility] Benzocaine (Americaine Ointment -) 1 applic MD PRN PRN PRN Reason: PAIN Docusate Sodium (Colace -) 100 mg PO TID [facility] Last Admin: 04/25/16 05:58 Dose: 100 mg Folic Acid (Folic Acid -) 1 mg PO DAILY [facility] Last Admin: 04/25/16 10:13 Dose: 1 mg Haloperidol (Haldol -) 0.5 mg PO BID PRN PRN Reason: AGITATION Hydrochlorothiazide (Hctz -) 25 mg PO DAILY [facility] Last Admin: 04/25/16 10:12 Dose: 25 mg Sodium Chloride (1/2 Normal Saline) 1,000 mls @ 50 mls/hr IV ASDIR [facility] Lidocaine (Lidoderm Patch -) 1 patch TP DAILY [facility] Last Admin: 04/25/16 10:11 Dose: 1 patch Metoprolol Succinate (Toprol Xl -) 25 mg PO DAILY [facility] Last Admin: 04/25/16 10:13 Dose: 25 mg Potassium Chloride (K-Dur -) 10 meq PO DAILY [facility] Last Admin: 04/25/16 10:13 Dose: 10 meq Solifenacin (Vesicare -) 5 mg PO DAILY [facility] Last Admin: 04/25/16 10:13 Dose: 5 mg Tamsulosin HCl (Flomax -) 0.4 mg PO DAILY@0830 [facility] Last Admin: 04/25/16 10:13 Dose: 0.4 mg Thiamine HCl (Vitamin B1 Injection -) 200 mg IVPB DAILY [facility] Last Admin: 04/25/16 10:14 Dose: 200 mg Tramadol HCl (Ultram -) 50 mg PO BID [facility] Last Admin: 04/25/16 10:02 Dose: 50 mg - Objective Vital Signs: Vital Signs Temperature 97.3 F L 04/25/16 02:00 Pulse Rate 90 04/25/16 04:00 Respiratory Rate 18 04/25/16 04:00 Blood Pressure 120/65 04/25/16 04:00 O2 Sat by Pulse Oximetry (%) 98 04/24/16 19:50 Constitutional: Yes: Well Nourished, No Distress, Calm Cardiovascular: Yes: Regular Rate and Rhythm, S1, S2. No: Gallop, Murmur Respiratory: Yes: Regular, CTA Bilaterally. No: Accessory Muscle Use Extremities: No: Cold Edema: No Neurological: Yes: Alert. No: Seizure Psychiatric: No: Agitated Labs: CBC, BMP 04/25/16 05:55 04/25/16 05:55 INR, PTT INR 1.70 (0.82-1.09) H 04/23/16 06:30 Assessment/Plan AFib -Reasonable rate controlled on Metoprolol at 25 mg daily, continue -coumadin held initially with plans for diagnostic/therapeutic thoracentesis, per pulm--however rpt cxr looked improved after diuresis so no plans for thoracentesis at this time per dr haile -i d/w'd dr haile yesterday--he states at baseline pt lives with family member and is not highly confused or suffering from significant dementia; he also states pt has had no issues with poor balance or frequent falls or near-falls, and he does not believe pt is at hi risk for falls; he also states there is no known h/o pathological bleeding -therefore, based on this collateral information about pt's baseline functional status, it seems reasonable to plan to resume AC long term for CVA prophylaxis given his CHADS-VASC score of 4. -dr mathis's notes reviewed--no contraind to AC noted, pt with freq bruising on warfarin -will change to eliquis 2.5 bid per prior notes (lower risk of ICH/serious bleeding in trials), correct dosing per his listed wt -eliquis currently on hold ( eval for urinary retention ongoing)--start 2.5 bid once no invasive procedures are planned -of course, AC may need to be reconsidered if pt's acute mental status changes do not reverse, and he remains with agitation and is at risk of falls when leaves hospital -Allergy to ASA confusion, encephalopathy -likely toxic-metabolic per neuro -CT head over weekend with no acute pathology Pleural effusion - per CXR 04/23 report, pleural fluid has resolved with diuresis - observe for sob and f/u serial cxr in future for reaccumulation - hold lasix (hypernatremia) hypernatremia: - likely secondary to lasix, now stopped - improving with D5W overnight--per crit care HTN -labile. Con't metoprolol. HCTZ as mentioned. DM -per pmd, crit care abdominal pain and h/o gastric cancer - with concern for hepatobiliary abnormality. per pmd, GI
--- NOTE | 2016-04-25 15:06 | PN ---
Progress Note, Physician - Current Medication List Current Medications: Active Medications Acetaminophen (Tylenol -) 650 mg PO Q4H PRN PRN Reason: FEVER OR PAIN Bacitracin (Bacitracin -) 1 applic TP Q2D@1000 [facility] Benzocaine (Americaine Ointment -) 1 applic [place] PRN PRN PRN Reason: PAIN Docusate Sodium (Colace -) 100 mg PO TID [facility] Last Admin: 04/25/16 14:21 Dose: 100 mg Folic Acid (Folic Acid -) 1 mg PO DAILY [facility] Last Admin: 04/25/16 10:13 Dose: 1 mg Haloperidol (Haldol -) 0.5 mg PO BID PRN PRN Reason: AGITATION Hydrochlorothiazide (Hctz -) 25 mg PO DAILY [facility] Last Admin: 04/25/16 10:12 Dose: 25 mg Sodium Chloride (1/2 Normal Saline) 1,000 mls @ 50 mls/hr IV ASDIR [facility] Last Admin: 04/25/16 12:44 Dose: 50 mls/hr Lidocaine (Lidoderm Patch -) 1 patch TP DAILY [facility] Last Admin: 04/25/16 10:11 Dose: 1 patch Metoprolol Succinate (Toprol Xl -) 25 mg PO DAILY [facility] Last Admin: 04/25/16 10:13 Dose: 25 mg Potassium Chloride (K-Dur -) 10 meq PO DAILY [facility] Last Admin: 04/25/16 10:13 Dose: 10 meq Solifenacin (Vesicare -) 5 mg PO DAILY [facility] Last Admin: 04/25/16 10:13 Dose: 5 mg Tamsulosin HCl (Flomax -) 0.4 mg PO DAILY@0830 [facility] Last Admin: 04/25/16 10:13 Dose: 0.4 mg Thiamine HCl (Vitamin B1 Injection -) 200 mg IVPB DAILY [facility] Last Admin: 04/25/16 10:14 Dose: 200 mg Tramadol HCl (Ultram -) 50 mg PO BID [facility] Last Admin: 04/25/16 10:02 Dose: 50 mg - Objective Vital Signs: Vital Signs Temperature 98.0 F 04/25/16 14:00 Pulse Rate 108 H 04/25/16 14:00 Respiratory Rate 20 04/25/16 14:00 Blood Pressure 120/69 04/25/16 14:00 O2 Sat by Pulse Oximetry (%) 98 04/25/16 09:00 Labs: CBC, BMP 04/25/16 05:55 04/25/16 05:55 INR, PTT INR 1.70 (0.82-1.09) H 04/23/16 06:30 Problem List - Problems (1) Impaction of colon Code(s): K56.49 - OTHER IMPACTION OF INTESTINE (2) A-fib Code(s): I48.91 - UNSPECIFIED ATRIAL FIBRILLATION Assessment/Plan pt more awake vss foly intact no gu proceduere i am awer of still at times agitated bm ok labs ok gu f/u p/t
--- NOTE | 2016-04-25 15:52 | PN ---
Progress Note, Physician History of Present Illness: confusion less no new events patient transferred to 6th floor restless - Current Medication List Current Medications: Active Medications Acetaminophen (Tylenol -) 650 mg PO Q4H PRN PRN Reason: FEVER OR PAIN Apixaban (Eliquis -) 2.5 mg PO BID [facility] Bacitracin (Bacitracin -) 1 applic TP Q2D@1000 [facility] Benzocaine (Americaine Ointment -) 1 applic [place] PRN PRN PRN Reason: PAIN Docusate Sodium (Colace -) 100 mg PO TID [facility] Last Admin: 04/25/16 14:21 Dose: 100 mg Folic Acid (Folic Acid -) 1 mg PO DAILY [facility] Last Admin: 04/25/16 10:13 Dose: 1 mg Haloperidol (Haldol -) 0.5 mg PO BID PRN PRN Reason: AGITATION Hydrochlorothiazide (Hctz -) 25 mg PO DAILY [facility] Last Admin: 04/25/16 10:12 Dose: 25 mg Sodium Chloride (1/2 Normal Saline) 1,000 mls @ 50 mls/hr IV ASDIR [facility] Last Admin: 04/25/16 12:44 Dose: 50 mls/hr Lidocaine (Lidoderm Patch -) 1 patch TP DAILY [facility] Last Admin: 04/25/16 10:11 Dose: 1 patch Metoprolol Succinate (Toprol Xl -) 25 mg PO DAILY [facility] Last Admin: 04/25/16 10:13 Dose: 25 mg Potassium Chloride (K-Dur -) 10 meq PO DAILY [facility] Last Admin: 04/25/16 10:13 Dose: 10 meq Solifenacin (Vesicare -) 5 mg PO DAILY [facility] Last Admin: 04/25/16 10:13 Dose: 5 mg Tamsulosin HCl (Flomax -) 0.4 mg PO DAILY@0830 [facility] Last Admin: 04/25/16 10:13 Dose: 0.4 mg Thiamine HCl (Vitamin B1 Injection -) 200 mg IVPB DAILY [facility] Last Admin: 04/25/16 10:14 Dose: 200 mg Tramadol HCl (Ultram -) 50 mg PO BID [facility] Last Admin: 04/25/16 10:02 Dose: 50 mg - Objective Vital Signs: Vital Signs Temperature 98.0 F 04/25/16 14:00 Pulse Rate 108 H 04/25/16 14:00 Respiratory Rate 20 04/25/16 14:00 Blood Pressure 120/69 04/25/16 14:00 O2 Sat by Pulse Oximetry (%) 98 04/25/16 09:00 Constitutional: Yes: Calm, Mild Distress Cardiovascular: Yes: Regular Rate and Rhythm Respiratory: Yes: Regular Gastrointestinal: Yes: Normal Bowel Sounds, Soft Extremities: Yes: Other Integumentary: Yes: Skin Tear, Other Wound/Incision: Yes: Other Neurological: Yes: Confusion Labs: CBC, BMP 04/25/16 05:55 04/25/16 05:55 INR, PTT INR 1.70 (0.82-1.09) H 04/23/16 06:30 Assessment/Plan Problem List - Problems (1) Impaction of colon Code(s): K56.49 - OTHER IMPACTION OF INTESTINE (2) A-fib Code(s): I48.91 - UNSPECIFIED ATRIAL FIBRILLATION pneumonia abd pain confusion pleural effusion dehydration plan stable off of abx confusion persists hydration as per renal close monitoring
--- NOTE | 2016-04-25 15:57 | PN ---
Progress Note, Physician History of Present Illness: Pt seen and examined at bedside. He is now in the medical peguero. - Current Medication List Current Medications: Active Medications Acetaminophen (Tylenol -) 650 mg PO Q4H PRN PRN Reason: FEVER OR PAIN Apixaban (Eliquis -) 2.5 mg PO BID [facility] Bacitracin (Bacitracin -) 1 applic TP Q2D@1000 [facility] Benzocaine (Americaine Ointment -) 1 applic [place] PRN PRN PRN Reason: PAIN Docusate Sodium (Colace -) 100 mg PO TID [facility] Last Admin: 04/25/16 14:21 Dose: 100 mg Folic Acid (Folic Acid -) 1 mg PO DAILY [facility] Last Admin: 04/25/16 10:13 Dose: 1 mg Haloperidol (Haldol -) 0.5 mg PO BID PRN PRN Reason: AGITATION Hydrochlorothiazide (Hctz -) 25 mg PO DAILY [facility] Last Admin: 04/25/16 10:12 Dose: 25 mg Sodium Chloride (1/2 Normal Saline) 1,000 mls @ 50 mls/hr IV ASDIR [facility] Last Admin: 04/25/16 12:44 Dose: 50 mls/hr Lidocaine (Lidoderm Patch -) 1 patch TP DAILY [facility] Last Admin: 04/25/16 10:11 Dose: 1 patch Metoprolol Succinate (Toprol Xl -) 25 mg PO DAILY [facility] Last Admin: 04/25/16 10:13 Dose: 25 mg Potassium Chloride (K-Dur -) 10 meq PO DAILY [facility] Last Admin: 04/25/16 10:13 Dose: 10 meq Solifenacin (Vesicare -) 5 mg PO DAILY [facility] Last Admin: 04/25/16 10:13 Dose: 5 mg Tamsulosin HCl (Flomax -) 0.4 mg PO DAILY@0830 [facility] Last Admin: 04/25/16 10:13 Dose: 0.4 mg Thiamine HCl (Vitamin B1 Injection -) 200 mg IVPB DAILY [facility] Last Admin: 04/25/16 10:14 Dose: 200 mg Tramadol HCl (Ultram -) 50 mg PO BID [facility] Last Admin: 04/25/16 10:02 Dose: 50 mg - Objective Vital Signs: Vital Signs Temperature 98.0 F 04/25/16 14:00 Pulse Rate 108 H 04/25/16 14:00 Respiratory Rate 20 04/25/16 14:00 Blood Pressure 120/69 04/25/16 14:00 O2 Sat by Pulse Oximetry (%) 98 04/25/16 09:00 Constitutional: Yes: Calm Eyes: Yes: Conjunctiva Clear HENT: Yes: Atraumatic Neck: Yes: Supple Cardiovascular: Yes: Pulse Irregular, S1, S2 Respiratory: Yes: CTA Bilaterally Gastrointestinal: Yes: Soft Genitourinary: Yes: Saldivar Present Musculoskeletal: Yes: Muscle Weakness Edema: No Labs: CBC, BMP 04/25/16 05:55 04/25/16 05:55 INR, PTT INR 1.70 (0.82-1.09) H 04/23/16 06:30 Assessment/Plan Current Medications Generic Name Dose Route Start Last Admin Trade Name Freq PRN Reason Stop Dose Admin Acetaminophen 650 mg 04/24/16 19:07 Tylenol - PO Q4H PRN FEVER OR PAIN Apixaban 2.5 mg 04/25/16 22:00 Eliquis - PO BID [facility] Bacitracin 1 applic 04/26/16 10:00 Bacitracin - TP Q2D@1000 [facility] Benzocaine 1 applic 04/24/16 19:07 Americaine Ointment - OR PRN PRN PAIN Docusate Sodium 100 mg 04/24/16 22:00 04/25/16 14:21 Colace - PO 100 mg TID [facility] Administration Folic Acid 1 mg 04/25/16 10:00 04/25/16 10:13 Folic Acid - PO 1 mg DAILY [facility] Administration Haloperidol 0.5 mg 04/24/16 19:07 Haldol - PO BID PRN AGITATION Hydrochlorothiazide 25 mg 04/25/16 10:00 04/25/16 10:12 Hctz - PO 25 mg DAILY [facility] Administration Sodium Chloride 1,000 mls @ 50 mls/hr 04/25/16 12:00 04/25/16 12:44 1/2 Normal Saline IV 50 mls/hr ASDIR [facility] Administration Lidocaine 1 patch 04/25/16 10:00 04/25/16 10:11 Lidoderm Patch - TP 1 patch DAILY [facility] Administration Metoprolol Succinate 25 mg 04/25/16 10:00 04/25/16 10:13 Toprol Xl - PO 25 mg DAILY [facility] Administration Potassium Chloride 10 meq 04/25/16 10:00 04/25/16 10:13 K-Dur - PO 10 meq DAILY [facility] Administration Solifenacin 5 mg 04/25/16 10:00 04/25/16 10:13 Vesicare - PO 5 mg DAILY [facility] Administration Tamsulosin HCl 0.4 mg 04/25/16 08:30 04/25/16 10:13 Flomax - PO 0.4 mg DAILY@0830 [facility] Administration Thiamine HCl 200 mg 04/25/16 10:00 04/25/16 10:14 Vitamin B1 Injection - IVPB 200 mg DAILY [facility] Administration Tramadol HCl 50 mg 04/24/16 15:45 04/25/16 10:02 Ultram - PO 50 mg BID [facility] Administration Impression 1. Hypernatremia 2. azotemia 3. a-fib 4. plerual effusions 5. HTN 6. DM 7. BPH 8. altered mental status Plan - recommend that he stays on hypotonic fluids - repeat bmp in am - monitor bp - encourage free water intake if possible - will hold hctz as pt is getting fluids in the meantime Dr Eddy
[2016-04-25] MEDS ORDERED: DEXTROSE 5%-WATER - 1,000 ML IV SCH (16:00)
--- NOTE | 2016-04-25 18:31 | PN ---
Progress Note, Physician History of Present Illness: Pt awake , as per nursing staff and team appears to be closer to baseline poor verbal output and + tremulous afebrile - Current Medication List Current Medications: Active Medications Acetaminophen (Tylenol -) 650 mg PO Q4H PRN PRN Reason: FEVER OR PAIN Apixaban (Eliquis -) 2.5 mg PO BID [facility] Bacitracin (Bacitracin -) 1 applic TP Q2D@1000 [facility] Benzocaine (Americaine Ointment -) 1 applic [place] PRN PRN PRN Reason: PAIN Docusate Sodium (Colace -) 100 mg PO TID [facility] Last Admin: 04/25/16 14:21 Dose: 100 mg Folic Acid (Folic Acid -) 1 mg PO DAILY [facility] Last Admin: 04/25/16 10:13 Dose: 1 mg Haloperidol (Haldol -) 0.5 mg PO BID PRN PRN Reason: AGITATION Dextrose (D5w -) 1,000 mls @ 60 mls/hr IV .[id number] [facility] Last Admin: 04/25/16 17:12 Dose: 60 mls/hr Lidocaine (Lidoderm Patch -) 1 patch TP DAILY [facility] Last Admin: 04/25/16 10:11 Dose: 1 patch Metoprolol Succinate (Toprol Xl -) 25 mg PO DAILY [facility] Last Admin: 04/25/16 10:13 Dose: 25 mg Potassium Chloride (K-Dur -) 10 meq PO DAILY [facility] Last Admin: 04/25/16 10:13 Dose: 10 meq Solifenacin (Vesicare -) 5 mg PO DAILY [facility] Last Admin: 04/25/16 10:13 Dose: 5 mg Tamsulosin HCl (Flomax -) 0.4 mg PO DAILY@0830 [facility] Last Admin: 04/25/16 10:13 Dose: 0.4 mg Thiamine HCl (Vitamin B1 Injection -) 200 mg IVPB DAILY [facility] Last Admin: 04/25/16 10:14 Dose: 200 mg Tramadol HCl (Ultram -) 50 mg PO BID [facility] Last Admin: 04/25/16 10:02 Dose: 50 mg - Objective Vital Signs: Vital Signs Temperature 98.0 F 04/25/16 14:00 Pulse Rate 108 H 04/25/16 14:00 Respiratory Rate 20 04/25/16 14:00 Blood Pressure 120/69 04/25/16 14:00 O2 Sat by Pulse Oximetry (%) 98 04/25/16 09:00 Constitutional: Yes: Cachectic Neurological: Yes: Other (awakens to name, follows simple requests, blinks to threat, hands restrained, tremor, + cogwheeling) Labs: CBC, BMP 04/25/16 05:55 04/25/16 05:55 INR, PTT INR 1.70 (0.82-1.09) H 04/23/16 06:30 - ....Imaging Cat Scan: Report Reviewed Problem List - Problems (1) A-fib Code(s): I48.91 - UNSPECIFIED ATRIAL FIBRILLATION (2) Encephalopathy due to metabolic factor or toxin Code(s): AJU6357 - (3) Dementia Code(s): F03.90 - UNSPECIFIED DEMENTIA WITHOUT BEHAVIORAL DISTURBANCE Assessment/Plan delirium (metabolic/infectious) with underlying dementia, ABX DC ammonia WNL, check TSH closer to baseline as per team would avoid antipyschotics /neuroleptics ie HALDOL (dc'ed), as this will worsen extrapyrimidal Sx use very low dose ATIVAN if absolutely necessary for agitation would DC tramadol , may worsen confusion --use tylenol for pain Dr uHynh [phone]
[2016-04-25] MEDS: APIXABAN 2.5 MG TABLET PO SCH (22:11)
[2016-04-26] MEDS: ACETAMINOPHEN 325 MG TABLET (FP) PO PRN ×2 (02:48→21:44)
[2016-04-26] MEDS: DOCUSATE SODIUM 100 MG CAPSULE (FP) PO SCH ×3 (06:12→21:40)
--- NOTE | 2016-04-26 08:19 | CONSULT ---
Consult - text type - Consultation Consultation Note: CC: bph and urinary retention HPI: Patient with history of overflow incontinence and bph. Patient is bed- bound and currently on flomax. Saldivar was removed yesterday. His diaper was wet and a check of his bladder volume was 189cc. Patient is comfortable. PE abd- soft, non-tender; no palapable bladder appreciated genitalia- normal phallus and hypotrophic testes imp bph neurogenic bladder plan urecholine (bethenacol) started at 5 mg TID follow urinary output
[2016-04-26 08:20] LABS: BASOPHIL 0.1 % (0-2.0); EOSINOPHIL 0.4 % (0-4.5); MCHC 32.1 g/dl (32.0-35.9); MEAN PLT VOLUME 8.6 fl (7.5-11.1); NEUTROPHILS 70.1 % (42.8-82.8); PLATELET COUNT 275 K/MM3 (134-434); WHITE BLOOD COUNT 12.1 K/mm3 (4.0-10.0)
[2016-04-26 08:42] LABS: CALCIUM 8.3 mg/dL (8.5-10.1)
[2016-04-26 08:49] LABS: THYROID STIMULATING HORMONE 9.17 uIU/ml (0.358-3.74)
[2016-04-26] MEDS ORDERED: LEVOTHYROXINE NA 50 MCG TABLET (FP) PO ONE (09:44)
[2016-04-26] MEDS ORDERED: BACITRACIN 30 GM TUBE TOPICAL OINTMENT TP SCH (10:00)
--- NOTE | 2016-04-26 10:37 | PN ---
Progress Note, Physician - Current Medication List Current Medications: Active Medications Acetaminophen (Tylenol -) 650 mg PO Q4H PRN PRN Reason: FEVER OR PAIN Last Admin: 04/26/16 02:48 Dose: 650 mg Apixaban (Eliquis -) 2.5 mg PO BID [facility] Last Admin: 04/25/16 22:11 Dose: 2.5 mg Bacitracin (Bacitracin -) 1 applic TP Q2D@1000 [facility] Benzocaine (Americaine Ointment -) 1 applic [place] PRN PRN PRN Reason: PAIN Bethanechol Chloride (Urecholine -) 5 mg PO TID [facility] Docusate Sodium (Colace -) 100 mg PO TID [facility] Last Admin: 04/26/16 06:12 Dose: 100 mg Folic Acid (Folic Acid -) 1 mg PO DAILY [facility] Last Admin: 04/25/16 10:13 Dose: 1 mg Dextrose (D5w -) 1,000 mls @ 60 mls/hr IV .[id number] [facility] Last Admin: 04/25/16 17:12 Dose: 60 mls/hr Lidocaine (Lidoderm Patch -) 1 patch TP DAILY [facility] Last Admin: 04/25/16 10:11 Dose: 1 patch Metoprolol Succinate (Toprol Xl -) 25 mg PO DAILY [facility] Last Admin: 04/25/16 10:13 Dose: 25 mg Potassium Chloride (K-Dur -) 10 meq PO DAILY [facility] Last Admin: 04/25/16 10:13 Dose: 10 meq Solifenacin (Vesicare -) 5 mg PO DAILY [facility] Last Admin: 04/25/16 10:13 Dose: 5 mg Tamsulosin HCl (Flomax -) 0.4 mg PO DAILY@0830 [facility] Last Admin: 04/25/16 10:13 Dose: 0.4 mg Thiamine HCl (Vitamin B1 Injection -) 200 mg IVPB DAILY [facility] Last Admin: 04/25/16 10:14 Dose: 200 mg - Objective Vital Signs: Vital Signs Temperature 97.9 F 04/26/16 05:55 Pulse Rate 85 04/26/16 05:55 Respiratory Rate 18 04/26/16 05:55 Blood Pressure 113/63 04/26/16 05:55 O2 Sat by Pulse Oximetry (%) 98 04/25/16 21:00 Labs: CBC, BMP 04/26/16 07:30 04/26/16 07:30 INR, PTT INR 1.70 (0.82-1.09) H 04/23/16 06:30 Problem List - Problems (1) Impaction of colon Code(s): K56.49 - OTHER IMPACTION OF INTESTINE (2) A-fib Code(s): I48.91 - UNSPECIFIED ATRIAL FIBRILLATION Assessment/Plan pt comfortable vss nl bm less pain [place] out psa ordered gu to do cystometrics if meds no work place to natali dumas
[2016-04-26] MEDS: TAMSULOSIN HCL 0.4 MG CAP.ER.24H (FP) PO SCH (10:41)
[2016-04-26] MEDS: LIDOCAINE 5% TOPICAL PATCH TP SCH (10:41)
[2016-04-26] MEDS: POTASSIUM CHLORIDE TABS 10 MEQ TABLET.ER (FP) PO SCH (10:41)
[2016-04-26] MEDS: APIXABAN 2.5 MG TABLET PO SCH ×2 (10:41→21:41)
[2016-04-26] MEDS: METOPROLOL SUCCINATE 25 MG TAB.SR.24H (FP) PO SCH (10:41)
[2016-04-26] MEDS: SOLIFENACIN SUCCINATE 5 MG TAB (FP) PO SCH (10:41)
[2016-04-26] MEDS: FOLIC ACID 1 MG TABLET (FP) PO SCH (10:41)
[2016-04-26] MEDS: THIAMINE HCL 200 MG/2 ML VIAL IVPB SCH (10:42)
--- NOTE | 2016-04-26 11:06 | PN ---
Progress Note (short form) - Note Progress Note: PULMONARY Sitting in chair. No fevers recorded. Denies shortness of breath or chest pain. Last Vital Signs Temp Pulse Resp BP Pulse Ox 97.9 F 85 18 113/63 98 04/26/16 05:55 04/26/16 05:55 04/26/16 05:55 04/26/16 05:55 04/25/16 21:00 Gen: NAD, cachectic Heart: RRR Lung: distant breath sounds Abd: soft, nontender Ext: no edema CBC, BMP 04/26/16 07:30 04/26/16 07:30 Active Medications Acetaminophen (Tylenol -) 650 mg PO Q4H PRN PRN Reason: FEVER OR PAIN Last Admin: 04/26/16 02:48 Dose: 650 mg Apixaban (Eliquis -) 2.5 mg PO BID [facility] Last Admin: 04/26/16 10:41 Dose: 2.5 mg Bacitracin (Bacitracin -) 1 applic TP Q2D@1000 [facility] Last Admin: 04/26/16 10:42 Dose: 1 applic Benzocaine (Americaine Ointment -) 1 applic [place] PRN PRN PRN Reason: PAIN Bethanechol Chloride (Urecholine -) 5 mg PO TID [facility] Docusate Sodium (Colace -) 100 mg PO TID [facility] Last Admin: 04/26/16 06:12 Dose: 100 mg Folic Acid (Folic Acid -) 1 mg PO DAILY [facility] Last Admin: 04/26/16 10:41 Dose: 1 mg Dextrose (D5w -) 1,000 mls @ 60 mls/hr IV .[id number] [facility] Last Admin: 04/25/16 17:12 Dose: 60 mls/hr Lidocaine (Lidoderm Patch -) 1 patch TP DAILY [facility] Last Admin: 04/26/16 10:41 Dose: 1 patch Metoprolol Succinate (Toprol Xl -) 25 mg PO DAILY [facility] Last Admin: 04/26/16 10:41 Dose: 25 mg Potassium Chloride (K-Dur -) 10 meq PO DAILY [facility] Last Admin: 04/26/16 10:41 Dose: 10 meq Solifenacin (Vesicare -) 5 mg PO DAILY [facility] Last Admin: 04/26/16 10:41 Dose: 5 mg Tamsulosin HCl (Flomax -) 0.4 mg PO DAILY@0830 [facility] Last Admin: 04/26/16 10:41 Dose: 0.4 mg Thiamine HCl (Vitamin B1 Injection -) 200 mg IVPB DAILY [facility] Last Admin: 04/26/16 10:42 Dose: 200 mg A/P Altered Mental Status resolved Hypernatremia/Lactic Acidosis likely related to dehydration Atrial Fibrillation Pleural Effusion resolved r/o Pancreatic Ca h/o Gastric Ca HTN DM BPH - pain control - PO as tolerated - O2 to keep SpO2 >90% - rate controlled on toprol - aspiration precautions - DVT prophylaxis
[2016-04-26] MEDS ORDERED: DEXTROSE 5%-WATER - 1,000 ML IV SCH (12:04)
--- NOTE | 2016-04-26 12:04 | PN ---
Progress Note, Physician History of Present Illness: Pt seen and examined at bedside. He is sitting in a chair. PO intake is mildly improved but is not optimal. He is awake and appears comfortable. - Current Medication List Current Medications: Active Medications Acetaminophen (Tylenol -) 650 mg PO Q4H PRN PRN Reason: FEVER OR PAIN Last Admin: 04/26/16 02:48 Dose: 650 mg Apixaban (Eliquis -) 2.5 mg PO BID [facility] Last Admin: 04/26/16 10:41 Dose: 2.5 mg Bacitracin (Bacitracin -) 1 applic TP Q2D@1000 [facility] Last Admin: 04/26/16 10:42 Dose: 1 applic Benzocaine (Americaine Ointment -) 1 applic [place] PRN PRN PRN Reason: PAIN Bethanechol Chloride (Urecholine -) 5 mg PO TID [facility] Docusate Sodium (Colace -) 100 mg PO TID [facility] Last Admin: 04/26/16 06:12 Dose: 100 mg Folic Acid (Folic Acid -) 1 mg PO DAILY [facility] Last Admin: 04/26/16 10:41 Dose: 1 mg Dextrose (D5w -) 1,000 mls @ 60 mls/hr IV .[id number] [facility] Last Admin: 04/25/16 17:12 Dose: 60 mls/hr Lidocaine (Lidoderm Patch -) 1 patch TP DAILY [facility] Last Admin: 04/26/16 10:41 Dose: 1 patch Metoprolol Succinate (Toprol Xl -) 25 mg PO DAILY [facility] Last Admin: 04/26/16 10:41 Dose: 25 mg Potassium Chloride (K-Dur -) 10 meq PO DAILY [facility] Last Admin: 04/26/16 10:41 Dose: 10 meq Solifenacin (Vesicare -) 5 mg PO DAILY [facility] Last Admin: 04/26/16 10:41 Dose: 5 mg Tamsulosin HCl (Flomax -) 0.4 mg PO DAILY@0830 [facility] Last Admin: 04/26/16 10:41 Dose: 0.4 mg Thiamine HCl (Vitamin B1 Injection -) 200 mg IVPB DAILY [facility] Last Admin: 04/26/16 10:42 Dose: 200 mg - Objective Vital Signs: Vital Signs Temperature 97.9 F 04/26/16 05:55 Pulse Rate 85 04/26/16 05:55 Respiratory Rate 18 04/26/16 05:55 Blood Pressure 113/63 04/26/16 05:55 O2 Sat by Pulse Oximetry (%) 98 04/25/16 21:00 Constitutional: Yes: Calm Eyes: Yes: Conjunctiva Clear HENT: Yes: Atraumatic Neck: Yes: Supple Cardiovascular: Yes: S1, S2 Respiratory: Yes: On Nasal O2 Gastrointestinal: Yes: Soft Genitourinary: Yes: [place] Present Musculoskeletal: Yes: Muscle Weakness Edema: No Integumentary: Yes: Skin Tear Labs: CBC, BMP 04/26/16 07:30 04/26/16 07:30 INR, PTT INR 1.70 (0.82-1.09) H 04/23/16 06:30 Assessment/Plan Current Medications Generic Name Dose Route Start Last Admin Trade Name Freq PRN Reason Stop Dose Admin Acetaminophen 650 mg 04/24/16 19:07 04/26/16 02:48 Tylenol - PO 650 mg Q4H PRN Administration FEVER OR PAIN Apixaban 2.5 mg 04/25/16 22:00 04/26/16 10:41 Eliquis - PO 2.5 mg BID [facility] Administration Bacitracin 1 applic 04/26/16 10:00 04/26/16 10:42 Bacitracin - TP 1 applic Q2D@1000 [facility] Administration Benzocaine 1 applic 04/24/16 19:07 Americaine Ointment - [place] PRN PRN PAIN Bethanechol Chloride 5 mg 04/26/16 14:00 Urecholine - PO TID [facility] Docusate Sodium 100 mg 04/24/16 22:00 04/26/16 06:12 Colace - PO 100 mg TID [facility] Administration Folic Acid 1 mg 04/25/16 10:00 04/26/16 10:41 Folic Acid - PO 1 mg DAILY [facility] Administration Dextrose 1,000 mls @ 60 mls/hr 04/25/16 16:00 04/25/16 17:12 D5w - IV 60 mls/hr .[id number] [facility] Administration Lidocaine 1 patch 04/25/16 10:00 04/26/16 10:41 Lidoderm Patch - TP 1 patch DAILY [facility] Administration Metoprolol Succinate 25 mg 04/25/16 10:00 04/26/16 10:41 Toprol Xl - PO 25 mg DAILY [facility] Administration Potassium Chloride 10 meq 04/25/16 10:00 04/26/16 10:41 K-Dur - PO 10 meq DAILY [facility] Administration Solifenacin 5 mg 04/25/16 10:00 04/26/16 10:41 Vesicare - PO 5 mg DAILY [facility] Administration Tamsulosin HCl 0.4 mg 04/25/16 08:30 04/26/16 10:41 Flomax - PO 0.4 mg DAILY@0830 [facility] Administration Thiamine HCl 200 mg 04/25/16 10:00 04/26/16 10:42 Vitamin B1 Injection - IVPB 200 mg DAILY [facility] Administration Impression 1. Hypernatremia 2. azotemia 3. a-fib 4. plerual effusions 5. HTN 6. DM 7. BPH 8. altered mental status Plan - will decrease rate of fluids further - sodium is improved - repeat labs in am - d/c [place] if possible - will keep HCTZ on hold for now - encourage PO intake Dr Eddy
--- NOTE | 2016-04-26 13:36 | PN ---
Progress Note, Physician History of Present Illness: stable comfortable some cough noted confusion persists - Current Medication List Current Medications: Active Medications Acetaminophen (Tylenol -) 650 mg PO Q4H PRN PRN Reason: FEVER OR PAIN Last Admin: 04/26/16 02:48 Dose: 650 mg Apixaban (Eliquis -) 2.5 mg PO BID [facility] Last Admin: 04/26/16 10:41 Dose: 2.5 mg Bacitracin (Bacitracin -) 1 applic TP Q2D@1000 [facility] Last Admin: 04/26/16 10:42 Dose: 1 applic Benzocaine (Americaine Ointment -) 1 applic [place] PRN PRN PRN Reason: PAIN Bethanechol Chloride (Urecholine -) 5 mg PO TID [facility] Docusate Sodium (Colace -) 100 mg PO TID [facility] Last Admin: 04/26/16 06:12 Dose: 100 mg Folic Acid (Folic Acid -) 1 mg PO DAILY [facility] Last Admin: 04/26/16 10:41 Dose: 1 mg Dextrose (D5w -) 1,000 mls @ 42 mls/hr IV Q24H [facility] Lidocaine (Lidoderm Patch -) 1 patch TP DAILY [facility] Last Admin: 04/26/16 10:41 Dose: 1 patch Metoprolol Succinate (Toprol Xl -) 25 mg PO DAILY [facility] Last Admin: 04/26/16 10:41 Dose: 25 mg Potassium Chloride (K-Dur -) 10 meq PO DAILY [facility] Last Admin: 04/26/16 10:41 Dose: 10 meq Solifenacin (Vesicare -) 5 mg PO DAILY [facility] Last Admin: 04/26/16 10:41 Dose: 5 mg Tamsulosin HCl (Flomax -) 0.4 mg PO DAILY@0830 [facility] Last Admin: 04/26/16 10:41 Dose: 0.4 mg Thiamine HCl (Vitamin B1 Injection -) 200 mg IVPB DAILY [facility] Last Admin: 04/26/16 10:42 Dose: 200 mg - Objective Vital Signs: Vital Signs Temperature 97.9 F 04/26/16 05:55 Pulse Rate 83 04/26/16 09:00 Respiratory Rate 18 04/26/16 09:00 Blood Pressure 100/52 04/26/16 09:00 O2 Sat by Pulse Oximetry (%) 98 04/25/16 21:00 Constitutional: Yes: No Distress, Calm, Other (failure to thrive) Eyes: Yes: Conjunctiva Clear HENT: Yes: Atraumatic Cardiovascular: Yes: Other Respiratory: Yes: Poor Air Entry Gastrointestinal: Yes: Normal Bowel Sounds, Soft Musculoskeletal: Yes: Other Extremities: Yes: Other Integumentary: Yes: Skin Tear Neurological: Yes: Alert, Confusion Labs: CBC, BMP 04/26/16 07:30 04/26/16 07:30 INR, PTT INR 1.70 (0.82-1.09) H 04/23/16 06:30 Assessment/Plan Problem List - Problems (1) Impaction of colon Code(s): K56.49 - OTHER IMPACTION OF INTESTINE (2) A-fib Code(s): I48.91 - UNSPECIFIED ATRIAL FIBRILLATION pneumonia abd pain confusion pleural effusion dehydration plan stable off of abx confusion persists hydration as per renal close monitoring continue monitoring
[2016-04-26] MEDS: BETHANECHOL CHLORIDE 10 MG TABLET PO SCH ×2 (15:41→21:41)
[2016-04-26] MEDS ORDERED: PT OWN MED DRAWER 7, Y5N ONE (21:08)
[2016-04-27] MEDS: BETHANECHOL CHLORIDE 10 MG TABLET PO SCH ×2 (06:37→15:15)
[2016-04-27] MEDS: DOCUSATE SODIUM 100 MG CAPSULE (FP) PO SCH ×2 (06:37→15:17)
[2016-04-27 07:38] LABS: INR 1.82 (0.82-1.09); PROTHROMBIN TIME (PATIENT) 20.3 SEC (9.98-11.88)
[2016-04-27 07:39] LABS: BASOPHIL 1.2 % (0-2.0); EOSINOPHIL 0.8 % (0-4.5); MCH 26.2 pg (25.7-33.7); MCHC 32.7 g/dl (32.0-35.9); MEAN CELL VOLUME 80.2 fl (80-96); MEAN PLT VOLUME 8.8 fl (7.5-11.1); NEUTROPHILS 77.7 % (42.8-82.8); PLATELET COUNT 289 K/MM3 (134-434); RDW 20.2 % (11.9-15.9); WHITE BLOOD COUNT 11.1 K/mm3 (4.0-10.0)
[2016-04-27 08:39] VITALS: BP 105/65
[2016-04-27 08:48] LABS: CALCIUM 8.4 mg/dL (8.5-10.1); CREATININE 0.8 mg/dL (0.7-1.3)
[2016-04-27] MEDS: TAMSULOSIN HCL 0.4 MG CAP.ER.24H (FP) PO SCH (08:52)
[2016-04-27] MEDS ORDERED: PT OWN MED DRAWER 7, Y5N ONE ×2 (09:29→15:13)
[2016-04-27] MEDS: LIDOCAINE 5% TOPICAL PATCH TP SCH (09:30)
[2016-04-27] MEDS: SOLIFENACIN SUCCINATE 5 MG TAB (FP) PO SCH (09:30)
[2016-04-27] MEDS: FOLIC ACID 1 MG TABLET (FP) PO SCH (09:30)
[2016-04-27] MEDS: POTASSIUM CHLORIDE TABS 10 MEQ TABLET.ER (FP) PO SCH (09:30)
[2016-04-27] MEDS: METOPROLOL SUCCINATE 25 MG TAB.SR.24H (FP) PO SCH (09:30)
[2016-04-27] MEDS: APIXABAN 2.5 MG TABLET PO SCH (09:30)
[2016-04-27] MEDS: THIAMINE HCL 200 MG/2 ML VIAL IVPB SCH (09:31)
[2016-04-27] MEDS: ACETAMINOPHEN 325 MG TABLET (FP) PO PRN (10:21)
--- NOTE | 2016-04-27 13:31 | DS ---
Physical Examination Vital Signs: Vital Signs Temperature 98.2 F 04/27/16 08:00 Pulse Rate 85 04/27/16 08:00 Respiratory Rate 18 04/27/16 09:00 Blood Pressure 105/65 04/27/16 08:00 O2 Sat by Pulse Oximetry (%) 97 04/27/16 09:00 Constitutional: Yes: Calm Eyes: Yes: WNL HENT: Yes: WNL Neck: Yes: WNL Cardiovascular: Yes: WNL Respiratory: Yes: WNL Gastrointestinal: Yes: Normal Bowel Sounds (over flow incontinence leg bag) Breast(s): Yes: WNL Musculoskeletal: Yes: Back Pain Extremities: Yes: WNL Edema: No Peripheral Pulses WNL: Yes Integumentary: Yes: Bruising Wound/Incision: Yes: Clean/Dry Neurological: Yes: Other (oms) ...Motor Strength: WNL Psychiatric: Yes: Agitated Labs: CBC, BMP 04/27/16 06:00 04/27/16 06:00 Discharge Summary Reason For Visit: PNEUMONIA Current Active Problems A-fib (Acute) Abdominal pain (Acute) Common bile duct dilatation (Acute) Delirium (Acute) Dementia (Acute) Encephalopathy (Acute) Encephalopathy due to metabolic factor or toxin (Acute) Gastric adenocarcinoma (Acute) Hypernatremia (Acute) Impaction of colon (Acute) Lactic acidosis (Acute) Malnutrition (Acute) Pleural effusion (Acute) Pneumonia (Acute) Condition: Fair - Instructions Referrals: Tung Amador MD [Primary Care Provider] - Disposition: CUSTODIAL FACILITY - Home Medications Comprehensive Discharge Medication List: Ambulatory Orders Metoprolol "Xl" (Sustain Act) [Toprol Xl] 50 mg PO DAILY 08/09/11 Warfarin Na [Coumadin] mg PO DAILY@1800 08/09/11 Metformin HCl 500 mg PO DAILY 04/11/16 Tramadol HCl 50 mg PO TID #21 tablet MDD 3 04/11/16
[2016-04-27 14:31] VITALS: PULSE 88; TEMP 97.5
--- NOTE | 2016-04-27 15:24 | PN ---
Progress Note, Physician History of Present Illness: Pt seen and examined at bedside. He is out of bed to chair. His PO intake is improved. - Current Medication List Current Medications: Active Medications Acetaminophen (Tylenol -) 650 mg PO Q4H PRN PRN Reason: FEVER OR PAIN Last Admin: 04/27/16 10:21 Dose: 650 mg Apixaban (Eliquis -) 2.5 mg PO BID [facility] Last Admin: 04/27/16 09:30 Dose: 2.5 mg Bacitracin (Bacitracin -) 1 applic TP Q2D@1000 [facility] Last Admin: 04/26/16 10:42 Dose: 1 applic Benzocaine (Americaine Ointment -) 1 applic [place] PRN PRN PRN Reason: PAIN Bethanechol Chloride (Urecholine -) 5 mg PO TID [facility] Last Admin: 04/27/16 15:15 Dose: 5 mg Docusate Sodium (Colace -) 100 mg PO TID [facility] Last Admin: 04/27/16 15:17 Dose: Not Given Folic Acid (Folic Acid -) 1 mg PO DAILY [facility] Last Admin: 04/27/16 09:30 Dose: 1 mg Dextrose (D5w -) 1,000 mls @ 42 mls/hr IV Q24H [facility] Last Admin: 04/26/16 15:38 Dose: 42 mls/hr Lidocaine (Lidoderm Patch -) 1 patch TP DAILY [facility] Last Admin: 04/27/16 09:30 Dose: 1 patch Metoprolol Succinate (Toprol Xl -) 25 mg PO DAILY [facility] Last Admin: 04/27/16 09:30 Dose: 25 mg Potassium Chloride (K-Dur -) 10 meq PO DAILY [facility] Last Admin: 04/27/16 09:30 Dose: 10 meq Solifenacin (Vesicare -) 5 mg PO DAILY [facility] Last Admin: 04/27/16 09:30 Dose: 5 mg Tamsulosin HCl (Flomax -) 0.4 mg PO DAILY@0830 [facility] Last Admin: 04/27/16 08:52 Dose: 0.4 mg Thiamine HCl (Vitamin B1 Injection -) 200 mg IVPB DAILY [facility] Last Admin: 04/27/16 09:31 Dose: 200 mg - Objective Vital Signs: Vital Signs Temperature 97.5 F L 04/27/16 14:00 Pulse Rate 88 04/27/16 14:00 Respiratory Rate 20 04/27/16 14:00 Blood Pressure 105/65 04/27/16 08:00 O2 Sat by Pulse Oximetry (%) 97 04/27/16 09:00 Constitutional: Yes: Calm Eyes: Yes: Conjunctiva Clear HENT: Yes: Atraumatic Cardiovascular: Yes: S1, S2 Respiratory: Yes: Diminished Gastrointestinal: Yes: Soft Genitourinary: Yes: WNL Musculoskeletal: Yes: Muscle Weakness Edema: No Neurological: Yes: Oriented Psychiatric: Yes: Oriented Labs: CBC, BMP 04/27/16 06:00 04/27/16 06:00 INR, PTT INR 1.82 (0.82-1.09) H 04/27/16 06:00 Assessment/Plan Current Medications Generic Name Dose Route Start Last Admin Trade Name Freq PRN Reason Stop Dose Admin Acetaminophen 650 mg 04/24/16 19:07 04/27/16 10:21 Tylenol - PO 650 mg Q4H PRN Administration FEVER OR PAIN Apixaban 2.5 mg 04/25/16 22:00 04/27/16 09:30 Eliquis - PO 2.5 mg BID [facility] Administration Bacitracin 1 applic 04/26/16 10:00 04/26/16 10:42 Bacitracin - TP 1 applic Q2D@1000 [facility] Administration Benzocaine 1 applic 04/24/16 19:07 Americaine Ointment - [place] PRN PRN PAIN Bethanechol Chloride 5 mg 04/26/16 14:00 04/27/16 15:15 Urecholine - PO 5 mg TID [facility] Administration Docusate Sodium 100 mg 04/24/16 22:00 04/27/16 15:17 Colace - PO Not Given TID [facility] Folic Acid 1 mg 04/25/16 10:00 04/27/16 09:30 Folic Acid - PO 1 mg DAILY [facility] Administration Dextrose 1,000 mls @ 42 mls/hr 04/26/16 12:04 04/26/16 15:38 D5w - IV 42 mls/hr Q24H [facility] Administration Lidocaine 1 patch 04/25/16 10:00 04/27/16 09:30 Lidoderm Patch - TP 1 patch DAILY [facility] Administration Metoprolol Succinate 25 mg 04/25/16 10:00 04/27/16 09:30 Toprol Xl - PO 25 mg DAILY [facility] Administration Potassium Chloride 10 meq 04/25/16 10:00 04/27/16 09:30 K-Dur - PO 10 meq DAILY [facility] Administration Solifenacin 5 mg 04/25/16 10:00 04/27/16 09:30 Vesicare - PO 5 mg DAILY [facility] Administration Tamsulosin HCl 0.4 mg 04/25/16 08:30 04/27/16 08:52 Flomax - PO 0.4 mg DAILY@0830 [facility] Administration Thiamine HCl 200 mg 04/25/16 10:00 04/27/16 09:31 Vitamin B1 Injection - IVPB 200 mg DAILY [facility] Administration Impression 1. Hypernatremia 2. azotemia 3. a-fib 4. plerual effusions 5. HTN 6. DM 7. BPH 8. altered mental status Plan - renal function is stabilizing - would keep the diuretic on hold for now and evaluate volume status closely - sodium is stable - encourage PO intake - skin care - will keep HCTZ on hold for now - encourage PO intake Dr Eddy
--- NOTE | 2016-04-27 15:45 | PN ---
Progress Note, Physician History of Present Illness: patient stable no new events - Objective Vital Signs: Vital Signs Temperature 97.5 F L 04/27/16 14:00 Pulse Rate 88 04/27/16 14:00 Respiratory Rate 20 04/27/16 14:00 Blood Pressure 105/65 04/27/16 08:00 O2 Sat by Pulse Oximetry (%) 97 04/27/16 09:00 Constitutional: Yes: No Distress, Calm Cardiovascular: Yes: Pulse Irregular Respiratory: Yes: Regular, CTA Bilaterally Gastrointestinal: Yes: Normal Bowel Sounds, Soft Musculoskeletal: Yes: Other Extremities: Yes: Other Integumentary: Yes: Skin Tear Neurological: Yes: Alert Labs: CBC, BMP 04/27/16 06:00 04/27/16 06:00 INR, PTT INR 1.82 (0.82-1.09) H 04/27/16 06:00 Assessment/Plan Problem List - Problems (1) Impaction of colon Code(s): K56.49 - OTHER IMPACTION OF INTESTINE (2) A-fib Code(s): I48.91 - UNSPECIFIED ATRIAL FIBRILLATION pneumonia abd pain confusion pleural effusion dehydration plan stable off of abx looks like patient at his baseline
== END 2016-04-27 15:31 | DRG 388 ==
LOC: JER 10:43 → JERBED 17:18 → J5S 18:45 → JICU 04-23 19:05 → J6S 04-25 05:01
PROVIDERS: ADMIT Family Medicine; ATTEND Family Medicine
DX: K56.49 Other impaction of intestine (principal); J18.9 Pneumonia, unspecified organism; G92 Toxic encephalopathy; E43 Unspecified severe protein-calorie malnutrition; J90 Pleural effusion, not elsewhere classified; E87.0 Hyperosmolality and hypernatremia; Z68.1 Body mass index [BMI] 19.9 or less, adult; E87.2 Acidosis; E11.9 Type 2 diabetes mellitus without complications; I10 Essential (primary) hypertension; I48.91 Unspecified atrial fibrillation; L89.152 Pressure ulcer of sacral region, stage 2; R07.81 Pleurodynia; N39.498 Other specified urinary incontinence; N40.0 Benign prostatic hyperplasia without lower urinary tract symptoms; K83.8 Other specified diseases of biliary tract; R41.0 Disorientation, unspecified; Z85.00 Personal history of malignant neoplasm of unspecified digestive organ; E86.0 Dehydration; F03.90 Unspecified dementia, unspecified severity, without behavioral disturbance, psychotic disturbance, mood disturbance, and anxiety; N31.8 Other neuromuscular dysfunction of bladder; Z74.01 Bed confinement status
CPT/HCPCS: 36415; 36600; 70450-TC; 71010-TC; 71020-TC; 71250-TC; 74177-TC; 74182-TC; 80048; 80053; 80076; 81003; 81015; 82105; 82140; 82378; 82550; 82803; 83036; 83605; 83690; 83735; 84100; 84153; 84443; 84484; 85025; 85610; 86301; 87040; 87086; 93005; 93010; 99283-25; A9576; Q9967

== ENCOUNTER 2016-05-04 09:30 | Inpatient (IN) | payer OTHER ==
--- NOTE | 2016-05-04 10:14 | PDOC ---
History of Present Illness <Tin Calvin - Last Filed: 05/04/16 12:00> - General History Source: Patient, Spouse, Custodial Records Exam Limitations: Language Barrier, Other - History of Present Illness Initial Comments: 05/04/16 12:45 The patient is a 86 year old male from [facility], with a significant past medical history of AFib(on eliquis), stomach cancer( gastrectomy 40 years ago), diabetes, hypertension, and hyperlipidemia, who was sen to the ED for evaluation of lethargy and AMS. [facility], the patient has a recent history of pneumonia and is being treated for hypernatremia. The patient was sent to the ED, because he appeared increasingly lethargic during the past couple of days. As per , the patient has been experiencing diffuse body pain. The reports the patients alert, but confused state is part of his baseline. She states he has decreased appetite. The patient reports difficulty breathing, but denies any chest pain. The denies the patient has experienced any fever, chills, or cough. The denies any nausea, vomiting, diarrhea, or constipation. The patients history is limited due to a language barrier. History may be limited as pt is not a great historian. Allergies: Aspirin Past Surgical History: Cholecystectomy, gastrectomy Social History: Non-smoker. Denies alcohol or drug use. PCP: Dr. Lopez ([phone]) <Guerita Segura - Last Filed: 05/04/16 12:51> - General Stated Complaint: WEAKNESS Time Seen by Provider: 05/04/16 09:35 Past History - Past Medical History Anemia: No Asthma: No Cancer: Yes (stomach) Cardiac Disorders: Yes (ATRIAL FIBRILLATION) CVA: No COPD: No CHF: No Dementia: No Diabetes: Yes GI Disorders: No Disorders: No HTN: Yes Hypercholesterolemia: Yes Liver Disease: No Seizures: No Thyroid Disease: No - Surgical History Abdominal Surgery: Yes Appendectomy: No Cardiac Surgery: No Cholecystectomy: Yes Lung Surgery: No Neurologic Surgery: No Orthopedic Surgery: No - Psycho/Social/Smoking Cessation Hx Suicidal Ideation: No (not able to communicate) Smoking History: Unknown if ever smoked Have you smoked in the past 12 months: No Hx Alcohol Use: No Drug/Substance Use Hx: (unable to communicate) Substance Use Type: None Hx Substance Use Treatment: No <Tin Calvin - Last Filed: 05/04/16 12:00> <Guerita Segura - Last Filed: 05/04/16 12:51> - Past Medical History Allergies/Adverse Reactions: Allergies Allergy/AdvReac Type Severity Reaction Status Date / Time aspirin Allergy Rash Verified 04/15/16 10:47 Home Medications: Ambulatory Orders Metoprolol "Xl" (Sustain Act) [Toprol Xl] 50 mg PO DAILY 08/09/11 Metformin HCl 500 mg PO DAILY 04/11/16 Thiamine HCl [Vitamin B1 Injection -] 200 mg IVPB DAILY #0 vial 04/27/16 Bethanechol Chloride 5 mg PO TID 05/04/16 Eliquis 2.5 mg PO 05/04/16 Flomax 0.4 mg PO ONCE 05/04/16 Vitamin B-1 100 mg PO 05/04/16 Review of Systems - Review of Systems Able to Perform ROS?: No (Unobtainable.) <Guerita Segura - Last Filed: 05/04/16 12:51> *Physical Exam - Vital Signs Last Vital Signs Temp Pulse Resp BP Pulse Ox 98.2 F 98 H 22 99/70 97 05/04/16 09:54 05/04/16 09:54 05/04/16 09:54 05/04/16 09:54 05/04/16 09:54 <Tin Calvin - Last Filed: 05/04/16 12:00> - Vital Signs Last Vital Signs Temp Pulse Resp BP Pulse Ox 98.2 F 98 H 22 99/65 98 05/04/16 09:54 05/04/16 11:39 05/04/16 09:54 05/04/16 11:39 05/04/16 11:39 - Physical Exam Comments: 05/04/16 12:46 GENERAL: The patient is lethargic and generally weak appearing, cachectic appearing HEAD: Normocephalic, atraumatic. EYES: extraocular movements intact, sclera anicteric, conjunctiva clear. ENT: Normal voice, dry mucous membranes. NECK: Normal range of motion, supple LUNGS: course rales in the LE HEART: Irregularly irregular ABDOMEN: Soft, nontender, normoactive bowel sounds. No guarding, no rebound. EXTREMITIES: no edema. NEUROLOGICAL: No facial assymetry,limited exam SKIN: multiple eschars on upper extermities, well healed on the LUE, on RUE/ wrist there is an open wound wihtout active drainage, sacral ulcer <SeguraLivansaul - Last Filed: 05/04/16 12:51> Heart Score/ECG Review - ECG Impressions Comment:: 05/04/16 11:59 Twelve-lead EKG was performed and reviewed by me. There is irregularly irregular rate of 97 LAFB q waves in septal leads <Tin Calvin - Last Filed: 05/04/16 12:00> ED Treatment Course - LABORATORY CBC & Chemistry Diagram: 05/04/16 10:35 05/04/16 10:35 - RADIOLOGY Radiology Studies Ordered: Category Date Time Status HEAD CT WITHOUT CONTRAST [CT] Stat CT Scan 05/04/16 10:07 Ordered CHEST X-RAY PORTABLE* [RAD] Stat Radiology 05/04/16 10:07 Ordered <Tin Calvin - Last Filed: 05/04/16 12:00> - LABORATORY CBC & Chemistry Diagram: 05/04/16 10:35 05/04/16 10:35 - ADDITIONAL ORDERS Additional order review: Laboratory Results 05/04/16 05/04/16 05/04/16 10:50 10:35 10:35 INR 1.79 H Sodium 155 H Potassium 5.8 H D Chloride 119 H D Carbon Dioxide 28 Anion Gap 8 BUN 52 H D Creatinine 1.3 D Creat Clearance w eGFR 52.59 Random Glucose 97 Calcium 8.6 Magnesium 2.7 H D Total Bilirubin 0.6 AST 48 H ALT 19 D Alkaline Phosphatase 137 H Creatine Kinase 69 Troponin I 0.02 Total Protein 6.1 L Albumin 1.7 L D Urine Color Yellow Urine Appearance Slcloudy Urine pH 5.0 Ur Specific [place] 1.021 Urine Protein Negative Urine Glucose (UA) Negative Urine Ketones Negative Urine Blood 1+ H Urine Nitrite Negative Urine Bilirubin Negative Urine Urobilinogen Negative Ur Leukocyte Esterase Trace H Urine RBC 13 Urine WBC 5 Calcium Oxalate Crystal Rare Hyaline Casts 6 Urine Mucus Few 05/04/16 10:35 RBC 4.25 MCV 81.4 MCHC 31.1 L RDW 21.0 H MPV 9.1 Neutrophils % 75.6 Lymphocytes % 21.2 D Monocytes % 2.9 L Eosinophils % 0.2 Basophils % 0.1 - RADIOLOGY Radiograph Interpretation: 05/04/16 12:46 EXAM: CXR INTERPRETED BY: Dr. Sommers REVIEWED BY: Dr. Calvin IMPRESSION: Increased density in the left perihilar and left lower lobe region, suspicious for infiltrates, and suspected left pleural effusion. EXAM: Head CT INTERPRETED BY: Dr. Bui REVIEWED BY: Dr. Calvin IMPRESSION: No evidence of acute intracranial hemorrhage, edema, midline shift, mass effect, or skull fracture. No CT evidence of acute territorial infarction. No interval change in comparison to CT of the brain April 23, 2016. <Guerita Segura - Last Filed: 05/04/16 12:51> Medical Decision Making - Medical Decision Making 05/04/16 10:14 86y M hx of afib on eliquis, diabetes, gastric ca s/p gastrectomy, HL, HTN, recent admission for pna and hypernatremia and discharged to [facility] for rehab on 04/29 sent back to the ED for evaluation of increased lethargy. History is limited from the patient as he appears very week and dehydrated, also with coarse rales on the L lung. Pt on 2L of NC. pt with recent labs showing NA of 150 and pt has been on DW 50/hr - will give pt a bolus of 1/2NS will ck labs will ck CT to r/o intracranial edema/ich will ck cxr to r/o pna wolil reassess likely admission 05/04/16 11:57 labs reviewed noted for hypernatremia to 156 bun elevated to 56, cr o1.6 -- likely dheydartion cxr noted for infiltrate - will otain lateral decutius cxr to r/o effusion vs infiltrate --> if infiltrate will give abx case d/w dr. amador agreed with admission for further mangaement of deyhdration, hypernatremia Case discussed in detail with admitting physician including history, physical exam and ancillary studies. Admitting physician has assumed care for the patient, will follow all pending diagnostics and will complete the evaluation and treatment. <Tin Calvin - Last Filed: 05/04/16 12:00> - Medical Decision Making 05/04/16 12:[address] Tung Amador at 11:30. <Guerita Segura - Last Filed: 05/04/16 12:51> *DC/Admit/Observation/Transfer - Discharge Dispostion Admit: Yes <Tin Calvin - Last Filed: 05/04/16 12:00> - Attestations Scribe Attestion: 05/04/16 12:46 Documentation prepared by Guerita Segura, acting as medical genetics director for Tin Calvin MD. <Guerita Segura - Last Filed: 05/04/16 12:51> Diagnosis at time of Disposition: Hypernatremia A-fib Qualifiers: Atrial fibrillation type: chronic Qualified Code(s): I48.2 - Chronic atrial fibrillation Pneumonia Qualifiers: Pneumonia type: due to unspecified organism Laterality: left Lung location: lower lobe of lung Qualified Code(s): J18.9 - Pneumonia, unspecified organism - Referrals
[2016-05-04] MEDS ORDERED: SODIUM CHLORIDE 0.45% 1,000 ML IV SCH ×2 (10:15→17:15)
[2016-05-04 10:56] LABS: BASOPHIL 0.1 % (0-2.0); EOSINOPHIL 0.2 % (0-4.5); MCH 25.4 pg (25.7-33.7); MCHC 31.1 g/dl (32.0-35.9); MEAN CELL VOLUME 81.4 fl (80-96); MEAN PLT VOLUME 9.1 fl (7.5-11.1); NEUTROPHILS 75.6 % (42.8-82.8); PLATELET COUNT 440 K/MM3 (134-434); WHITE BLOOD COUNT 12.3 K/mm3 (4.0-10.0)
[2016-05-04 11:09] LABS: URINE APPEARANCE SLCLOUDY; URINE BILIRUBIN NEGATIVE (NEGATIVE); URINE COLOR YELLOW; URINE GLUCOSE (UA) NEGATIVE (NEGATIVE); URINE KETONE NEGATIVE (NEGATIVE); URINE NITRITE NEGATIVE (NEGATIVE); URINE PROTEIN NEGATIVE (NEGATIVE); URINE UROBILINOGEN NEGATIVE E.U./dl (0.2-1.0)
[2016-05-04 11:13] LABS: URINE BLOOD 1+ (NEGATIVE); URINE LEUK ESTERASE TRACE (NEGATIVE)
[2016-05-04 11:17] LABS: CALCIUM OXALATE CRYSTALS RARE /hpf (NONE SEEN); URINE HYALINE CAST 6 /lpf; URINE MUCUS FEW; URINE RBC 13 /hpf (0-3); URINE WBC 5 /hpf (3-5)
[2016-05-04 11:28] LABS: INR 1.79 (0.82-1.09); PROTHROMBIN TIME (PATIENT) 19.9 SEC (9.98-11.88)
[2016-05-04 11:37] LABS: ALBUMIN 1.7 g/dl (3.4-5.0); BILIRUBIN,TOTAL 0.6 mg/dL (0.2-1.0); CALCIUM 8.6 mg/dL (8.5-10.1); CREATININE 1.3 mg/dL (0.7-1.3); MAGNESIUM 2.7 mg/dL (1.8-2.4); TOT PROT 6.1 g/dl (6.4-8.2)
[2016-05-04 11:40] LABS: TROPONIN I 0.02 ng/ml (0.00-0.05)
[2016-05-04] MEDS ORDERED: PIPERACILLIN/TAZOB 4.5 GM/100 ML PRE-DOCKED IVPB ONE (12:01)
[2016-05-04] MEDS ORDERED: SODIUM POLYSTYRENE SULFONATE 15 GM/60 ML BOTTLE PO ONE (12:43)
[2016-05-04] MEDS ORDERED: PIPERACILLIN/TAZOB 4.5 GM 100 ML IVPB ONE (12:46)
--- NOTE | 2016-05-04 13:41 | EKG ---
Test Reason : Blood Pressure : / mmHG Vent. Rate : 097 BPM Atrial Rate : 208 BPM P-R Int : 000 ms QRS Dur : 100 ms QT Int : 380 ms P-R-T Axes : 000 -62 052 degrees QTc Int : 482 ms POOR DATA QUALITY, INTERPRETATION MAY BE ADVERSELY AFFECTED ATRIAL FIBRILLATION LEFT ANTERIOR FASCICULAR BLOCK POSSIBLE ANTERIOR INFARCT (CITED ON OR BEFORE 15-APR-2016) ABNORMAL ECG WHEN COMPARED WITH ECG OF 15-APR-2016 18:23, NO SIGNIFICANT CHANGE WAS FOUND Confirmed by GRISELDA SIERRA, NATASHA ([id number]) on 05/04/2016 1:40:55 PM Referred By: Confirmed By:NATASHA VILLALOBOS MD
[2016-05-04] MEDS ORDERED: SODIUM CHLORIDE 1,000 ML IV SCH (14:15)
[2016-05-04 14:32] VITALS: BMI 27.4
[2016-05-04] MEDS ORDERED: SODIUM POLYSTYRENE SULFONATE 15 GM/60 ML BOTTLE ONE (16:08)
[2016-05-04] MEDS: GEMFIBROZIL 600 MG TABLET (FP) PO SCH (17:48)
[2016-05-04] MEDS: APIXABAN 2.5 MG TABLET PO SCH (21:03)
[2016-05-04] MEDS: LORAZEPAM CARPU-JECT 2 MG/ML DISP.SYRIN IM SCH (21:03)
[2016-05-05] MEDS: GEMFIBROZIL 600 MG TABLET (FP) PO SCH (06:44)
[2016-05-05 07:34] LABS: MCH 25.8 pg (25.7-33.7); MEAN CELL VOLUME 80.7 fl (80-96); MEAN PLT VOLUME 8.9 fl (7.5-11.1); PLATELET COUNT 365 K/MM3 (134-434); RDW 20.4 % (11.9-15.9); WHITE BLOOD COUNT 21.1 K/mm3 (4.0-10.0)
[2016-05-05 08:18] LABS: ALBUMIN 1.5 g/dl (3.4-5.0); BILIRUBIN,TOTAL 0.6 mg/dL (0.2-1.0); CALCIUM 7.7 mg/dL (8.5-10.1); CREATININE 1.4 mg/dL (0.7-1.3); TOT PROT 4.9 g/dl (6.4-8.2)
[2016-05-05 08:55] LABS: ACANTHOCYTES 2+; ANISOCYTOSIS 1+; BURR CELLS 4+; FRAGMENTED CELL 2+; HYPOCHROMIA 2+; MICROCYTOSIS 1+; OVALOCYTES 1+; POIKILOCYTOSIS 4+; POLYCHROMASIA 1+; SPHEROCYTE 1+; TARGET CELLS 2+
[2016-05-05] MEDS ORDERED: LEVOFLOXACIN 500 MG TABLET (FP) PO SCH (10:00)
[2016-05-05] MEDS ORDERED: LIDOCAINE 5% TOPICAL PATCH TP SCH (10:00)
[2016-05-05] MEDS ORDERED: PIPERACILLIN/TAZOB 3.375 GM 50 ML IVPB ONE (10:15)
[2016-05-05] MEDS: PANTOPRAZOLE SODIUM 40MG/100 ML IVPB SCH (10:27)
[2016-05-05] MEDS: LIDOCAINE 5% TOPICAL PATCH TP SCH (10:28)
[2016-05-05] MEDS ORDERED: DEXTROSE 5%-WATER - 1,000 ML IV SCH (10:30)
[2016-05-05] MEDS: LORAZEPAM CARPU-JECT 2 MG/ML DISP.SYRIN IM SCH (10:46)
[2016-05-05] MEDS: APIXABAN 2.5 MG TABLET PO SCH (10:46)
--- NOTE | 2016-05-05 10:47 | CONSULT ---
Admitting History and Physical - Primary Care Physician PCP: Tung Amador - Admission History of Present Illness: The patient is a 86 year old male from [facility], with a significant past medical history of AFib(on eliquis), stomach cancer( gastrectomy 40 years ago), diabetes, hypertension, and hyperlipidemia, who was sen to the ED for evaluation of lethargy and AMS. As per senior living records, the patient has a recent history of pneumonia and is being treated for hypernatremia. The patient was sent to the ED, because he appeared increasingly lethargic during the past couple of days. As per , the patient has been experiencing diffuse body pain. The reports the patients alert, but confused state is part of his baseline. She states he has decreased appetite. The patient reports difficulty breathing, but denies any chest pain. The denies the patient has experienced any fever, chills, or cough. The denies any nausea, vomiting, diarrhea, or constipation. The patients history is limited due to a language barrier. History may be limited as pt is not a great historian. Allergies: Aspirin Past Surgical History: Cholecystectomy, gastrectomy Social History: Non-smoker. Denies alcohol or drug use. Per transfer summary, h/o stomach Ca/gastrectomy. Pt was on "soft to chew" and thin liquid at [facility]. History Source: Family Member, Medical Record Limitations to Obtaining History: Clinical Condition, Dementia, Language Barrier - Past Medical History Cardiovascular: Yes: AFIB Pulmonary: Yes: Pneumonia, Other (PLEURAL EFFUSION) Gastrointestinal: Yes: Constipation, Other (total gastrectomy /??? cancer stomach and cholocystectomy) Endocrine: Yes: Diabetes Mellitus Dermatology: Yes: Other (easy brusabiliy) - Smoking History Smoking history: Unknown if ever smoked Have you smoked in the past 12 months: No - Alcohol/Substance Use Hx Alcohol Use: No - Social History ADL: Family Assistance History of Recent Travel: No History - Admission Reason For Visit: ATRIAL FIB,HYPERNATREMIA,PNA - Diagnostics X-ray: Report Reviewed CT Scan: Report Reviewed - General Mental Status: Lethargic (restless, eyes closed,mumbling, pulling at sheets) Ability to Follow Directions: Poor Head/Neck Control: Needs Assist - Hearing Hearing: Normal Speech Evaluation - Communication Primary Language: KENYAN Communication: Yes: Non-Communicable - Speech Production Able to Make Needs Known: Yes: Severely Impaired Intelligibility: Yes: Severely Impaired - Speech Characteristics Voice Loudness: Moderately Soft/Quiet Voice Pitch: Yes: Normal Voice Phonatory-based Quality: Yes: Dysphonia (mild) Speech Pattern: Impaired Speech Clarity: < 25% Nasal Resonance: Normal Articulation: Yes: Imprecise - Language/Auditory Comprehension Observation: Able to respond to yes/no queries: No - Language/Verbal Expression Able to Respond to Simple Queries: Yes: Severely Impaired Able to Communicate Wants and Needs: Yes: Severely Impaired Functional Communication Status: Yes: Severely Impaired - Swallow Evaluation/Bedside Assessment Current Nutritional Intake: NPO Oral Secretions: Yes: WFL Dentition: Yes: Edentulous Facial Symmetry at Rest: Symmetrical Pocketing: Present Bilaterally Timing of Swallow: Absent Recommendations - Speech Evaluation, Impression/Plan Impression: Lethargic,restless, eyes closed,mumbling, pulling at sheets. Attempted PO trial. Accepted very small abount of applesauce with weak bilabial closure. However, no oral pharyngeal transfer and no generation of swallow reflex. Residue removed from oral cavity. - Dysphagia Impressions/Plan Swallowing Skills: Impaired *Silent aspiration: cannot be R/O at bedside - Recommendations Diet Consistency: NPO Liquids: NPO
--- NOTE | 2016-05-05 11:00 | HP ---
Admitting History and Physical - Admission Chief Complaint: pt was in [place] became lethargic History of Present Illness: sacral ulcer no change still lethargic wbc high now calm sleeping History Source: Family Member Limitations to Obtaining History: Dementia - Past Medical History Cardiovascular: Yes: AFIB Pulmonary: Yes: Pneumonia, Other (PLEURAL EFFUSION) Gastrointestinal: Yes: Constipation, Other (total gastrectomy /??? cancer stomach and cholocystectomy) Renal/: Yes: Other (over flow incontinenc) Infectious Disease: Yes: Other (sacral ulcer 11 pneumonia) Musculoskeletal: Yes: Chronic low back pain Endocrine: Yes: Diabetes Mellitus Dermatology: Yes: Other (easy brusabiliy) - Smoking History Smoking history: Unknown if ever smoked Have you smoked in the past 12 months: No - Alcohol/Substance Use Hx Alcohol Use: No - Social History ADL: Family Assistance History of Recent Travel: No Home Medications - Allergies Allergies/Adverse Reactions: Allergies Allergy/AdvReac Type Severity Reaction Status Date / Time aspirin Allergy Rash Verified 04/15/16 10:47 - Home Medications Home Medications: Ambulatory Orders Metoprolol "Xl" (Sustain Act) [Toprol Xl] 50 mg PO DAILY 08/09/11 Metformin HCl 500 mg PO DAILY 04/11/16 Acetaminophen [Tylenol] 650 mg PO Q6H PRN 05/04/16 Bethanechol Chloride 5 mg PO TID 05/04/16 Eliquis 2.5 mg PO BID 05/04/16 Emollient Combination No.60 [Atrapro Hydrogel] 0 gm TP ASDIR 05/04/16 Flomax 0.4 mg PO DAILY 05/04/16 Levofloxacin [Levaquin] 500 mg PO DAILY 05/04/16 Oxycodone HCl/Acetaminophen [Percocet 5-325 mg Tablet] 1 tab PO Q6H PRN Vitamin B-1 100 mg PO DAILY 05/04/16 Family Disease History - Family Disease History Family History: Unremarkable Review of Systems - Review of Systems Constitutional: reports: Lethargy Eyes: reports: No Symptoms HENT: reports: No Symptoms Neck: reports: No Symptoms Cardiovascular: reports: Palpitations Respiratory: reports: No Symptoms Gastrointestinal: reports: Constipation (over flow incontinence) Breasts: reports: No Symptoms Reported Musculoskeletal: reports: Back Pain Integumentary: reports: Bruising Neurological: reports: Confusion, Other (lethargic) Endocrine: reports: No Symptoms Hematology/Lymphatic: reports: No Symptoms Psychiatric: reports: Other (oms) Physical Examination Vital Signs: Vital Signs Temperature 97.8 F 05/05/16 02:00 Pulse Rate 92 H 05/05/16 08:37 Respiratory Rate 18 05/05/16 08:37 Blood Pressure 104/56 05/05/16 08:37 O2 Sat by Pulse Oximetry (%) 93 L 05/04/16 21:00 Constitutional: Yes: Moderate Distress Eyes: Yes: WNL HENT: Yes: WNL Neck: Yes: WNL Cardiovascular: Yes: Pulse Irregular Respiratory: Yes: WNL Gastrointestinal: Yes: WNL ...Rectal Exam: Yes: Deferred ([place] intact) Breast(s): Yes: WNL Musculoskeletal: Yes: Back Pain Extremities: Yes: Erythema, Other (ues skin tear) Edema: No Edema: RUE: Trace Peripheral Pulses WNL: Yes Integumentary: Yes: Bruising Wound/Incision: Yes: Dressing Dry and Intact, Other Neurological: Yes: Other (lethargic) Labs: CBC, BMP 05/05/16 05:35 05/05/16 05:35 Assessment/Plan id darshan to see pt changed all meds iv low dose luvinox cont tx as is spoke to fam regarding dnr
[2016-05-05] MEDS ORDERED: ENOXAPARIN NA (PORCINE) 30 MG/0.3 ML DISP.SYRIN SQ SCH (11:15)
[2016-05-05] MEDS: DEXTROSE 5%-WATER - 1,000 ML IV SCH (12:31)
--- NOTE | 2016-05-05 16:15 | CONSULT ---
Consult Consult Specialty:: Nephrology Reason for Consultation:: hypernatremia - History of Present Illness Chief Complaint: sent in for lethargy and change in mental status History of Present Illness: Pt is an 86 year old male who was recently discharged from the hospital. He was sent back from the [place] for lethargy and a change in mental status. He has history of a-fib, DM, HTN, gastric cancer, and hyperlipidemia. He is lethargic and unable to give history. His family are at bedside. He appears cachectic. Pt has had poor oral intake as per family. - History Source History Provided By: Medical Record - Past Medical History Cardio/Vascular: Yes: AFIB Pulmonary: Yes: Pneumonia, Other (PLEURAL EFFUSION) Gastrointestinal: Yes: Constipation, Other (total gastrectomy /??? cancer stomach and cholocystectomy) Renal/: Yes: Other (over flow incontinenc) Infectious Disease: Yes: Other (sacral ulcer 11 pneumonia) Musculoskeletal: Yes: Chronic low back pain Endocrine: Yes: Diabetes Mellitus Dermatology: Yes: Other (easy brusabiliy) - Alcohol/Substance Use Hx Alcohol Use: No - Smoking History Smoking history: Unknown if ever smoked Have you smoked in the past 12 months: No - Social History ADL: Family Assistance History of Recent Travel: No Home Medications - Allergies Allergies/Adverse Reactions: Allergies Allergy/AdvReac Type Severity Reaction Status Date / Time aspirin Allergy Rash Verified 04/15/16 10:47 - Home Medications Home Medications: Ambulatory Orders Metoprolol "Xl" (Sustain Act) [Toprol Xl] 50 mg PO DAILY 08/09/11 Metformin HCl 500 mg PO DAILY 04/11/16 Acetaminophen [Tylenol] 650 mg PO Q6H PRN 05/04/16 Bethanechol Chloride 5 mg PO TID 05/04/16 Eliquis 2.5 mg PO BID 05/04/16 Emollient Combination No.60 [Atrapro Hydrogel] 0 gm TP ASDIR 05/04/16 Flomax 0.4 mg PO DAILY 05/04/16 Levofloxacin [Levaquin] 500 mg PO DAILY 05/04/16 Oxycodone HCl/Acetaminophen [Percocet 5-325 mg Tablet] 1 tab PO Q6H PRN Vitamin B-1 100 mg PO DAILY 05/04/16 Family Disease History - Family Disease History Family History: Unable to Obtain Review of Systems Unable to obtain ROS, reason: pt condition Physical Exam Vital Signs: Vital Signs Temperature 99.7 F H 05/05/16 14:20 Pulse Rate 102 H 05/05/16 14:20 Respiratory Rate 22 05/05/16 14:20 Blood Pressure 110/69 05/05/16 14:20 O2 Sat by Pulse Oximetry (%) 93 L 05/04/16 21:00 Constitutional: Yes: Anxious Neck: Yes: Supple Cardiovascular: Yes: Tachycardia, S1, S2 Respiratory: Yes: Diminished, On Nasal O2 Gastrointestinal: Yes: Soft Renal/: Yes: Incontinence Musculoskeletal: Yes: Muscle Weakness Edema: Yes Edema: LLE: Trace, RLE: Trace Integumentary: Yes: Skin Tear Neurological: Yes: Confusion, Lethargy Labs: CBC, BMP 05/05/16 05:35 05/05/16 05:35 Laboratory Tests 05/04/16 05/04/16 05/04/16 10:35 10:35 10:50 WBC 12.3 H Hgb 10.8 L Plt Count 440 H D Sodium 155 H Potassium 5.8 H D Chloride 119 H D Carbon Dioxide 28 Anion Gap 8 BUN 52 H D Creatinine 1.3 D Creat Clearance w eGFR 52.59 Lactic Acid Magnesium 2.7 H D Urine Color Yellow Urine Appearance Slcloudy Urine pH 5.0 Ur Specific [place] 1.021 Urine Protein Negative Urine Glucose (UA) Negative Urine Ketones Negative Urine Blood 1+ H Urine Nitrite Negative Urine Bilirubin Negative Urine Urobilinogen Negative Ur Leukocyte Esterase Trace H 05/05/16 05/05/16 05/05/16 05:35 05:35 10:45 WBC 21.1 H D Hgb 9.5 L D Plt Count 365 Sodium 156 H Potassium 4.2 D Chloride 121 H Carbon Dioxide 26 Anion Gap 9 BUN 57 H Creatinine 1.4 H Creat Clearance w eGFR 48.28 Lactic Acid 2.066 H* Magnesium Urine Color Urine Appearance Urine pH Ur Specific [place] Urine Protein Urine Glucose (UA) Urine Ketones Urine Blood Urine Nitrite Urine Bilirubin Urine Urobilinogen Ur Leukocyte Esterase Imaging - Results Chest X-ray: Report Reviewed Problem List - Problems (1) A-fib Code(s): I48.91 - UNSPECIFIED ATRIAL FIBRILLATION Qualifiers: Atrial fibrillation type: chronic Qualified Code(s): I48.2 - Chronic atrial fibrillation (2) Hypernatremia Code(s): E87.0 - HYPEROSMOLALITY AND HYPERNATREMIA (3) Pneumonia Code(s): J18.9 - PNEUMONIA, UNSPECIFIED ORGANISM Qualifiers: Pneumonia type: due to unspecified organism Laterality: left Lung location: lower lobe of lung Qualified Code(s): J18.9 - Pneumonia, unspecified organism (4) Dementia Code(s): F03.90 - UNSPECIFIED DEMENTIA WITHOUT BEHAVIORAL DISTURBANCE (5) Gastric adenocarcinoma Code(s): C16.9 - MALIGNANT NEOPLASM OF STOMACH, UNSPECIFIED (6) Pleural effusion Code(s): J90 - PLEURAL EFFUSION, NOT ELSEWHERE CLASSIFIED Assessment/Plan Current Medications Generic Name Dose Route Start Last Admin Trade Name Freq PRN Reason Stop Dose Admin Enoxaparin Sodium 50 mg 05/05/16 22:00 Lovenox - SQ BID FAB Pantoprazole Sodium 100 mls @ 200 mls/hr 05/05/16 10:00 05/05/16 10:27 Protonix 40mg Ivpb (Pre-Docked) IVPB 200 mls/hr DAILY FAB Administration Piperacillin Sod/Tazobactam Sod 50 mls @ 100 mls/hr 05/05/16 18:00 Zosyn 3.375gm Ivpb (Pre-Docked) IVPB 05/10/16 02:29 Q8H-IV FAB Dextrose 1,000 mls @ 83 mls/hr 05/05/16 10:30 D5w - IV .Q12H3M FAB Levofloxacin 100 mls @ 100 mls/hr 05/11/16 10:48 Levaquin 500 Mg Premixed Ivpb - IVPB 05/11/16 11:47 ONCE ONE Lidocaine 2 patch 05/05/16 10:00 05/05/16 10:28 Lidoderm Patch - TP 2 patch DAILY FAB Administration Impression 1. Hypernatremia 2. NILE 3. a-fib 4. plerual effusions 5. HTN 6. DM 7. BPH 8. altered mental status 9. hyperkalemia Plan - will start d5w - potassium level is improved - monitor renal function - will need an accurate weight to calculate water deficit - repeat labs in am Dr Eddy
[2016-05-05] MEDS ORDERED: PIPERACILLIN/TAZOB 3.375 GM 50 ML IVPB SCH (18:00)
--- NOTE | 2016-05-05 19:14 | CONSULT ---
Consult Consult Specialty:: infectious diseases Referred by:: Reason for Consultation:: pneumonia - History of Present Illness History of Present Illness: Pt is an 86 year old male who was recently discharged from the hospital. He was sent back from the [place] for lethargy and a change in mental status. He has history of a-fib, DM, HTN, gastric cancer, and hyperlipidemia. He is lethargic and unable to give history. patient admitted last time and was treated for multiple medical problems including pna has sever dementia patient is severely demented and with stage 2-3 sacral decubitus ulcer - History Source History Provided By: Medical Record Limitations to Obtaining History: Clinical Condition - Past Medical History Cardio/Vascular: Yes: AFIB Pulmonary: Yes: Pneumonia, Other (PLEURAL EFFUSION) Gastrointestinal: Yes: Constipation, Other (total gastrectomy /??? cancer stomach and cholocystectomy) Renal/: Yes: Other (over flow incontinenc) Infectious Disease: Yes: Other (sacral ulcer 11 pneumonia) Musculoskeletal: Yes: Chronic low back pain Endocrine: Yes: Diabetes Mellitus Dermatology: Yes: Other (easy brusabiliy) - Alcohol/Substance Use Hx Alcohol Use: No - Smoking History Smoking history: Unknown if ever smoked Have you smoked in the past 12 months: No - Social History ADL: Family Assistance History of Recent Travel: No Home Medications - Allergies Allergies/Adverse Reactions: Allergies Allergy/AdvReac Type Severity Reaction Status Date / Time aspirin Allergy Rash Verified 04/15/16 10:47 - Home Medications Home Medications: Ambulatory Orders Metoprolol "Xl" (Sustain Act) [Toprol Xl] 50 mg PO DAILY 08/09/11 Metformin HCl 500 mg PO DAILY 04/11/16 Acetaminophen [Tylenol] 650 mg PO Q6H PRN 05/04/16 Bethanechol Chloride 5 mg PO TID 05/04/16 Eliquis 2.5 mg PO BID 05/04/16 Emollient Combination No.60 [Atrapro Hydrogel] 0 gm TP ASDIR 05/04/16 Flomax 0.4 mg PO DAILY 05/04/16 Levofloxacin [Levaquin] 500 mg PO DAILY 05/04/16 Oxycodone HCl/Acetaminophen [Percocet 5-325 mg Tablet] 1 tab PO Q6H PRN Vitamin B-1 100 mg PO DAILY 05/04/16 Review of Systems Unable to obtain ROS, reason: unable to obtain Physical Exam Vital Signs: Vital Signs Temperature 99.7 F H 05/05/16 14:20 Pulse Rate 102 H 05/05/16 14:20 Respiratory Rate 22 05/05/16 14:20 Blood Pressure 110/69 05/05/16 14:20 O2 Sat by Pulse Oximetry (%) 93 L 05/04/16 21:00 Constitutional: Yes: Cachectic, Other (failure to thrive) Eyes: Yes: Conjunctiva Clear Cardiovascular: Yes: Regular Rate and Rhythm, Tachycardia, Pulse Irregular Respiratory: Yes: Poor Air Entry, Rhonchi Gastrointestinal: Yes: Normal Bowel Sounds, Soft Musculoskeletal: Yes: Other Extremities: Yes: Other Wound/Incision: Yes: Other (stage 2-3 decubitus ulcer) Neurological: Yes: Confusion, Other Psychiatric: Yes: Other Labs: CBC, BMP 05/05/16 05:35 05/05/16 05:35 Imaging - Results Chest X-ray: Report Reviewed, Image Reviewed X-ray: Report Reviewed, Image Reviewed Cat Scan: Report Reviewed, Image Reviewed Assessment/Plan - Problems (1) A-fib Code(s): I48.91 - UNSPECIFIED ATRIAL FIBRILLATION Qualifiers: Atrial fibrillation type: chronic Qualified Code(s): I48.2 - Chronic atrial fibrillation (2) Hypernatremia Code(s): E87.0 - HYPEROSMOLALITY AND HYPERNATREMIA (3) Pneumonia Code(s): J18.9 - PNEUMONIA, UNSPECIFIED ORGANISM Qualifiers: Pneumonia type: due to unspecified organism Laterality: left Lung location: lower lobe of lung Qualified Code(s): J18.9 - Pneumonia, unspecified organism (4) Dementia Code(s): F03.90 - UNSPECIFIED DEMENTIA WITHOUT BEHAVIORAL DISTURBANCE (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
[2016-05-05] MEDS: ENOXAPARIN NA (PORCINE) 60 MG/0.6 ML DISP.SYRIN SQ SCH (22:29)
[2016-05-06] MEDS: PIPERACILLIN/TAZOB 3.375 GM 50 ML IVPB SCH ×3 (02:02→18:19)
[2016-05-06 07:59] LABS: BASOPHIL 0.2 % (0-2.0); EOSINOPHIL 1.4 % (0-4.5); MCH 25.8 pg (25.7-33.7); MCHC 31.9 g/dl (32.0-35.9); MEAN CELL VOLUME 80.9 fl (80-96); MEAN PLT VOLUME 8.9 fl (7.5-11.1); NEUTROPHILS 82.6 % (42.8-82.8); PLATELET COUNT 329 K/MM3 (134-434); RDW 20.1 % (11.9-15.9); WHITE BLOOD COUNT 10.5 K/mm3 (4.0-10.0)
--- NOTE | 2016-05-06 08:17 | CON.GU ---
Consult Consult Specialty:: urology Referred by:: Tung Amador MD Reason for Consultation:: urinary retention - History of Present Illness Chief Complaint: urinary retention - History Source History Provided By: Medical Record, Caregiver Limitations to Obtaining History: Dementia - Past Medical History Cardio/Vascular: Yes: AFIB Pulmonary: Yes: Pneumonia, Other (PLEURAL EFFUSION) Gastrointestinal: Yes: Constipation, Other (total gastrectomy /??? cancer stomach and cholocystectomy) Renal/: Yes: Other (over flow incontinenc) Infectious Disease: Yes: Other (sacral ulcer 11 pneumonia) Musculoskeletal: Yes: Chronic low back pain Endocrine: Yes: Diabetes Mellitus Dermatology: Yes: Other (easy brusabiliy) - Alcohol/Substance Use Hx Alcohol Use: No - Smoking History Smoking history: Unknown if ever smoked Have you smoked in the past 12 months: No - Social History ADL: Family Assistance History of Recent Travel: No Home Medications - Allergies Allergies/Adverse Reactions: Allergies Allergy/AdvReac Type Severity Reaction Status Date / Time aspirin Allergy Rash Verified 04/15/16 10:47 - Home Medications Home Medications: Ambulatory Orders Metoprolol "Xl" (Sustain Act) [Toprol Xl] 50 mg PO DAILY 08/09/11 Metformin HCl 500 mg PO DAILY 04/11/16 Acetaminophen [Tylenol] 650 mg PO Q6H PRN 05/04/16 Bethanechol Chloride 5 mg PO TID 05/04/16 Eliquis 2.5 mg PO BID 05/04/16 Emollient Combination No.60 [Atrapro Hydrogel] 0 gm TP ASDIR 05/04/16 Flomax 0.4 mg PO DAILY 05/04/16 Levofloxacin [Levaquin] 500 mg PO DAILY 05/04/16 Oxycodone HCl/Acetaminophen [Percocet 5-325 mg Tablet] 1 tab PO Q6H PRN Vitamin B-1 100 mg PO DAILY 05/04/16 Physical Exam- Vital Signs: Vital Signs Temperature 97.2 F L 05/06/16 02:00 Pulse Rate 104 H 05/06/16 02:00 Respiratory Rate 18 05/06/16 02:00 Blood Pressure 93/62 05/06/16 02:00 O2 Sat by Pulse Oximetry (%) 98 05/05/16 21:00 Constitutional: Yes: [place], Cachectic Renal/: Yes: WNL Kidneys: Yes: WNL Pelvis: Yes: Bladder Non Palpable Testicles: Yes: WNL Scrotum: Yes: WNL Penis: Yes: WNL (cleveland catheter in place draining clear urine) Prostate Exam: Yes: Deferred Labs: CBC, BMP 05/06/16 05:36 Assessment/Plan Impression BPH Urinary retention managed with cleveland catheter Plan continue suppotive care patient is a DNR and long-term management would require consideration of a suprapubic tube would recommend observation and continue with cleveland catheter
[2016-05-06 08:32] LABS: CALCIUM 8.3 mg/dL (8.5-10.1); CREATININE 1.2 mg/dL (0.7-1.3)
[2016-05-06] MEDS: DEXTROSE 5%-WATER - 1,000 ML IV SCH ×2 (08:35→18:18)
[2016-05-06] MEDS: LIDOCAINE 5% TOPICAL PATCH TP SCH (10:03)
[2016-05-06] MEDS: ENOXAPARIN NA (PORCINE) 60 MG/0.6 ML DISP.SYRIN SQ SCH ×2 (10:03→21:33)
[2016-05-06] MEDS: PANTOPRAZOLE SODIUM 40MG/100 ML IVPB SCH (10:04)
--- NOTE | 2016-05-06 13:17 | PN ---
Progress Note, [employer] PSYCHOLOGIST - Note Progress Note: Lethargy persists. Cntinue NPO, Mouth care. HOB elevated. RD consult
--- NOTE | 2016-05-06 13:31 | PN ---
Progress Note, Physician - Current Medication List Current Medications: Active Medications Enoxaparin Sodium (Lovenox -) 50 mg SQ BID [facility] Last Admin: 05/06/16 10:03 Dose: 50 mg Pantoprazole Sodium (Protonix 40mg Ivpb (Pre-Docked)) 100 mls @ 200 mls/hr IVPB DAILY [facility] Last Admin: 05/06/16 10:04 Dose: 200 mls/hr Levofloxacin (Levaquin 500 Mg Premixed Ivpb -) 100 mls @ 100 mls/hr IVPB ONCE ONE Stop: 05/11/16 11:47 Dextrose (D5w -) 1,000 mls @ 83 mls/hr IV Q12H [facility] Last Admin: 05/06/16 08:35 Dose: Not Given Piperacillin Sod/Tazobactam Sod (Zosyn 3.375gm Ivpb (Pre-Docked)) 50 mls @ 100 mls/hr IVPB Q8H-IV [facility] Last Admin: 05/06/16 10:04 Dose: 100 mls/hr Lidocaine (Lidoderm Patch -) 2 patch TP DAILY [facility] Last Admin: 05/06/16 10:03 Dose: 2 patch - Objective Vital Signs: Vital Signs Temperature 97.2 F L 05/06/16 02:00 Pulse Rate 104 H 05/06/16 02:00 Respiratory Rate 18 05/06/16 02:00 Blood Pressure 93/62 05/06/16 02:00 O2 Sat by Pulse Oximetry (%) 98 05/05/16 21:00 Labs: CBC, BMP 05/06/16 05:36 05/06/16 05:36 INR, PTT INR 1.79 (0.82-1.09) H 05/04/16 10:35 Assessment/Plan pt mental statis n/c vss na no change plan ?/vasc ischemia neuro to see pt card to see pt chk cbc basic in am nutrition ngt vs peg ? if able to remember he had gi sx
--- NOTE | 2016-05-06 13:32 | PN ---
Progress Note, Physician - Current Medication List Current Medications: Active Medications Enoxaparin Sodium (Lovenox -) 50 mg SQ BID [facility] Last Admin: 05/06/16 10:03 Dose: 50 mg Pantoprazole Sodium (Protonix 40mg Ivpb (Pre-Docked)) 100 mls @ 200 mls/hr IVPB DAILY [facility] Last Admin: 05/06/16 10:04 Dose: 200 mls/hr Levofloxacin (Levaquin 500 Mg Premixed Ivpb -) 100 mls @ 100 mls/hr IVPB ONCE ONE Stop: 05/11/16 11:47 Dextrose (D5w -) 1,000 mls @ 83 mls/hr IV Q12H [facility] Last Admin: 05/06/16 08:35 Dose: Not Given Piperacillin Sod/Tazobactam Sod (Zosyn 3.375gm Ivpb (Pre-Docked)) 50 mls @ 100 mls/hr IVPB Q8H-IV [facility] Last Admin: 05/06/16 10:04 Dose: 100 mls/hr Lidocaine (Lidoderm Patch -) 2 patch TP DAILY [facility] Last Admin: 05/06/16 10:03 Dose: 2 patch - Objective Vital Signs: Vital Signs Temperature 97.2 F L 05/06/16 02:00 Pulse Rate 104 H 05/06/16 02:00 Respiratory Rate 18 05/06/16 02:00 Blood Pressure 93/62 05/06/16 02:00 O2 Sat by Pulse Oximetry (%) 98 05/05/16 21:00 Labs: CBC, BMP 05/06/16 05:36 05/06/16 05:36 INR, PTT INR 1.79 (0.82-1.09) H 05/04/16 10:35 Assessment/Plan mental syate n/c vss
--- NOTE | 2016-05-06 15:16 | CON.CARD ---
Cardiology Consult (text) - Consultation Consultation Note: CC: afib 86 yo with h/o a-fib, HTN, HL, DM, gastric cancer s/p gastrectomy, BPH requiring cleveland, dementia, cholecystectomy, sacral ulcer who presents with lethargy and hypernatremia. Recently admitted in April for abdominal pain, hospitalization c/b hypernatremia. Patient lethargic. Unable to understand his speech, mumbling. Unable to get clear history or ROS. Information obtained from prior notes. Per prior notes. + decreased appetite, difficulty breathing, No cp, f/c/s, n/v/d, constipation, cough. PMhx/PSHx: per hpi fam hx: no cardiac history social hx: no current tobacco, etoh or illicits ros: per hpi. Limited 2/2 mental status as mentioned above. Ambulatory Orders Metoprolol "Xl" (Sustain Act) [Toprol Xl] 50 mg PO DAILY 08/09/11 Metformin HCl 500 mg PO DAILY 04/11/16 Acetaminophen [Tylenol] 650 mg PO Q6H PRN 05/04/16 Bethanechol Chloride 5 mg PO TID 05/04/16 Eliquis 2.5 mg PO BID 05/04/16 Emollient Combination No.60 [Atrapro Hydrogel] 0 gm TP ASDIR 05/04/16 Flomax 0.4 mg PO DAILY 05/04/16 Levofloxacin [Levaquin] 500 mg PO DAILY 05/04/16 Oxycodone HCl/Acetaminophen [Percocet 5-325 mg Tablet] 1 tab PO Q6H PRN Vitamin B-1 100 mg PO DAILY 05/04/16 Current Medications Enoxaparin Sodium (Lovenox -) 50 mg SQ BID [facility] Last Admin: 05/06/16 10:03 Dose: 50 mg Pantoprazole Sodium (Protonix 40mg Ivpb (Pre-Docked)) 100 mls @ 200 mls/hr IVPB DAILY [facility] Last Admin: 05/06/16 10:04 Dose: 200 mls/hr Dextrose (D5w -) 1,000 mls @ 83 mls/hr IV Q12H [facility] Last Admin: 05/06/16 08:35 Dose: Not Given Piperacillin Sod/Tazobactam Sod (Zosyn 3.375gm Ivpb (Pre-Docked)) 50 mls @ 100 mls/hr IVPB Q8H-IV [facility] Last Admin: 05/06/16 10:04 Dose: 100 mls/hr Lidocaine (Lidoderm Patch -) 2 patch TP DAILY [facility] Last Admin: 05/06/16 10:03 Dose: 2 patch Vital Signs - 24 hr 05/05/16 05/05/16 05/06/16 17:00 21:00 02:00 Temperature 97.5 F L 97.8 F 97.2 F L Pulse Rate 97 H 102 H 104 H Respiratory 20 20 18 Rate Blood Pressure 103/68 116/48 93/62 O2 Sat by Pulse 98 Oximetry (%) 05/06/16 05/06/16 10:00 14:00 Temperature 98 F Pulse Rate 84 Respiratory 20 20 Rate Blood Pressure 104/66 107/73 O2 Sat by Pulse 97 Oximetry (%) Intake & Output 05/04/16 05/05/16 05/06/16 05/07/16 07:59 07:59 07:59 07:59 Intake Total 1200 963 Output Total 900 850 Balance 300 113 Weight 170 lb NAD, sleepy unable to understand his speech JVD flat, neck supple tachycardic, irregular nl s1, s2 no m/r/g diffuse rhonci, nl effort. + bs soft nt nd ext with dependent edema of feet c/w low albumin not volume overload diminished dp/pt sking with multiple areas of ecchymosis and excoriation no jaundice, diaphoresis. CBC, BMP 05/06/16 05:36 05/06/16 05:36 Laboratory Tests 05/04/16 05/04/16 05/05/16 10:35 10:35 05:35 WBC 21.1 H D INR 1.79 H Sodium 155 H Hemoglobin A1c % Lactic Acid Total Bilirubin AST ALT Alkaline Phosphatase Troponin I 0.02 Total Protein Albumin 05/05/16 05/05/16 05/06/16 05:35 05:35 05:36 WBC INR Sodium 156 H 157 H Hemoglobin A1c % 5.7 D Lactic Acid Total Bilirubin 0.6 AST 24 D ALT 13 D Alkaline Phosphatase 119 H Troponin I Total Protein 4.9 L Albumin 1.5 L 05/06/16 05:36 WBC INR Sodium Hemoglobin A1c % Lactic Acid 2.132 H* Total Bilirubin AST ALT Alkaline Phosphatase Troponin I Total Protein Albumin CXR 05/04: Increased density in the left perihilar and left lower lobe region, suspicious for infiltrates, and suspected left pleural effusion. EKG 05/04: afib 97 bpm. LAFB. ant q's. similar to priors. (poor baseline) tele: afib 90's-100's. occ pvc's. artifact. A/P 86 yo with h/o a-fib, HTN, HL, DM, gastric cancer s/p gastrectomy, BPH requiring cleveland, dementia, cholecystectomy, sacral ulcer who presents with lethargy and hypernatremia. AFib - reasonable rate control given clinical status. currently npo. Can give IV metoprolol prn if develops symptomatic RVR. - on last admission cards c/s discussed with pmd: --> at baseline pt lives with family member and is not highly confused or suffering from significant dementia ; not thought to be fall risk and no h/o pathological bleeding. CHADS-VASC score of 4. Was switched from coumadin to eliquis 2.5 mg bid. -Allergy to ASA - currently npo. Ok to switch to lovenox. Would defer to pmd regarding patient 's overall prognosis (which appears poor) and risk/benefit of ongoing anticoagulation given extensive bruising and ongoing drop in hemoglobin. confusion, encephalopathy -likely toxic-metabolic. head CT unremarkable. Pleural effusion - On last admit, per CXR 04/23 report, pleural fluid had resolved with diuresis. --> subsequently stopped diuresis due to hypernatremia. Now with reaccumulation vs. infiltrate/infection. - Clinically appears most c/w pna. Agree with holding diuresis, and ongoing IVF for hypernatremia, per renal. Abx per ID. hypernatremia: - per renal HTN -currently running low off anti-hypertensives. NPO. Management of possible infection, hypovolemia per pmd, renal. h/o gastric cancer - recent mrcp with dilated CBD, intrahepatic biliary ducts and pancreatic duct. No mass visualized, but could not exclude.
--- NOTE | 2016-05-06 17:11 | PN ---
Progress Note, Physician History of Present Illness: Pt seen and examined at bedside. He has poor PO intake. Pt is lethargic. - Current Medication List Current Medications: Active Medications Enoxaparin Sodium (Lovenox -) 50 mg SQ BID [facility] Last Admin: 05/06/16 10:03 Dose: 50 mg Pantoprazole Sodium (Protonix 40mg Ivpb (Pre-Docked)) 100 mls @ 200 mls/hr IVPB DAILY [facility] Last Admin: 05/06/16 10:04 Dose: 200 mls/hr Dextrose (D5w -) 1,000 mls @ 83 mls/hr IV Q12H [facility] Last Admin: 05/06/16 08:35 Dose: Not Given Piperacillin Sod/Tazobactam Sod (Zosyn 3.375gm Ivpb (Pre-Docked)) 50 mls @ 100 mls/hr IVPB Q8H-IV [facility] Last Admin: 05/06/16 10:04 Dose: 100 mls/hr Lidocaine (Lidoderm Patch -) 2 patch TP DAILY [facility] Last Admin: 05/06/16 10:03 Dose: 2 patch - Objective Vital Signs: Vital Signs Temperature 98 F 05/06/16 10:00 Pulse Rate 84 05/06/16 14:00 Respiratory Rate 20 05/06/16 14:00 Blood Pressure 107/73 05/06/16 14:00 O2 Sat by Pulse Oximetry (%) 97 05/06/16 10:00 Constitutional: Yes: Calm Eyes: Yes: Conjunctiva Clear HENT: Yes: Atraumatic Cardiovascular: Yes: S1, S2 Respiratory: Yes: On Nasal O2, Rhonchi Gastrointestinal: Yes: Soft Genitourinary: Yes: Saldivar Present Musculoskeletal: Yes: Muscle Weakness Edema: No Integumentary: Yes: Skin Tear Neurological: Yes: Lethargy Labs: CBC, BMP 05/06/16 05:36 05/06/16 05:36 INR, PTT INR 1.79 (0.82-1.09) H 05/04/16 10:35 Problem List - Problems (1) A-fib Code(s): I48.91 - UNSPECIFIED ATRIAL FIBRILLATION Qualifiers: Atrial fibrillation type: chronic Qualified Code(s): I48.2 - Chronic atrial fibrillation (2) Hypernatremia Code(s): E87.0 - HYPEROSMOLALITY AND HYPERNATREMIA (3) Pneumonia Code(s): J18.9 - PNEUMONIA, UNSPECIFIED ORGANISM Qualifiers: Pneumonia type: due to unspecified organism Laterality: left Lung location: lower lobe of lung Qualified Code(s): J18.9 - Pneumonia, unspecified organism (4) Dementia Code(s): F03.90 - UNSPECIFIED DEMENTIA WITHOUT BEHAVIORAL DISTURBANCE (5) Gastric adenocarcinoma Code(s): C16.9 - MALIGNANT NEOPLASM OF STOMACH, UNSPECIFIED (6) Pleural effusion Code(s): J90 - PLEURAL EFFUSION, NOT ELSEWHERE CLASSIFIED Assessment/Plan Current Medications Generic Name Dose Route Start Last Admin Trade Name Freq PRN Reason Stop Dose Admin Enoxaparin Sodium 50 mg 05/05/16 22:00 05/06/16 10:03 Lovenox - SQ 50 mg BID [facility] Administration Pantoprazole Sodium 100 mls @ 200 mls/hr 05/05/16 10:00 05/06/16 10:04 Protonix 40mg Ivpb (Pre-Docked) IVPB 200 mls/hr DAILY [facility] Administration Dextrose 1,000 mls @ 83 mls/hr 05/05/16 19:00 05/06/16 08:35 D5w - IV Not Given Q12H [facility] Piperacillin Sod/Tazobactam Sod 50 mls @ 100 mls/hr 05/06/16 02:00 05/06/16 10: 04 Zosyn 3.375gm Ivpb (Pre-Docked) IVPB 100 mls/hr Q8H-IV [facility] Administration Lidocaine 2 patch 05/05/16 10:00 05/06/16 10:03 Lidoderm Patch - TP 2 patch DAILY [facility] Administration Impression 1. Hypernatremia 2. NILE 3. a-fib 4. plerual effusions 5. HTN 6. DM 7. BPH 8. altered mental status 9. hyperkalemia Plan - will increase rate of d5w - repeat labs in am - monitor potassium levels - cont current meds - discussed with medical attending - monitor renal function - cont abx - will need an accurate weight to calculate water deficit Dr Eddy
--- NOTE | 2016-05-06 18:04 | PN ---
Progress Note, Physician History of Present Illness: patient continues to be status quo confused restless - Current Medication List Current Medications: Active Medications Enoxaparin Sodium (Lovenox -) 50 mg SQ BID [facility] Last Admin: 05/06/16 10:03 Dose: 50 mg Pantoprazole Sodium (Protonix 40mg Ivpb (Pre-Docked)) 100 mls @ 200 mls/hr IVPB DAILY [facility] Last Admin: 05/06/16 10:04 Dose: 200 mls/hr Piperacillin Sod/Tazobactam Sod (Zosyn 3.375gm Ivpb (Pre-Docked)) 50 mls @ 100 mls/hr IVPB Q8H-IV [facility] Last Admin: 05/06/16 10:04 Dose: 100 mls/hr Dextrose (D5w -) 1,000 mls @ 125 mls/hr IV Q12H [facility] Lidocaine (Lidoderm Patch -) 2 patch TP DAILY [facility] Last Admin: 05/06/16 10:03 Dose: 2 patch - Objective Vital Signs: Vital Signs Temperature 98 F 05/06/16 10:00 Pulse Rate 84 05/06/16 14:00 Respiratory Rate 20 05/06/16 14:00 Blood Pressure 107/73 05/06/16 14:00 O2 Sat by Pulse Oximetry (%) 97 05/06/16 10:00 Constitutional: Yes: Calm, Mild Distress Cardiovascular: Yes: Regular Rate and Rhythm, Pulse Irregular Respiratory: Yes: Poor Air Entry, Rhonchi Gastrointestinal: Yes: Normal Bowel Sounds, Soft Musculoskeletal: Yes: Other Extremities: Yes: Other Wound/Incision: Yes: Other (decubitus ulcer) Neurological: Yes: Confusion, Other (dementia) Psychiatric: Yes: Other Labs: CBC, BMP 05/06/16 05:36 05/06/16 05:36 INR, PTT INR 1.79 (0.82-1.09) H 05/04/16 10:35 Assessment/Plan - Problems (1) A-fib Code(s): I48.91 - UNSPECIFIED ATRIAL FIBRILLATION Qualifiers: Atrial fibrillation type: chronic Qualified Code(s): I48.2 - Chronic atrial fibrillation (2) Hypernatremia Code(s): E87.0 - HYPEROSMOLALITY AND HYPERNATREMIA (3) Pneumonia Code(s): J18.9 - PNEUMONIA, UNSPECIFIED ORGANISM Qualifiers: Pneumonia type: due to unspecified organism Laterality: left Lung location: lower lobe of lung Qualified Code(s): J18.9 - Pneumonia, unspecified organism (4) Dementia Code(s): F03.90 - UNSPECIFIED DEMENTIA WITHOUT BEHAVIORAL DISTURBANCE (5) Gastric adenocarcinoma Code(s): C16.9 - MALIGNANT NEOPLASM OF STOMACH, UNSPECIFIED (6) Pleural effusion Code(s): J90 - PLEURAL EFFUSION, NOT ELSEWHERE CLASSIFIED Impression NILE a-fib plerual effusions HTN DM BPH altered mental status pna decubitus ulcer leukocytosis wbc trending down plan continue zosyn will cover lungs and ulcer nephro on case continue supportive mgmt continue to monitor wbc wound care
[2016-05-06] MEDS ORDERED: KETOROLAC TROMETHAMINE 30 MG/1 ML VIAL IM ONE (18:30)
--- NOTE | 2016-05-06 18:43 | CON.NEURO ---
Consult Consult Specialty:: Neurology - History of Present Illness Chief Complaint: altered mental state History of Present Illness: 86 year old male s/p recently discharged from the hospital (04/19) ; re presents from [place] for lethargy and a change in mental status. HX a-fib, DM, HTN, gastric cancer, and hyperlipidemia. PT unable to give HX- no family by bedside, appears cachectic and decondtioned ; only moans elevated WBC--though this is normalizing, hypernatremic, no sig change on Repeat HD CT . - History Source History Provided By: Medical Record - Past Medical History Cardio/Vascular: Yes: AFIB Pulmonary: Yes: Pneumonia, Other (PLEURAL EFFUSION) Gastrointestinal: Yes: Constipation, Other (total gastrectomy /??? cancer stomach and cholocystectomy) Renal/: Yes: Other (over flow incontinenc) Infectious Disease: Yes: Other (sacral ulcer 11 pneumonia) Musculoskeletal: Yes: Chronic low back pain Endocrine: Yes: Diabetes Mellitus Dermatology: Yes: Other (easy brusabiliy) - Alcohol/Substance Use Hx Alcohol Use: No - Smoking History Smoking history: Unknown if ever smoked Have you smoked in the past 12 months: No - Social History ADL: Family Assistance History of Recent Travel: No Home Medications - Allergies Allergies/Adverse Reactions: Allergies Allergy/AdvReac Type Severity Reaction Status Date / Time aspirin Allergy Rash Verified 04/15/16 10:47 - Home Medications Home Medications: Ambulatory Orders Metoprolol "Xl" (Sustain Act) [Toprol Xl] 50 mg PO DAILY 08/09/11 Metformin HCl 500 mg PO DAILY 04/11/16 Acetaminophen [Tylenol] 650 mg PO Q6H PRN 05/04/16 Bethanechol Chloride 5 mg PO TID 05/04/16 Eliquis 2.5 mg PO BID 05/04/16 Emollient Combination No.60 [Atrapro Hydrogel] 0 gm TP ASDIR 05/04/16 Flomax 0.4 mg PO DAILY 05/04/16 Levofloxacin [Levaquin] 500 mg PO DAILY 05/04/16 Oxycodone HCl/Acetaminophen [Percocet 5-325 mg Tablet] 1 tab PO Q6H PRN Vitamin B-1 100 mg PO DAILY 05/04/16 Physical Exam-Neuro Vital Signs: Vital Signs Temperature 98 F 05/06/16 10:00 Pulse Rate 84 05/06/16 14:00 Respiratory Rate 20 05/06/16 14:00 Blood Pressure 107/73 05/06/16 14:00 O2 Sat by Pulse Oximetry (%) 97 05/06/16 10:00 Neck: Yes: Rigid (neck stiffness) Labs: CBC, BMP 05/06/16 05:36 05/06/16 05:36 INR, PTT INR 1.79 (0.82-1.09) H 05/04/16 10:35 - Neuro Exam Level Of Consciousness: Yes: Stuporous (arousable , though only moans, not following commands, eyes closed, temporal wasting , BL arms inc tone, unable to do strength testing, though appaers to have foot drop R >>L;edema in distal LE ) Imaging - Results Cat Scan: Report Reviewed Problem List - Problems (1) A-fib Code(s): I48.91 - UNSPECIFIED ATRIAL FIBRILLATION Qualifiers: Atrial fibrillation type: chronic Qualified Code(s): I48.2 - Chronic atrial fibrillation (2) Hypernatremia Code(s): E87.0 - HYPEROSMOLALITY AND HYPERNATREMIA (3) Pneumonia Code(s): J18.9 - PNEUMONIA, UNSPECIFIED ORGANISM Qualifiers: Pneumonia type: due to unspecified organism Laterality: left Lung location: lower lobe of lung Qualified Code(s): J18.9 - Pneumonia, unspecified organism (4) Dementia Code(s): F03.90 - UNSPECIFIED DEMENTIA WITHOUT BEHAVIORAL DISTURBANCE (5) Encephalopathy Code(s): G93.40 - ENCEPHALOPATHY, UNSPECIFIED (6) Malnutrition Code(s): E46 - UNSPECIFIED PROTEIN-CALORIE MALNUTRITION Assessment/Plan Multifactorial encephalopathy with progressive dementia with cachexia -cachectic state with poor oral intake/hypernatremic--metabolic / nutritional status contributing to generalized deconditioning poor prognosis given overall function and recurrent Delirium - fluctuating WBC , ? underlying source, PNA, on ABX and WBC now trending down; meningitis not likely no clinical evidence to suggest seizure - repeat brain imaging would not likely change his prognosis - hypernatremia/NILE from poor nutritional state ; ? if family agrees with alternative means nutrition -no family by bedside though as per nurse discussion of hospice was brought up; he appears to have global cognitive dysfunction and likely no likely return to functional baseline agree that hospice /palliative care may the most feasible option for him to remain comfortable during this time. comfort measures Dr Huynh [phone]
--- NOTE | 2016-05-06 19:18 | CONSULT ---
Consult - text type - Consultation Consultation Note: Addendum : extensive phone conversation with daughter, Peggy; she spoke to palliative care, re options earlier in day agreed that we would continue IV hydration and ABX over weekend and re-assess on monday family does not want PEG will get MRI BRAIN in interim to verify new embolic events cont to follow Dr Huynh
[2016-05-06] MEDS ORDERED: LORAZEPAM CARPU-JECT 2 MG/ML DISP.SYRIN ONE (21:06)
[2016-05-06] MEDS ORDERED: LORAZEPAM CARPU-JECT 2 MG/ML DISP.SYRIN IVPUSH PRN ×2 (21:12→21:19)
[2016-05-07] MEDS: PIPERACILLIN/TAZOB 3.375 GM 50 ML IVPB SCH ×2 (02:51→10:20)
[2016-05-07] MEDS: DEXTROSE 5%-WATER - 1,000 ML IV SCH ×2 (05:48→18:06)
[2016-05-07 07:55] LABS: BASOPHIL 0.5 % (0-2.0); EOSINOPHIL 3.1 % (0-4.5); MCH 25.9 pg (25.7-33.7); MEAN PLT VOLUME 8.7 fl (7.5-11.1); NEUTROPHILS 74.1 % (42.8-82.8); PLATELET COUNT 206 K/MM3 (134-434); RDW 20.3 % (11.9-15.9); WHITE BLOOD COUNT 6.8 K/mm3 (4.0-10.0)
[2016-05-07 08:20] LABS: CALCIUM 7.9 mg/dL (8.5-10.1); CREATININE 1.2 mg/dL (0.7-1.3)
[2016-05-07] MEDS ORDERED: PHYTONADIONE 10 MG/1 ML AMP IM ONE (09:42)
--- NOTE | 2016-05-07 10:03 | PN ---
Progress Note, Physician History of Present Illness: 05/06/16 86 year old male s/p recently discharged from the hospital (04/19) ; re presents from [place] for lethargy and a change in mental status. HX a-fib, DM, HTN, gastric cancer, and hyperlipidemia. PT unable to give HX- no family by bedside, appears cachectic and decondtioned ; only moans elevated WBC--though this is normalizing, hypernatremic, no sig change on Repeat HD CT FU : overnight agitated and given ATIvan . skin breakdown , oozing from some sites and lovenox was held. moaning, nonverbal - Current Medication List Current Medications: Active Medications Enoxaparin Sodium (Lovenox -) 50 mg SQ BID [facility] Last Admin: 05/06/16 21:33 Dose: Not Given Pantoprazole Sodium (Protonix 40mg Ivpb (Pre-Docked)) 100 mls @ 200 mls/hr IVPB DAILY [facility] Last Admin: 05/06/16 10:04 Dose: 200 mls/hr Piperacillin Sod/Tazobactam Sod (Zosyn 3.375gm Ivpb (Pre-Docked)) 50 mls @ 100 mls/hr IVPB Q8H-IV [facility] Last Admin: 05/07/16 02:51 Dose: 100 mls/hr Dextrose (D5w -) 1,000 mls @ 125 mls/hr IV Q12H [facility] Last Admin: 05/07/16 05:48 Dose: 125 mls/hr Lidocaine (Lidoderm Patch -) 2 patch TP DAILY [facility] Last Admin: 05/06/16 10:03 Dose: 2 patch Lorazepam (Ativan Injection -) 1 mg IVPUSH Q12H PRN Potassium Chloride (Potassium Chloride 10 Meq Premix Ivpb -) 10 meq IVPB Q1H [facility] Stop: 05/07/16 10:42 - Objective Vital Signs: Vital Signs Temperature 97.0 F L 05/07/16 02:27 Pulse Rate 78 05/07/16 02:27 Respiratory Rate 20 05/07/16 02:27 Blood Pressure 101/60 05/07/16 02:27 O2 Sat by Pulse Oximetry (%) 96 05/06/16 21:00 Constitutional: Yes: Cachectic Respiratory: Yes: Other (dec BS, though no clear signs of overload) Neurological: Yes: Other (moaning and nonverbal, not following requests, distal weakness , plantars down wrapped exe bc of skin breakdown [place] in place) Labs: CBC, BMP 05/07/16 05:55 05/07/16 05:55 INR, PTT INR 1.79 (0.82-1.09) H 05/04/16 10:35 Problem List - Problems (1) A-fib Code(s): I48.91 - UNSPECIFIED ATRIAL FIBRILLATION Qualifiers: Atrial fibrillation type: chronic Qualified Code(s): I48.2 - Chronic atrial fibrillation (2) Hypernatremia Code(s): E87.0 - HYPEROSMOLALITY AND HYPERNATREMIA (3) Pneumonia Code(s): J18.9 - PNEUMONIA, UNSPECIFIED ORGANISM Qualifiers: Pneumonia type: due to unspecified organism Laterality: left Lung location: lower lobe of lung Qualified Code(s): J18.9 - Pneumonia, unspecified organism (4) Dementia Code(s): F03.90 - UNSPECIFIED DEMENTIA WITHOUT BEHAVIORAL DISTURBANCE (5) Encephalopathy Code(s): G93.40 - ENCEPHALOPATHY, UNSPECIFIED (6) Malnutrition Code(s): E46 - UNSPECIFIED PROTEIN-CALORIE MALNUTRITION Assessment/Plan Multifactorial encephalopathy with progressive dementia with cachexia -cachectic state with poor oral intake/hypernatremic--metabolic / nutritional status contributing to severe generalized deconditioning poor prognosis given overall function and recurrent Delirium - repeat brain imaging would not likely change his prognosis; will reasses again - hypernatremia/NILE from poor nutritional state ; no PEG as per family - lovenox on hold given skin breakdown - fluid manangement, keep HOB >30 degrees, high ASP risk - palliative discussion for next week Dr Huynh [phone]
[2016-05-07] MEDS: LIDOCAINE 5% TOPICAL PATCH TP SCH (10:19)
[2016-05-07] MEDS: PANTOPRAZOLE SODIUM 40MG/100 ML IVPB SCH (10:20)
[2016-05-07] MEDS: ENOXAPARIN NA (PORCINE) 60 MG/0.6 ML DISP.SYRIN SQ SCH (10:20)
[2016-05-07] MEDS ORDERED: POTASSIUM CHLORIDE 10 MEQ PREMIX IVPB (POTASSIUM RIDER) IVPB SCH (11:00)
[2016-05-07] MEDS: POTASSIUM CHLORIDE 10 MEQ PREMIX IVPB (POTASSIUM RIDER) IVPB SCH (11:02)
[2016-05-07] MEDS: KCL 10 MEQ IVPB 100 ML IVPB SCH ×2 (11:26→11:30)
[2016-05-07] MEDS ORDERED: morphine CARPU-JECT 2 MG/1 ML DISP.SYRIN IVPUSH PRN ×2 (11:53→11:54)
--- NOTE | 2016-05-07 11:53 | PN ---
Progress Note, Physician - Current Medication List Current Medications: Active Medications Dextrose (D5w -) 1,000 mls @ 125 mls/hr IV Q12H [facility] Last Admin: 05/07/16 05:48 Dose: 125 mls/hr Potassium Chloride (Potassium Chloride 10 Meq Premix Ivpb -) 100 mls @ 100 mls/ hr IVPB Q1H [facility] Stop: 05/07/16 13:14 Last Admin: 05/07/16 11:30 Dose: Not Given Lidocaine (Lidoderm Patch -) 2 patch TP DAILY [facility] Last Admin: 05/07/16 10:19 Dose: 2 patch - Objective Vital Signs: Vital Signs Temperature 97.0 F L 05/07/16 02:27 Pulse Rate 78 05/07/16 02:27 Respiratory Rate 20 05/07/16 02:27 Blood Pressure 101/60 05/07/16 02:27 O2 Sat by Pulse Oximetry (%) 96 05/06/16 21:00 Labs: CBC, BMP 05/07/16 05:55 05/07/16 05:55 INR, PTT INR 1.79 (0.82-1.09) H 05/04/16 10:35 Assessment/Plan family reqesting to stop all meds vss plan all meds stopped comfort care iv pain control waiting paliative care to take over no scans or procedures dnr dni implimented
--- NOTE | 2016-05-07 13:00 | PN ---
Progress Note (short form) - Note Progress Note: CC: afib S: agitation overnight. + bleeding, lovenox stopped. spoke with and will be pursuing comfort care. Current Medications Dextrose (D5w -) 1,000 mls @ 125 mls/hr IV Q12H [facility] Last Admin: 05/07/16 05:48 Dose: 125 mls/hr Potassium Chloride (Potassium Chloride 10 Meq Premix Ivpb -) 100 mls @ 100 mls/ hr IVPB Q1H [facility] Stop: 05/07/16 13:14 Last Admin: 05/07/16 11:30 Dose: Not Given Lidocaine (Lidoderm Patch -) 2 patch TP DAILY [facility] Last Admin: 05/07/16 10:19 Dose: 2 patch Morphine Sulfate (Morphine Injection -) 1 mg IVPUSH Q6H PRN PRN Reason: PAIN Morphine Sulfate (Morphine Injection -) 1 mg IVPUSH Q8H PRN PRN Reason: PAIN Morphine Sulfate (Morphine Injection -) 1 mg IVPUSH Q4H PRN PRN Reason: PAIN Stop: 05/14/16 07:54 Vital Signs - 24 hr 05/06/16 05/06/16 05/06/16 14:00 18:00 20:00 Temperature 98.1 F Pulse Rate 84 94 H 88 Respiratory 20 20 24 Rate Blood Pressure 107/73 119/63 95/68 O2 Sat by Pulse Oximetry (%) 05/06/16 05/07/16 21:00 02:27 Temperature 97.0 F L Pulse Rate 78 Respiratory 20 Rate Blood Pressure 101/60 O2 Sat by Pulse 96 Oximetry (%) Intake & Output 05/05/16 05/06/16 05/07/16 05/08/16 07:59 07:59 07:59 07:59 Intake Total 4536 253 0089 Output Total 900 850 Balance 519 005 8791 Weight 170 lb NAD, sleepy unable to understand his speech JVD flat, neck supple tachycardic, irregular nl s1, s2 no m/r/g diffuse rhonci, nl effort. + bs soft nt nd ext with dependent edema of feet c/w low albumin not volume overload diminished dp/pt sking with multiple areas of ecchymosis and excoriation no jaundice, diaphoresis. CBC, BMP 05/07/16 05:55 05/07/16 05:55 CXR 2/: Increased density in the left perihilar and left lower lobe region, suspicious for infiltrates, and suspected left pleural effusion. EKG 05/04: afib 97 bpm. LAFB. ant q's. similar to priors. (poor baseline) prior tele: afib 90's-100's. occ pvc's. artifact. A/P 86 yo with h/o a-fib, HTN, HL, DM, gastric cancer s/p gastrectomy, BPH requiring [place], dementia, cholecystectomy, sacral ulcer who presents with lethargy and hypernatremia. AFib - reasonable rate control given clinical status. currently npo. - on last admission cards c/s discussed with pmd: --> at baseline pt lives with family member and is not highly confused or suffering from significant dementia ; not thought to be fall risk and no h/o pathological bleeding. CHADS-VASC score of 4. Was switched from coumadin to eliquis 2.5 mg bid. -Allergy to ASA - NPO on this admission so initially AC with lovenox which has now been stopped by pmd after weighing risk/benefit of ongoing anticoagulation given extensive bruising and ongoing drop in hemoglobin and overall prognosis. --> pursuing comfort care confusion, encephalopathy -likely toxic-metabolic. head CT unremarkable. Pleural effusion - On last admit, per CXR 04/23 report, pleural fluid had resolved with diuresis. --> subsequently stopped diuresis due to hypernatremia. Now with reaccumulation vs. infiltrate/infection. - Clinically appears most c/w pna. Held diuresis,and given IVF for hypernatremia, per renal. Abx per ID. --> Now stopped (GOC) hypernatremia: - improved on IVF HTN -currently running low off anti-hypertensives. NPO. No further interventions per updated goals of care. h/o gastric cancer - recent mrcp with dilated CBD, intrahepatic biliary ducts and pancreatic duct. No mass visualized, but could not exclude.
[2016-05-07] MEDS: morphine CARPU-JECT 2 MG/1 ML DISP.SYRIN IVPUSH PRN ×2 (15:06→20:00)
--- NOTE | 2016-05-07 17:31 | PN ---
Progress Note, Physician History of Present Illness: Pt seen and examined at bedside. He remains lethargic. He responds to tactile stimuli. - Current Medication List Current Medications: Active Medications Dextrose (D5w -) 1,000 mls @ 125 mls/hr IV Q12H [facility] Last Admin: 05/07/16 05:48 Dose: 125 mls/hr Lidocaine (Lidoderm Patch -) 2 patch TP DAILY [facility] Last Admin: 05/07/16 10:19 Dose: 2 patch Morphine Sulfate (Morphine Injection -) 1 mg IVPUSH Q6H PRN PRN Reason: PAIN Last Admin: 05/07/16 15:06 Dose: 1 mg Morphine Sulfate (Morphine Injection -) 1 mg IVPUSH Q8H PRN PRN Reason: PAIN Morphine Sulfate (Morphine Injection -) 1 mg IVPUSH Q4H PRN PRN Reason: PAIN Stop: 05/14/16 07:54 - Objective Vital Signs: Vital Signs Temperature 98.4 F 05/07/16 14:25 Pulse Rate 75 05/07/16 14:25 Respiratory Rate 18 05/07/16 14:25 Blood Pressure 105/65 05/07/16 14:25 O2 Sat by Pulse Oximetry (%) 96 05/06/16 21:00 Constitutional: Yes: Calm Eyes: Yes: Conjunctiva Clear HENT: Yes: Atraumatic Neck: Yes: Supple Cardiovascular: Yes: S1, S2 Respiratory: Yes: CTA Bilaterally Gastrointestinal: Yes: Normal Bowel Sounds, Soft Genitourinary: Yes: Saldivar Present Musculoskeletal: Yes: Muscle Weakness Edema: No Integumentary: Yes: Skin Tear Neurological: Yes: Lethargy Labs: CBC, BMP 05/07/16 05:55 05/07/16 05:55 INR, PTT INR 1.79 (0.82-1.09) H 05/04/16 10:35 Problem List - Problems (1) A-fib Code(s): I48.91 - UNSPECIFIED ATRIAL FIBRILLATION Qualifiers: Atrial fibrillation type: chronic Qualified Code(s): I48.2 - Chronic atrial fibrillation (2) Hypernatremia Code(s): E87.0 - HYPEROSMOLALITY AND HYPERNATREMIA (3) Pneumonia Code(s): J18.9 - PNEUMONIA, UNSPECIFIED ORGANISM Qualifiers: Pneumonia type: due to unspecified organism Laterality: left Lung location: lower lobe of lung Qualified Code(s): J18.9 - Pneumonia, unspecified organism (4) Dementia Code(s): F03.90 - UNSPECIFIED DEMENTIA WITHOUT BEHAVIORAL DISTURBANCE (5) Gastric adenocarcinoma Code(s): C16.9 - MALIGNANT NEOPLASM OF STOMACH, UNSPECIFIED (6) Pleural effusion Code(s): J90 - PLEURAL EFFUSION, NOT ELSEWHERE CLASSIFIED Assessment/Plan Current Medications Generic Name Dose Route Start Last Admin Trade Name Freq PRN Reason Stop Dose Admin Dextrose 1,000 mls @ 125 mls/hr 05/06/16 17:11 05/07/16 05:48 D5w - IV 125 mls/hr Q12H [facility] Administration Lidocaine 2 patch 05/05/16 10:00 05/07/16 10:19 Lidoderm Patch - TP 2 patch DAILY [facility] Administration Morphine Sulfate 1 mg 05/07/16 11:53 05/07/16 15:06 Morphine Injection - IVPUSH 1 mg Q6H PRN Administration PAIN Morphine Sulfate 1 mg 05/07/16 11:54 Morphine Injection - IVPUSH Q8H PRN PAIN Morphine Sulfate 1 mg 05/07/16 11:53 Morphine Injection - IVPUSH 05/14/16 07:54 Q4H PRN PAIN Impression 1. Hypernatremia 2. NILE 3. a-fib 4. plerual effusions 5. HTN 6. DM 7. BPH 8. altered mental status 9. hyperkalemia Plan - labs reviewed - sodium is improving - family have requested comfort care - will be on standby - will follow PRN - discussed with medical team Dr Eddy
--- NOTE | 2016-05-07 18:21 | PN ---
Progress Note, Physician History of Present Illness: patient has detoriated not improving - Current Medication List Current Medications: Active Medications Dextrose (D5w -) 1,000 mls @ 125 mls/hr IV Q12H [facility] Last Admin: 05/07/16 18:06 Dose: 125 mls/hr Lidocaine (Lidoderm Patch -) 2 patch TP DAILY [facility] Last Admin: 05/07/16 10:19 Dose: 2 patch Morphine Sulfate (Morphine Injection -) 1 mg IVPUSH Q6H PRN PRN Reason: PAIN Last Admin: 05/07/16 15:06 Dose: 1 mg Morphine Sulfate (Morphine Injection -) 1 mg IVPUSH Q8H PRN PRN Reason: PAIN Morphine Sulfate (Morphine Injection -) 1 mg IVPUSH Q4H PRN PRN Reason: PAIN Stop: 05/14/16 07:54 - Objective Vital Signs: Vital Signs Temperature 98.4 F 05/07/16 14:25 Pulse Rate 75 05/07/16 14:25 Respiratory Rate 18 05/07/16 14:25 Blood Pressure 105/65 05/07/16 14:25 O2 Sat by Pulse Oximetry (%) 96 05/06/16 21:00 Constitutional: Yes: Calm, Other Cardiovascular: Yes: Regular Rate and Rhythm Respiratory: Yes: Regular, Poor Air Entry, Rhonchi Gastrointestinal: Yes: Normal Bowel Sounds, Soft Wound/Incision: Yes: Other (decubitus ulcer) Neurological: Yes: Confusion, Other Labs: CBC, BMP 05/07/16 05:55 05/07/16 05:55 INR, PTT INR 1.79 (0.82-1.09) H 05/04/16 10:35 Assessment/Plan - Problems (1) A-fib Code(s): I48.91 - UNSPECIFIED ATRIAL FIBRILLATION Qualifiers: Atrial fibrillation type: chronic Qualified Code(s): I48.2 - Chronic atrial fibrillation (2) Hypernatremia Code(s): E87.0 - HYPEROSMOLALITY AND HYPERNATREMIA (3) Pneumonia Code(s): J18.9 - PNEUMONIA, UNSPECIFIED ORGANISM Qualifiers: Pneumonia type: due to unspecified organism Laterality: left Lung location: lower lobe of lung Qualified Code(s): J18.9 - Pneumonia, unspecified organism (4) Dementia Code(s): F03.90 - UNSPECIFIED DEMENTIA WITHOUT BEHAVIORAL DISTURBANCE (5) Gastric adenocarcinoma Code(s): C16.9 - MALIGNANT NEOPLASM OF STOMACH, UNSPECIFIED (6) Pleural effusion Code(s): J90 - PLEURAL EFFUSION, NOT ELSEWHERE CLASSIFIED Impression NILE a-fib plerual effusions HTN DM BPH altered mental status pna decubitus ulcer leukocytosis plan continue supportive measures rest as per primary team
[2016-05-08] MEDS: LIDOCAINE 5% TOPICAL PATCH TP SCH (13:00)
[2016-05-08] MEDS: DEXTROSE 5%-WATER - 1,000 ML IV SCH ×2 (13:49→15:51)
--- NOTE | 2016-05-08 14:26 | PN ---
Progress Note, Physician Chief Complaint: 05/06/16 86 year old male s/p recently discharged from the hospital (04/19) ; re presents from [place] for lethargy and a change in mental status. HX a-fib, DM, HTN, gastric cancer, and hyperlipidemia. PT unable to give HX- no family by bedside, appears cachectic and decondtioned ; only moans elevated WBC--though this is normalizing, hypernatremic, no sig change on Repeat HD CT FU : pt laying more comfortably PMD note seen, family agrees on comfort care - Current Medication List Current Medications: Active Medications Dextrose (D5w -) 1,000 mls @ 75 mls/hr IV ASDIR [facility] Lidocaine (Lidoderm Patch -) 2 patch TP DAILY [facility] Last Admin: 05/08/16 13:00 Dose: 2 patch Morphine Sulfate (Morphine Injection -) 1 mg IVPUSH Q6H PRN PRN Reason: PAIN Last Admin: 05/07/16 20:00 Dose: 1 mg Morphine Sulfate (Morphine Injection -) 1 mg IVPUSH Q8H PRN PRN Reason: PAIN Morphine Sulfate (Morphine Injection -) 1 mg IVPUSH Q4H PRN PRN Reason: PAIN Stop: 05/14/16 07:54 - Objective Vital Signs: Vital Signs Temperature 97.2 F L 05/08/16 06:00 Pulse Rate 74 05/08/16 10:00 Respiratory Rate 20 05/08/16 10:00 Blood Pressure 105/65 05/08/16 10:00 O2 Sat by Pulse Oximetry (%) 98 05/08/16 10:00 Labs: CBC, BMP 05/07/16 05:55 05/07/16 05:55 INR, PTT INR 1.79 (0.82-1.09) H 05/04/16 10:35 Problem List - Problems (1) A-fib Code(s): I48.91 - UNSPECIFIED ATRIAL FIBRILLATION Qualifiers: Atrial fibrillation type: chronic Qualified Code(s): I48.2 - Chronic atrial fibrillation (2) Hypernatremia Code(s): E87.0 - HYPEROSMOLALITY AND HYPERNATREMIA (3) Pneumonia Code(s): J18.9 - PNEUMONIA, UNSPECIFIED ORGANISM Qualifiers: Pneumonia type: due to unspecified organism Laterality: left Lung location: lower lobe of lung Qualified Code(s): J18.9 - Pneumonia, unspecified organism (4) Dementia Code(s): F03.90 - UNSPECIFIED DEMENTIA WITHOUT BEHAVIORAL DISTURBANCE (5) Encephalopathy Code(s): G93.40 - ENCEPHALOPATHY, UNSPECIFIED (6) Malnutrition Code(s): E46 - UNSPECIFIED PROTEIN-CALORIE MALNUTRITION Assessment/Plan 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
[2016-05-08] MEDS: morphine CARPU-JECT 2 MG/1 ML DISP.SYRIN IVPUSH PRN (15:45)
--- NOTE | 2016-05-08 15:52 | PN ---
Progress Note, Physician History of Present Illness: patient little stable today neurology note noted family pursuing comfort care - Current Medication List Current Medications: Active Medications Dextrose (D5w -) 1,000 mls @ 75 mls/hr IV ASDIR [facility] Lidocaine (Lidoderm Patch -) 2 patch TP DAILY [facility] Last Admin: 05/08/16 13:00 Dose: 2 patch Morphine Sulfate (Morphine Injection -) 1 mg IVPUSH Q6H PRN PRN Reason: PAIN Last Admin: 05/07/16 20:00 Dose: 1 mg Morphine Sulfate (Morphine Injection -) 1 mg IVPUSH Q8H PRN PRN Reason: PAIN Morphine Sulfate (Morphine Injection -) 1 mg IVPUSH Q4H PRN PRN Reason: PAIN Stop: 05/14/16 07:54 - Objective Vital Signs: Vital Signs Temperature 98 F 05/08/16 14:36 Pulse Rate 82 05/08/16 14:36 Respiratory Rate 18 05/08/16 14:36 Blood Pressure 112/68 05/08/16 14:36 O2 Sat by Pulse Oximetry (%) 98 05/08/16 10:00 Constitutional: Yes: Calm, Mild Distress Cardiovascular: Yes: Regular Rate and Rhythm Respiratory: Yes: Regular, Poor Air Entry Gastrointestinal: Yes: Normal Bowel Sounds, Soft Musculoskeletal: Yes: Other Extremities: Yes: Other (multiple tears) Wound/Incision: Yes: Other Neurological: Yes: Confusion, Other Psychiatric: Yes: Other Labs: CBC, BMP 05/07/16 05:55 05/07/16 05:55 INR, PTT INR 1.79 (0.82-1.09) H 05/04/16 10:35 Assessment/Plan - Problems (1) A-fib Code(s): I48.91 - UNSPECIFIED ATRIAL FIBRILLATION Qualifiers: Atrial fibrillation type: chronic Qualified Code(s): I48.2 - Chronic atrial fibrillation (2) Hypernatremia Code(s): E87.0 - HYPEROSMOLALITY AND HYPERNATREMIA (3) Pneumonia Code(s): J18.9 - PNEUMONIA, UNSPECIFIED ORGANISM Qualifiers: Pneumonia type: due to unspecified organism Laterality: left Lung location: lower lobe of lung Qualified Code(s): J18.9 - Pneumonia, unspecified organism (4) Dementia Code(s): F03.90 - UNSPECIFIED DEMENTIA WITHOUT BEHAVIORAL DISTURBANCE (5) Gastric adenocarcinoma Code(s): C16.9 - MALIGNANT NEOPLASM OF STOMACH, UNSPECIFIED (6) Pleural effusion Code(s): J90 - PLEURAL EFFUSION, NOT ELSEWHERE CLASSIFIED Impression NILE a-fib plerual effusions HTN DM BPH altered mental status pna decubitus ulcer leukocytosis plan continue supportive measures rest as per primary team
[2016-05-09] MEDS: LIDOCAINE 5% TOPICAL PATCH TP SCH (09:39)
--- NOTE | 2016-05-09 10:02 | PN ---
Progress Note, Physician - Current Medication List Current Medications: Active Medications Dextrose (D5w -) 1,000 mls @ 75 mls/hr IV ASDIR [facility] Last Admin: 05/08/16 15:51 Dose: 75 mls/hr Lidocaine (Lidoderm Patch -) 2 patch TP DAILY [facility] Last Admin: 05/09/16 09:39 Dose: 2 patch Morphine Sulfate (Morphine Injection -) 1 mg IVPUSH Q6H PRN PRN Reason: PAIN Last Admin: 05/08/16 15:45 Dose: 1 mg Morphine Sulfate (Morphine Injection -) 1 mg IVPUSH Q8H PRN PRN Reason: PAIN Morphine Sulfate (Morphine Injection -) 1 mg IVPUSH Q4H PRN PRN Reason: PAIN Stop: 05/14/16 07:54 - Objective Vital Signs: Vital Signs Temperature 97.4 F L 05/09/16 06:00 Pulse Rate 97 H 05/09/16 06:00 Respiratory Rate 20 05/09/16 06:00 Blood Pressure 130/82 05/09/16 06:00 O2 Sat by Pulse Oximetry (%) 98 05/08/16 21:00 Labs: CBC, BMP 05/07/16 05:55 05/07/16 05:55 INR, PTT INR 1.79 (0.82-1.09) H 05/04/16 10:35 Assessment/Plan 86 yo with h/o a-fib, HTN, HL, DM, gastric cancer s/p gastrectomy, BPH requiring [place], dementia, cholecystectomy, sacral ulcer who presents with lethargy and hypernatremia. AFib - reasonable rate control given clinical status. currently npo. - on last admission cards c/s discussed with pmd: --> at baseline pt lives with family member and is not highly confused or suffering from significant dementia ; not thought to be fall risk and no h/o pathological bleeding. CHADS-VASC score of 4. Was switched from coumadin to eliquis 2.5 mg bid. -Allergy to ASA - NPO on this admission so initially AC with lovenox which has now been stopped by pmd after weighing risk/benefit of ongoing anticoagulation given extensive bruising and ongoing drop in hemoglobin and overall prognosis. --> pursuing comfort care confusion, encephalopathy -likely toxic-metabolic. head CT unremarkable. Pleural effusion - On last admit, per CXR 04/23 report, pleural fluid had resolved with diuresis. --> subsequently stopped diuresis due to hypernatremia. Now with reaccumulation vs. infiltrate/infection. - Clinically appears most c/w pna. Held diuresis,and given IVF for hypernatremia, per renal. Abx per ID. --> Now stopped (GOC) hypernatremia: - improved on IVF HTN -currently running low off anti-hypertensives. NPO. No further interventions per updated goals of care. h/o gastric cancer - recent mrcp with dilated CBD, intrahepatic biliary ducts and pancreatic duct. No mass visualized, but could not exclude--seen by GI then, defer to pmd/GI
--- NOTE | 2016-05-09 13:59 | PN ---
Progress Note, Physician - Current Medication List Current Medications: Active Medications Dextrose (D5w -) 1,000 mls @ 75 mls/hr IV ASDIR [facility] Last Admin: 05/08/16 15:51 Dose: 75 mls/hr Lidocaine (Lidoderm Patch -) 2 patch TP DAILY [facility] Last Admin: 05/09/16 09:39 Dose: 2 patch Morphine Sulfate (Morphine Injection -) 1 mg IVPUSH Q6H PRN PRN Reason: PAIN Last Admin: 05/08/16 15:45 Dose: 1 mg Morphine Sulfate (Morphine Injection -) 1 mg IVPUSH Q8H PRN PRN Reason: PAIN Morphine Sulfate (Morphine Injection -) 1 mg IVPUSH Q4H PRN PRN Reason: PAIN Stop: 05/14/16 07:54 - Objective Vital Signs: Vital Signs Temperature 97.4 F L 05/09/16 06:00 Pulse Rate 97 H 05/09/16 06:00 Respiratory Rate 20 05/09/16 06:00 Blood Pressure 130/82 05/09/16 06:00 O2 Sat by Pulse Oximetry (%) 98 05/08/16 21:00 Labs: CBC, BMP 05/07/16 05:55 05/07/16 05:55 INR, PTT INR 1.79 (0.82-1.09) H 05/04/16 10:35 Assessment/Plan pt status no change vss plan palitive care on case ? [facility]
[2016-05-09] MEDS: DEXTROSE 5%-WATER - 1,000 ML IV SCH (14:34)
--- NOTE | 2016-05-09 16:15 | PN ---
Progress Note, Physician History of Present Illness: patient continues to do poorly confused left arm skin tear bleeding - Current Medication List Current Medications: Active Medications Dextrose (D5w -) 1,000 mls @ 75 mls/hr IV ASDIR [facility] Last Admin: 05/09/16 14:34 Dose: Not Given Lidocaine (Lidoderm Patch -) 2 patch TP DAILY [facility] Last Admin: 05/09/16 09:39 Dose: 2 patch Morphine Sulfate (Morphine Injection -) 1 mg IVPUSH Q6H PRN PRN Reason: PAIN Last Admin: 05/08/16 15:45 Dose: 1 mg Morphine Sulfate (Morphine Injection -) 1 mg IVPUSH Q8H PRN PRN Reason: PAIN Morphine Sulfate (Morphine Injection -) 1 mg IVPUSH Q4H PRN PRN Reason: PAIN Stop: 05/14/16 07:54 - Objective Vital Signs: Vital Signs Temperature 98.4 F 05/09/16 14:00 Pulse Rate 91 H 05/09/16 14:00 Respiratory Rate 18 05/09/16 14:00 Blood Pressure 130/82 05/09/16 06:00 O2 Sat by Pulse Oximetry (%) 98 05/08/16 21:00 Constitutional: Yes: Other Eyes: Yes: Conjunctiva Clear Cardiovascular: Yes: Regular Rate and Rhythm Respiratory: Yes: Poor Air Entry Gastrointestinal: Yes: Normal Bowel Sounds, Soft Extremities: Yes: Other Wound/Incision: Yes: Other (multiple skin tears and bruises) Neurological: Yes: Confusion Psychiatric: Yes: Other Labs: CBC, BMP 05/07/16 05:55 05/07/16 05:55 INR, PTT INR 1.79 (0.82-1.09) H 05/04/16 10:35 Assessment/Plan - Problems (1) A-fib Code(s): I48.91 - UNSPECIFIED ATRIAL FIBRILLATION Qualifiers: Atrial fibrillation type: chronic Qualified Code(s): I48.2 - Chronic atrial fibrillation (2) Hypernatremia Code(s): E87.0 - HYPEROSMOLALITY AND HYPERNATREMIA (3) Pneumonia Code(s): J18.9 - PNEUMONIA, UNSPECIFIED ORGANISM Qualifiers: Pneumonia type: due to unspecified organism Laterality: left Lung location: lower lobe of lung Qualified Code(s): J18.9 - Pneumonia, unspecified organism (4) Dementia Code(s): F03.90 - UNSPECIFIED DEMENTIA WITHOUT BEHAVIORAL DISTURBANCE (5) Gastric adenocarcinoma Code(s): C16.9 - MALIGNANT NEOPLASM OF STOMACH, UNSPECIFIED (6) Pleural effusion Code(s): J90 - PLEURAL EFFUSION, NOT ELSEWHERE CLASSIFIED Impression NILE a-fib plerual effusions HTN DM BPH altered mental status pna decubitus ulcer leukocytosis plan continue supportive measures rest as per primary team plan for retirement nutrition hydration
--- NOTE | 2016-05-09 19:08 | PN ---
Progress Note, Physician History of Present Illness: 05/06/16 86 year old male s/p recently discharged from the hospital (04/19) ; re presents from [place] for lethargy and a change in mental status. HX a-fib, DM, HTN, gastric cancer, and hyperlipidemia. PT unable to give HX- no family by bedside, appears cachectic and decondtioned ; only moans elevated WBC--though this is normalizing, hypernatremic, no sig change on Repeat HD CT FU : pt laying in bed, nonpurposeful movements L > R UE sig skin fragility with bleeding scoriations, periorbital bruising - Current Medication List Current Medications: Active Medications Dextrose (D5w -) 1,000 mls @ 75 mls/hr IV ASDIR [facility] Last Admin: 05/09/16 14:34 Dose: Not Given Lidocaine (Lidoderm Patch -) 2 patch TP DAILY [facility] Last Admin: 05/09/16 09:39 Dose: 2 patch Morphine Sulfate (Morphine Injection -) 1 mg IVPUSH Q6H PRN PRN Reason: PAIN Last Admin: 05/08/16 15:45 Dose: 1 mg Morphine Sulfate (Morphine Injection -) 1 mg IVPUSH Q8H PRN PRN Reason: PAIN Morphine Sulfate (Morphine Injection -) 1 mg IVPUSH Q4H PRN PRN Reason: PAIN Stop: 05/14/16 07:54 - Objective Vital Signs: Vital Signs Temperature 98.4 F 05/09/16 18:00 Pulse Rate 71 05/09/16 18:00 Respiratory Rate 18 05/09/16 18:00 Blood Pressure 136/83 05/09/16 18:00 O2 Sat by Pulse Oximetry (%) 96 05/09/16 08:00 Labs: CBC, BMP 05/07/16 05:55 05/07/16 05:55 INR, PTT INR 1.79 (0.82-1.09) H 05/04/16 10:35 Problem List - Problems (1) A-fib Code(s): I48.91 - UNSPECIFIED ATRIAL FIBRILLATION Qualifiers: Atrial fibrillation type: chronic Qualified Code(s): I48.2 - Chronic atrial fibrillation (2) Hypernatremia Code(s): E87.0 - HYPEROSMOLALITY AND HYPERNATREMIA (3) Pneumonia Code(s): J18.9 - PNEUMONIA, UNSPECIFIED ORGANISM Qualifiers: Pneumonia type: due to unspecified organism Laterality: left Lung location: lower lobe of lung Qualified Code(s): J18.9 - Pneumonia, unspecified organism (4) Dementia Code(s): F03.90 - UNSPECIFIED DEMENTIA WITHOUT BEHAVIORAL DISTURBANCE (5) Encephalopathy Code(s): G93.40 - ENCEPHALOPATHY, UNSPECIFIED (6) Malnutrition Code(s): E46 - UNSPECIFIED PROTEIN-CALORIE MALNUTRITION Assessment/Plan 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
[2016-05-10] MEDS: DEXTROSE 5%-WATER - 1,000 ML IV SCH ×2 (06:29→14:55)
[2016-05-10] MEDS: LIDOCAINE 5% TOPICAL PATCH TP SCH (09:18)
--- NOTE | 2016-05-10 10:53 | PN ---
Progress Note, Physician - Current Medication List Current Medications: Active Medications Dextrose (D5w -) 1,000 mls @ 75 mls/hr IV [facility] Last Admin: 05/10/16 06:29 Dose: 75 mls/hr Lidocaine (Lidoderm Patch -) 2 patch TP DAILY [facility] Last Admin: 05/10/16 09:18 Dose: 2 patch Morphine Sulfate (Morphine Injection -) 1 mg IVPUSH Q6H PRN PRN Reason: PAIN Last Admin: 05/08/16 15:45 Dose: 1 mg Morphine Sulfate (Morphine Injection -) 1 mg IVPUSH Q8H PRN PRN Reason: PAIN Morphine Sulfate (Morphine Injection -) 1 mg IVPUSH Q4H PRN PRN Reason: PAIN Stop: 05/14/16 07:54 - Objective Vital Signs: Vital Signs Temperature 97.5 F L 05/10/16 06:00 Pulse Rate 94 H 05/10/16 06:00 Respiratory Rate 18 05/10/16 06:00 Blood Pressure 123/56 05/10/16 06:00 O2 Sat by Pulse Oximetry (%) 96 05/09/16 21:00 Labs: CBC, BMP 05/07/16 05:55 05/07/16 05:55 INR, PTT INR 1.79 (0.82-1.09) H 05/04/16 10:35 Assessment/Plan pt comfortable vss speech swall eval feed if ok yo swallow spoke to d/c plan hosp care pnd for bed
--- NOTE | 2016-05-10 13:24 | PN ---
Progress Note, Physician History of Present Illness: stable no events in the room mental status confused - Current Medication List Current Medications: Active Medications Dextrose (D5w -) 1,000 mls @ 75 mls/hr IV ASDIR [facility] Last Admin: 05/10/16 06:29 Dose: 75 mls/hr Lidocaine (Lidoderm Patch -) 2 patch TP DAILY [facility] Last Admin: 05/10/16 09:18 Dose: 2 patch Morphine Sulfate (Morphine Injection -) 1 mg IVPUSH Q4H PRN PRN Reason: PAIN Stop: 05/14/16 07:54 - Objective Vital Signs: Vital Signs Temperature 98.7 F 05/10/16 08:00 Pulse Rate 93 H 05/10/16 08:00 Respiratory Rate 20 05/10/16 08:00 Blood Pressure 130/70 05/10/16 08:00 O2 Sat by Pulse Oximetry (%) 96 05/10/16 08:00 Constitutional: Yes: Calm, Mild Distress Cardiovascular: Yes: Regular Rate and Rhythm Gastrointestinal: Yes: Normal Bowel Sounds, Soft Extremities: Yes: Other (multiple skin tears) Wound/Incision: Yes: Other (multiple skin tears) Neurological: Yes: Other Psychiatric: Yes: Other Labs: CBC, BMP 05/07/16 05:55 05/07/16 05:55 INR, PTT INR 1.79 (0.82-1.09) H 05/04/16 10:35 Assessment/Plan - Problems (1) A-fib Code(s): I48.91 - UNSPECIFIED ATRIAL FIBRILLATION Qualifiers: Atrial fibrillation type: chronic Qualified Code(s): I48.2 - Chronic atrial fibrillation (2) Hypernatremia Code(s): E87.0 - HYPEROSMOLALITY AND HYPERNATREMIA (3) Pneumonia Code(s): J18.9 - PNEUMONIA, UNSPECIFIED ORGANISM Qualifiers: Pneumonia type: due to unspecified organism Laterality: left Lung location: lower lobe of lung Qualified Code(s): J18.9 - Pneumonia, unspecified organism (4) Dementia Code(s): F03.90 - UNSPECIFIED DEMENTIA WITHOUT BEHAVIORAL DISTURBANCE (5) Gastric adenocarcinoma Code(s): C16.9 - MALIGNANT NEOPLASM OF STOMACH, UNSPECIFIED (6) Pleural effusion Code(s): J90 - PLEURAL EFFUSION, NOT ELSEWHERE CLASSIFIED Impression NILE a-fib plerual effusions HTN DM BPH altered mental status pna decubitus ulcer leukocytosis plan continue supportive measures rest as per primary team plan for senior living nutrition hydration swallow studies
--- NOTE | 2016-05-10 14:30 | PN ---
Progress Note, REFERENCE SERVICES HEAD - Note Progress Note: Pt is more alert, verbal in [place]. Dysphonic. Multiple swallows generated per 1/2 tsp, with brief throat clear but no cough. Silent aspiration can not be r/o at bedside. [place] vs home hospice being considered. Case reviewed with pt's , Primary nurse and PMD, Dr. Sathish Amador. For MBS to further assess swallowing function, r/o aspiration and initiate PO safely. Pt has not had a previous MBS.
--- NOTE | 2016-05-10 16:41 | PN ---
Progress Note, Physician History of Present Illness: 05/06/16 86 year old male s/p recently discharged from the hospital (04/19) ; re presents from [place] for lethargy and a change in mental status. HX a-fib, DM, HTN, gastric cancer, and hyperlipidemia. PT unable to give HX- no family by bedside, appears cachectic and decondtioned ; only moans elevated WBC--though this is normalizing, hypernatremic, no sig change on Repeat HD CT 05/10/16 FU : more awake today and will follow simple requests s/p swallow eval awaiting [place] bed - Current Medication List Current Medications: Active Medications Dextrose (D5w -) 1,000 mls @ 75 mls/hr IV ASDIR [facility] Last Admin: 05/10/16 14:55 Dose: Not Given Lidocaine (Lidoderm Patch -) 2 patch TP DAILY [facility] Last Admin: 05/10/16 09:18 Dose: 2 patch Morphine Sulfate (Morphine Injection -) 1 mg IVPUSH Q4H PRN PRN Reason: PAIN Stop: 05/14/16 07:54 - Objective Vital Signs: Vital Signs Temperature 97.8 F 05/10/16 13:24 Pulse Rate 84 05/10/16 13:24 Respiratory Rate 18 05/10/16 13:24 Blood Pressure 130/70 05/10/16 08:00 O2 Sat by Pulse Oximetry (%) 96 05/10/16 08:00 Neurological: Yes: Other (awake and can attend ; blink to threat, can protrude tongue on request and repeats , distally weakness x 4) Labs: CBC, BMP 05/07/16 05:55 05/07/16 05:55 INR, PTT INR 1.79 (0.82-1.09) H 05/04/16 10:35 Problem List - Problems (1) A-fib Code(s): I48.91 - UNSPECIFIED ATRIAL FIBRILLATION Qualifiers: Atrial fibrillation type: chronic Qualified Code(s): I48.2 - Chronic atrial fibrillation (2) Hypernatremia Code(s): E87.0 - HYPEROSMOLALITY AND HYPERNATREMIA (3) Pneumonia Code(s): J18.9 - PNEUMONIA, UNSPECIFIED ORGANISM Qualifiers: Pneumonia type: due to unspecified organism Laterality: left Lung location: lower lobe of lung Qualified Code(s): J18.9 - Pneumonia, unspecified organism (4) Dementia Code(s): F03.90 - UNSPECIFIED DEMENTIA WITHOUT BEHAVIORAL DISTURBANCE (5) Encephalopathy Code(s): G93.40 - ENCEPHALOPATHY, UNSPECIFIED (6) Malnutrition Code(s): E46 - UNSPECIFIED PROTEIN-CALORIE MALNUTRITION Assessment/Plan 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
[2016-05-11] MEDS: DEXTROSE 5%-WATER - 1,000 ML IV SCH ×3 (01:09→17:57)
[2016-05-11] MEDS: LIDOCAINE 5% TOPICAL PATCH TP SCH (10:18)
[2016-05-11] MEDS ORDERED: LEVOFLOXACIN 500 MG IVPB 100 ML IVPB ONE (10:48)
--- NOTE | 2016-05-11 15:33 | PN ---
Progress Note, Physician History of Present Illness: stable no events patient awaiting for transfer - Current Medication List Current Medications: Active Medications Dextrose (D5w -) 1,000 mls @ 75 mls/hr IV [facility] Last Admin: 05/11/16 10:18 Dose: 75 mls/hr Lidocaine (Lidoderm Patch -) 2 patch TP DAILY [facility] Last Admin: 05/11/16 10:18 Dose: 2 patch Morphine Sulfate (Morphine Injection -) 1 mg IVPUSH Q4H PRN PRN Reason: PAIN Stop: 05/14/16 07:54 - Objective Vital Signs: Vital Signs Temperature 97.3 F L 05/11/16 13:58 Pulse Rate 87 05/11/16 13:58 Respiratory Rate 17 05/11/16 13:58 Blood Pressure 126/75 05/11/16 09:00 O2 Sat by Pulse Oximetry (%) 99 05/11/16 09:00 Constitutional: Yes: Calm, Mild Distress Cardiovascular: Yes: Regular Rate and Rhythm Respiratory: Yes: Regular, Poor Air Entry Extremities: Yes: Other Neurological: Yes: Other Labs: CBC, BMP 05/07/16 05:55 05/07/16 05:55 INR, PTT INR 1.79 (0.82-1.09) H 05/04/16 10:35 Assessment/Plan - Problems (1) A-fib Code(s): I48.91 - UNSPECIFIED ATRIAL FIBRILLATION Qualifiers: Atrial fibrillation type: chronic Qualified Code(s): I48.2 - Chronic atrial fibrillation (2) Hypernatremia Code(s): E87.0 - HYPEROSMOLALITY AND HYPERNATREMIA (3) Pneumonia Code(s): J18.9 - PNEUMONIA, UNSPECIFIED ORGANISM Qualifiers: Pneumonia type: due to unspecified organism Laterality: left Lung location: lower lobe of lung Qualified Code(s): J18.9 - Pneumonia, unspecified organism (4) Dementia Code(s): F03.90 - UNSPECIFIED DEMENTIA WITHOUT BEHAVIORAL DISTURBANCE (5) 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
[2016-05-12] MEDS: LIDOCAINE 5% TOPICAL PATCH TP SCH (10:45)
[2016-05-13 08:49] VITALS: BP 118/75; PULSE 90; TEMP 97.3
[2016-05-13] MEDS: LIDOCAINE 5% TOPICAL PATCH TP SCH (09:55)
--- NOTE | 2016-05-13 12:22 | PN ---
Progress Note, CHILDHOOD TEACHER - Note Progress Note: Pending d/c to [facility].Awake. Voice more euphonic. Pt is tolerating puree and nectar thick liquids. Seems to accept sweeter foods more. Rec: magic cup Marinara sauce on puree Selected Entries 05/12/16 05/12/16 05/12/16 06:00 14:00 20:21 Breakfast NPO Lunch 50% Supper 100% Temperature 98.1 F 97.2 F L 98.5 F 05/13/16 05/13/16 05:18 08:48 Breakfast Lunch Supper Temperature 98.4 F 97.3 F L
== END 2016-05-13 14:21 | disposition hospice, inpatient (51) | DRG 91 ==
LOC: JER 09:30 → JERBED 12:10 → J4W 15:04 → J6S 05-08 15:37
PROVIDERS: ADMIT Family Medicine; ATTEND Family Medicine
DX: G92 Toxic encephalopathy (principal); J18.9 Pneumonia, unspecified organism; L89.153 Pressure ulcer of sacral region, stage 3; R64 Cachexia; E87.0 Hyperosmolality and hypernatremia; J90 Pleural effusion, not elsewhere classified; N17.9 Acute kidney failure, unspecified; Z68.1 Body mass index [BMI] 19.9 or less, adult; E46 Unspecified protein-calorie malnutrition; Z79.01 Long term (current) use of anticoagulants; E11.9 Type 2 diabetes mellitus without complications; Z85.028 Personal history of other malignant neoplasm of stomach; I10 Essential (primary) hypertension; E78.5 Hyperlipidemia, unspecified; E86.0 Dehydration; I48.2 Chronic atrial fibrillation; Z79.84 Long term (current) use of oral hypoglycemic drugs; F03.90 Unspecified dementia, unspecified severity, without behavioral disturbance, psychotic disturbance, mood disturbance, and anxiety; N40.0 Benign prostatic hyperplasia without lower urinary tract symptoms; E87.5 Hyperkalemia; R33.8 Other retention of urine; Z66 Do not resuscitate
CPT/HCPCS: 36415; 70450-TC; 71010-TC; 71035-TC; 73502-TC-RT; 73523-TC; 74020-TC; 74230-TC; 80048; 80053; 81003; 81015; 82550; 83036; 83605; 83735; 84484; 85025; 85610; 87040; 92611-GN; 93005; 93010; 99284-25